=== PATIENT | male | born 1945 | race African-American/Black ===

== ENCOUNTER 2018-01-07 03:13 | Emergency (ER) | payer MEDICARE ==
[2018-01-07] MEDS ORDERED: ACETAMINOPHEN TAB 325 MG TAB PO STA (03:31)
--- NOTE | 2018-01-07 03:35 | ED ---
Extremity Problem HPI <Chidi Caballero - Last Filed: 01/07/18 06:05> - General Source: patient, RN notes reviewed Mode of arrival: ambulatory Limitations: no limitations <Avani Gore - Last Filed: 01/07/18 17:26> - General Chief complaint: Extremity Problem,Nontraumatic Stated complaint: shoulder pain Time Seen by Provider: 01/07/18 03:27 - History of Present Illness Initial comments: This is a 72-year-old male who presents to the emergency department with chief complaint of left shoulder pain. Patient states that 2 days ago he tripped and fell landing on his left shoulder. He states that he was trying to get onto the bus and did not notice any pain at that time. He states that he has also been moving and lifting heavy objects recently. He states that this evening, while sleeping on his left side, he awoke with left shoulder pain. He admits that the pain is reproducible. He denies any fevers or chills, chest pain or shortness of breath, nausea or vomiting, diaphoresis, constipation or diarrhea. (Avani Gore) - Related Data Home Medications Medication Instructions Recorded Confirmed Unknown Otc Cold & Sinus 2 cap PO ONCE 07/11/17 07/11/17 Previous Rx's Medication Instructions Recorded Albuterol Inhaler [Ventolin Hfa 2 puff INHALATION Q6HR #1 inhaler 07/13/17 Inhaler] Azithromycin [Zithromax Tri-Blair] 500 mg PO DAILY #7 tab 07/13/17 Azithromycin [Zithromax] 500 mg PO DAILY #5 tab 07/13/17 Cefuroxime Axetil [Ceftin] 500 mg PO BID #10 tab 07/13/17 predniSONE 10 mg PO DIRECTED #30 tab 07/13/17 Budesonide-Formot 160-4.5 Mcg 2 puff INHALATION RT-BID #1 inh 07/15/17 [Symbicort 160-4.5 Mcg Inhaler] Multivitamins, Thera [Multivitamin 1 each PO DAILY@1200 #30 tab 07/15/17 (formulary)] Allergies Allergy/AdvReac Type Severity Reaction Status Date / Time No Known Allergies Allergy Verified 01/07/18 03:19 Review of Systems ROS Other: All systems not noted in ROS Statement are negative. <Chidi Caballero - Last Filed: 01/07/18 06:05> ROS Other: All systems not noted in ROS Statement are negative. <Avani Gore - Last Filed: 01/07/18 17:26> ROS Statement: Those systems with pertinent positive or pertinent negative responses have been documented in the HPI. Past Medical History Past Medical History: Osteoarthritis (OA) History of Any Multi-Drug Resistant Organisms: None Reported Past Surgical History: Orthopedic Surgery, Tonsillectomy Additional Past Surgical History / Comment(s): lt knee sx for torn ligaments Past Anesthesia/Blood Transfusion Reactions: No Reported Reaction Past Psychological History: No Psychological Hx Reported Smoking Status: Current some day smoker Past Alcohol Use History: Occasional Past Drug Use History: None Reported - Past Family History Mother Family Medical History: CVA/TIA Father History Unknown: Yes <Avani Gore - Last Filed: 01/07/18 17:26> General Exam <Chidi Caballero - Last Filed: 01/07/18 06:05> Limitations: no limitations <Avani Goer - Last Filed: 01/07/18 17:26> - General Exam Comments Initial Comments: General: Awake and alert, well-developed; in no apparent distress. HEENT: Head atraumatic, normocephalic. Pupils are equal, round and reactive to light. Extraocular movements intact. Oropharynx moist without erythema or exudate. Neck: Supple. Normal ROM. Cardiovascular: Regular rate and rhythm. No murmurs, rubs or gallops. Chest symmetrical. Respiratory: Lungs clear to auscultation bilaterally. No wheezes, rales or rhonchi. Normal respiratory effort with no use of accessory muscles. Musculoskeletal: Normal ROM of the left shoulder. There is tenderness along the left scapular spine and surrounding musculature. No obvious gross deformities. Sensation is intact. Radial pulses are 2+ equal and palpable bilaterally. Skin: [place], warm and dry without rashes or lesions. Neurological: Alert and oriented x3. CN II-XII grossly intact. Speech is fluent and answers are appropriate. No focal neuro deficits. Psychiatric: Normal mood and affect. No overt signs of depression or anxiety noted. (Avani Gore) Vital Signs 01/07/18 01/07/18 01/07/18 03:15 05:16 06:21 Temperature 97.8 F 97.8 F 98.4 F Pulse Rate 71 60 75 Respiratory 18 18 16 Rate Blood Pressure 137/82 131/73 122/75 O2 Sat by Pulse 100 100 99 Oximetry Medical Decision Making - Lab Data Result diagrams: 01/07/18 04:10 01/07/18 04:10 <Chidi Caballero - Last Filed: 01/07/18 06:05> - Lab Data Result diagrams: 01/07/18 04:10 01/07/18 04:10 - Radiology Data Radiology results: report reviewed <Avani Gore - Last Filed: 01/07/18 17:26> - Medical Decision Making This is a 72-year-old male who presents to the emergency department with chief complaint of left shoulder pain. Patient states that he fell 2 days ago and landed on his shoulder. He states that he woke tonight with left shoulder pain. Pain is reproducible and there is a tenderness along the left scapular spine. X-ray of the left shoulder revealed no acute abnormalities. This case was discussed with attending physician, Dr. Caballero. Recommended cardiac workup. Case signed over to Dr. Caballero at 4 AM. (Avani Gore) - Lab Data Lab Results 01/07/18 01/07/18 01/07/18 Range/Units 04:10 04:10 04:10 WBC 11.2 H (3.8-10.6) k/uL RBC 4.11 L (4.30-5.90) m/uL Hgb 13.5 (13.0-17.5) gm/dL Hct 39.7 (39.0-53.0) % MCV 96.5 (80.0-100.0) fL MCH 32.8 (25.0-35.0) pg MCHC 34.0 (31.0-37.0) g/dL RDW 12.9 (11.5-15.5) % Plt Count 276 (150-450) k/uL Neutrophils % 68 % Lymphocytes % 23 % Monocytes % 6 % Eosinophils % 2 % Basophils % 0 % Neutrophils # 7.6 (1.3-7.7) k/uL Lymphocytes # 2.5 (1.0-4.8) k/uL Monocytes # 0.7 (0-1.0) k/uL Eosinophils # 0.2 (0-0.7) k/uL Basophils # 0.0 (0-0.2) k/uL PT (9.0-12.0) sec INR (<1.2) APTT (22.0-30.0) sec Sodium 136 L (137-145) mmol/L Potassium 4.4 (3.5-5.1) mmol/L Chloride 100 (98-107) mmol/L Carbon Dioxide 26 (22-30) mmol/L Anion Gap 10 mmol/L BUN 7 L (9-20) mg/dL Creatinine 0.80 (0.66-1.25) mg/dL Est GFR (CKD-EPI)AfAm >90 (>60 ml/min/1.73 sqM) Est GFR (CKD-EPI)NonAf >90 (>60 ml/min/1.73 sqM) Glucose 85 (74-99) mg/dL Calcium 9.0 (8.4-10.2) mg/dL Magnesium 1.7 (1.6-2.3) mg/dL Total Bilirubin 0.5 (0.2-1.3) mg/dL AST 33 (17-59) U/L ALT 25 (21-72) U/L Alkaline Phosphatase 79 (38-126) U/L Total Creatine Kinase 257 H (55-170) U/L CK-MB (CK-2) 2.7 H* (0.0-2.4) ng/mL CK-MB (CK-2) Rel Index 1.1 Troponin I <0.012 (0.000-0.034) ng/mL Total Protein 6.9 (6.3-8.2) g/dL Albumin 4.1 (3.5-5.0) g/dL 01/07/18 Range/Units 04:10 WBC (3.8-10.6) k/uL RBC (4.30-5.90) m/uL Hgb (13.0-17.5) gm/dL Hct (39.0-53.0) % MCV (80.0-100.0) fL MCH (25.0-35.0) pg MCHC (31.0-37.0) g/dL RDW (11.5-15.5) % Plt Count (150-450) k/uL Neutrophils % % Lymphocytes % % Monocytes % % Eosinophils % % Basophils % % Neutrophils # (1.3-7.7) k/uL Lymphocytes # (1.0-4.8) k/uL Monocytes # (0-1.0) k/uL Eosinophils # (0-0.7) k/uL Basophils # (0-0.2) k/uL PT 9.9 (9.0-12.0) sec INR 1.0 (<1.2) APTT 23.1 (22.0-30.0) sec Sodium (137-145) mmol/L Potassium (3.5-5.1) mmol/L Chloride (98-107) mmol/L Carbon Dioxide (22-30) mmol/L Anion Gap mmol/L BUN (9-20) mg/dL Creatinine (0.66-1.25) mg/dL Est GFR (CKD-EPI)AfAm (>60 ml/min/1.73 sqM) Est GFR (CKD-EPI)NonAf (>60 ml/min/1.73 sqM) Glucose (74-99) mg/dL Calcium (8.4-10.2) mg/dL Magnesium (1.6-2.3) mg/dL Total Bilirubin (0.2-1.3) mg/dL AST (17-59) U/L ALT (21-72) U/L Alkaline Phosphatase (38-126) U/L Total Creatine Kinase (55-170) U/L CK-MB (CK-2) (0.0-2.4) ng/mL CK-MB (CK-2) Rel Index Troponin I (0.000-0.034) ng/mL Total Protein (6.3-8.2) g/dL Albumin (3.5-5.0) g/dL - EKG Data EKG Comments: EKG 3:40:46. Normal sinus rhythm. Early repolarization. Ventricular rate 63 bpm, ID interval 182, QRS duration 96, QT/QTC 434/444 (Avani Gore) - Radiology Data X-ray left shoulder impression: Negative left shoulder exam. (Avani Gore) Disposition Is patient prescribed a controlled substance at d/c from ED?: No <Chidi Caballero - Last Filed: 01/07/18 06:05> Is patient prescribed a controlled substance at d/c from ED?: No <Avani Gore - Last Filed: 01/07/18 17:26> Clinical Impression: Shoulder pain, left Disposition: HOME SELF-CARE Condition: Good Instructions: Shoulder Pain (ED) Referrals: None,Stated [Primary Care Provider] - 1-2 days Elysia Camacho MD [REFERRING] - 1-2 days
--- NOTE | 2018-01-07 03:44 | XR ---
EXAMINATION TYPE: XR shoulder complete LT DATE OF EXAM: 01/07/2018 COMPARISON: NONE HISTORY: Left shoulder pain TECHNIQUE: 3 views FINDINGS: I see no fracture nor dislocation. Joint spaces are normal. There are no pathologic calcifi cations. IMPRESSION: Negative left shoulder exam.
[2018-01-07 04:20] LABS: Basophils % (A) 0 %; Eosinophils # (A) 0.2 k/uL (0-0.7); Eosinophils % (A) 2 %; HCT 39.7 % (39.0-53.0); HGB 13.5 gm/dL (13.0-17.5); Lymphocytes # (A) 2.5 k/uL (1.0-4.8); Lymphocytes % (A) 23 %; MCH 32.8 pg (25.0-35.0); MCV 96.5 fL (80.0-100.0); Mean Platelet Volume 6.2; Monocytes # (A) 0.7 k/uL (0-1.0); Monocytes % (A) 6 %; Neutrophils # (A) 7.6 k/uL (1.3-7.7); Neutrophils % (A) 68 %; Platelet Count 276 k/uL (150-450); RBC 4.11 m/uL (4.30-5.90); RDW 12.9 % (11.5-15.5); WBC 11.2 k/uL (3.8-10.6)
[2018-01-07 04:28] LABS: Partial Thromboplastin Time 23.1 sec (22.0-30.0); Prothrombin Time 9.9 sec (9.0-12.0)
[2018-01-07 04:30] LABS: ALT 25 U/L (21-72); AST 33 U/L (17-59); Albumin 4.1 g/dL (3.5-5.0); Alkaline Phosphatase 79 U/L (38-126); Anion Gap 10 mmol/L; Blood Urea Nitrogen 7 mg/dL (9-20); Carbon Dioxide 26 mmol/L (22-30); Chloride 100 mmol/L (98-107); Glucose 85 mg/dL (74-99); Magnesium 1.7 mg/dL (1.6-2.3); Potassium 4.4 mmol/L (3.5-5.1); Sodium 136 mmol/L (137-145); Total Bilirubin 0.5 mg/dL (0.2-1.3); Total Protein 6.9 g/dL (6.3-8.2)
[2018-01-07 04:32] LABS: Creatine Kinase 257 U/L (55-170)
--- NOTE | 2018-01-07 04:33 | XR ---
EXAMINATION TYPE: XR chest 2V DATE OF EXAM: 01/07/2018 COMPARISON: 07/14/2017 HISTORY: Chest pain TECHNIQUE: Frontal and lateral views of the chest are obtained. FINDINGS: Heart and mediastinum are normal. Lungs are clear. There are calcified granuloma at the [facility] pulmonary hilum. Bony thorax is intact. There is no pleural effusion. IMPRESSION: No active cardiopulmonary disease. No change.
[2018-01-07 04:45] LABS: Troponin I <0.012 ng/mL (0.000-0.034)
[2018-01-07 04:48] LABS: Creatine Kinase MB 2.7 ng/mL (0.0-2.4)
[2018-01-07 06:23] VITALS: BP 122/75; PULSE 75; RESP 16; TEMP 98.4
== END 2018-01-07 06:23 | disposition home or self-care (01) ==
LOC: EC 03:13
DX: M25.512 Pain in left shoulder (principal); F17.200 Nicotine dependence, unspecified, uncomplicated; Z79.899 Other long term (current) drug therapy; W01.0XXA Fall on same level from slipping, tripping and stumbling without subsequent striking against object, initial encounter; X50.0XXA Overexertion from strenuous movement or load, initial encounter; Y93.89 Activity, other specified
CPT/HCPCS: 36415; 71046; 80053; 82550; 82553; 83735; 84484; 85025; 85610; 85730; 93005; 99284

== ENCOUNTER 2019-01-05 18:10 | Emergency (ER) | payer MEDICARE ==
[2019-01-05 18:12] VITALS: RESP 18
[2019-01-05] MEDS ORDERED: SODIUM CHLORIDE 0.9% 1,000 ML IV STA ×2 (18:15→19:42)
--- NOTE | 2019-01-05 19:06 | ED ---
Nausea/Vomiting/Diarrhea HPI - General Chief complaint: Nausea/Vomiting/Diarrhea Stated complaint: Stomach pain/vomiting Time Seen by Provider: 01/05/19 18:15 Source: patient, RN notes reviewed Mode of arrival: ambulatory Limitations: no limitations - History of Present Illness Initial comments: This is a 73-year-old male the ER for evaluation. This man presents for evaluation of nausea vomiting, sudden onset of nausea vomiting prior to arrival. No abdominal pain associated. He also had some bowel movements of loose stools. Patient did actively spit up vomiting here in the emergency department. Denies fever. No prior history of similar issues. No failure hours of similar complaint. No recent travel history or sick contacts no blood MD complaint: nausea, vomiting, diarrhea -: hour(s) Description of Vomiting: food contents, watery Description of Diarrhea: water, mucous Associated Abdominal Pain: No Severity: mild Severity scale (1-10): 3 Consistency: constant Improves with: none Worsens with: none Associated Symptoms: nausea/vomiting, weakness - Related Data Home Medications Medication Instructions Recorded Confirmed Unknown Otc Cold & Sinus 2 cap PO ONCE 07/11/17 07/11/17 Previous Rx's Medication Instructions Recorded Albuterol Inhaler [Ventolin Hfa 2 puff INHALATION Q6HR #1 inhaler 07/13/17 Inhaler] Azithromycin [Zithromax Tri-Blair] 500 mg PO DAILY #7 tab 07/13/17 Azithromycin [Zithromax] 500 mg PO DAILY #5 tab 07/13/17 Cefuroxime Axetil [Ceftin] 500 mg PO BID #10 tab 07/13/17 predniSONE 10 mg PO DIRECTED #30 tab 07/13/17 Budesonide-Formot 160-4.5 Mcg 2 puff INHALATION RT-BID #1 inh 07/15/17 [Symbicort 160-4.5 Mcg Inhaler] Multivitamins, Thera [Multivitamin 1 each PO DAILY@1200 #30 tab 07/15/17 (formulary)] Allergies Allergy/AdvReac Type Severity Reaction Status Date / Time No Known Allergies Allergy Verified 01/05/19 18:12 Review of Systems ROS Statement: Those systems with pertinent positive or pertinent negative responses have been documented in the HPI. ROS Other: All systems not noted in ROS Statement are negative. Past Medical History Past Medical History: Osteoarthritis (OA) History of Any Multi-Drug Resistant Organisms: None Reported Past Surgical History: Orthopedic Surgery, Tonsillectomy Additional Past Surgical History / Comment(s): lt knee sx for torn ligaments Past Anesthesia/Blood Transfusion Reactions: No Reported Reaction Past Psychological History: No Psychological Hx Reported Smoking Status: Current some day smoker Past Alcohol Use History: Occasional Past Drug Use History: None Reported - Past Family History Mother Family Medical History: CVA/TIA Father History Unknown: Yes General Exam Limitations: no limitations General appearance: alert, in no apparent distress Head exam: Present: atraumatic, normocephalic, normal inspection Eye exam: Present: normal appearance, PERRL, EOMI. Absent: scleral icterus, conjunctival injection, periorbital swelling ENT exam: Present: normal exam, mucous membranes moist Neck exam: Present: normal inspection. Absent: tenderness, meningismus, lymphadenopathy Respiratory exam: Present: normal lung sounds bilaterally. Absent: respiratory distress, wheezes, rales, rhonchi, stridor Cardiovascular Exam: Present: normal rhythm, tachycardia, normal heart sounds. Absent: systolic murmur, diastolic murmur, rubs, gallop, clicks GI/Abdominal exam: Present: soft, normal bowel sounds. Absent: distended, tenderness, guarding, rebound, rigid Extremities exam: Present: normal inspection, full ROM, normal capillary refill. Absent: tenderness, pedal edema, joint swelling, calf tenderness Back exam: Present: normal inspection Neurological exam: Present: alert, oriented X3, CN II-XII intact Psychiatric exam: Present: normal affect, normal mood Skin exam: Present: warm, dry, intact, normal color. Absent: rash Course Vital Signs 01/05/19 18:11 Temperature 97.8 F Pulse Rate 101 H Respiratory 18 Rate Blood Pressure 163/80 O2 Sat by Pulse 98 Oximetry - Reevaluation(s) Reevaluation #1: 01/05/19 19:05 Medical record reviewed Reevaluation #2: 01/05/19 19:06 Symptoms resolved Medical Decision Making - Medical Decision Making 73 male the ER for evaluation nausea vomiting, diarrhea. Gastroneuritis. Symptoms improved will discharge on Zofran. - Lab Data Result diagrams: 01/05/19 18:51 01/05/19 18:51 Lab Results 01/05/19 01/05/19 01/05/19 Range/Units 18:51 18:51 18:51 WBC 11.8 H (3.8-10.6) k/uL RBC 4.53 (4.30-5.90) m/uL Hgb 15.0 (13.0-17.5) gm/dL Hct 45.3 (39.0-53.0) % MCV 100.2 H (80.0-100.0) fL MCH 33.2 (25.0-35.0) pg MCHC 33.1 (31.0-37.0) g/dL RDW 13.8 (11.5-15.5) % Plt Count 301 (150-450) k/uL Neutrophils % 76 % Lymphocytes % 18 % Monocytes % 3 % Eosinophils % 2 % Basophils % 0 % Neutrophils # 8.9 H (1.3-7.7) k/uL Lymphocytes # 2.1 (1.0-4.8) k/uL Monocytes # 0.4 (0-1.0) k/uL Eosinophils # 0.3 (0-0.7) k/uL Basophils # 0.0 (0-0.2) k/uL Sodium 137 (137-145) mmol/L Potassium 4.8 (3.5-5.1) mmol/L Chloride 98 (98-107) mmol/L Carbon Dioxide 19 L (22-30) mmol/L Anion Gap 20 mmol/L BUN 13 (9-20) mg/dL Creatinine 0.89 (0.66-1.25) mg/dL Est GFR (CKD-EPI)AfAm >90 (>60 ml/min/1.73 sqM) Est GFR (CKD-EPI)NonAf 86 (>60 ml/min/1.73 sqM) Glucose 64 L (74-99) mg/dL Plasma Lactic Acid Justin 3.3 H* (0.7-2.0) mmol/L Calcium 10.4 H (8.4-10.2) mg/dL Total Bilirubin 0.9 (0.2-1.3) mg/dL AST 45 (17-59) U/L ALT 14 L (21-72) U/L Alkaline Phosphatase 112 (38-126) U/L Creatine Kinase 153 (55-170) U/L Total Protein 8.2 (6.3-8.2) g/dL Albumin 4.9 (3.5-5.0) g/dL Amylase 105 (30-110) U/L Lipase 146 (23-300) U/L Disposition Clinical Impression: Dehydration, Gastroenteritis, Nausea & vomiting Disposition: HOME SELF-CARE Condition: Good Instructions (If sedation given, give patient instructions): Acute Nausea and Vomiting (ED) Is patient prescribed a controlled substance at d/c from ED?: No Referrals: None,Stated [Primary Care Provider] - 1-2 days
[2019-01-05 19:08] LABS: Basophils % (A) 0 %; Eosinophils # (A) 0.3 k/uL (0-0.7); Eosinophils % (A) 2 %; HCT 45.3 % (39.0-53.0); Lymphocytes # (A) 2.1 k/uL (1.0-4.8); Lymphocytes % (A) 18 %; MCH 33.2 pg (25.0-35.0); MCHC 33.1 g/dL (31.0-37.0); MCV 100.2 fL (80.0-100.0); Mean Platelet Volume 6.9; Monocytes # (A) 0.4 k/uL (0-1.0); Monocytes % (A) 3 %; Neutrophils # (A) 8.9 k/uL (1.3-7.7); Neutrophils % (A) 76 %; Platelet Count 301 k/uL (150-450); RBC 4.53 m/uL (4.30-5.90); RDW 13.8 % (11.5-15.5); WBC 11.8 k/uL (3.8-10.6)
[2019-01-05] MEDS ORDERED: HYDROmorphone 0.5 MG/0.5 ML SYRINGE IVP STA (19:12)
[2019-01-05 19:17] LABS: ALT 14 U/L (21-72); AST 45 U/L (17-59); Albumin 4.9 g/dL (3.5-5.0); Alkaline Phosphatase 112 U/L (38-126); Amylase 105 U/L (30-110); Anion Gap 20 mmol/L; Blood Urea Nitrogen 13 mg/dL (9-20); Calcium 10.4 mg/dL (8.4-10.2); Carbon Dioxide 19 mmol/L (22-30); Chloride 98 mmol/L (98-107); Creatine Kinase 153 U/L (55-170); Glucose 64 mg/dL (74-99); Lipase 146 U/L (23-300); Potassium 4.8 mmol/L (3.5-5.1); Sodium 137 mmol/L (137-145); Total Bilirubin 0.9 mg/dL (0.2-1.3); Total Protein 8.2 g/dL (6.3-8.2)
[2019-01-05] MEDS ORDERED: SODIUM CHLORIDE 0.9% 500 ML 500 ML IV STA (19:42)
[2019-01-05] MEDS ORDERED: DEXTROSE 50% SYRINGE 50 ML IVP STA (19:42)
[2019-01-05 20:34] LABS: Appearance,Urine Clear (Clear); Bilirubin,Urine Negative (Negative); Blood,Urine Negative (Negative); Color,Urine Light Yellow; Glucose,Urine (UA) 2+ (Negative); Leukocyte Esterase,Urine Negative (Negative); Nitrite,Urine Negative (Negative); PH, Urine 5.5 (5.0-8.0); Protein,Urine Trace (Negative); Specific Gravity,Urine 1.015 (1.001-1.035); Urobilinogen,Urine <2.0 mg/dL (<2.0)
[2019-01-05 20:40] VITALS: BP 133/75; PULSE 86; TEMP 98
[2019-01-05 21:45] LABS: Ketones,Urine 3+ (Negative)
== END 2019-01-05 20:40 | disposition home or self-care (01) ==
LOC: EC 18:10
DX: K52.9 Noninfective gastroenteritis and colitis, unspecified (principal); E86.0 Dehydration; R00.0 Tachycardia, unspecified; R53.1 Weakness; F17.200 Nicotine dependence, unspecified, uncomplicated; Z79.899 Other long term (current) drug therapy
CPT/HCPCS: 36415; 80053; 81003; 82150; 82550; 83605; 83690; 85025; 87086; 96361; 96374; 99284

== ENCOUNTER 2019-01-05 22:43 | Observation (INO) | payer MEDICARE ==
[2019-01-05] MEDS ORDERED: ONDANSETRON 4 MG/2 ML VIAL IVP STA (23:34)
[2019-01-05] MEDS ORDERED: SODIUM CHLORIDE 0.9% 500 ML 500 ML IV STA (23:34)
[2019-01-05 23:45] LABS: Basophils % (A) 0 %; Eosinophils # (A) 0.1 k/uL (0-0.7); Eosinophils % (A) 1 %; HCT 42.2 % (39.0-53.0); HGB 14.2 gm/dL (13.0-17.5); Lymphocytes # (A) 2.5 k/uL (1.0-4.8); Lymphocytes % (A) 24 %; MCH 33.1 pg (25.0-35.0); MCHC 33.8 g/dL (31.0-37.0); Mean Platelet Volume 6.7; Monocytes # (A) 0.7 k/uL (0-1.0); Monocytes % (A) 6 %; Neutrophils # (A) 7.3 k/uL (1.3-7.7); Neutrophils % (A) 68 %; Platelet Count 312 k/uL (150-450); RBC 4.31 m/uL (4.30-5.90); RDW 12.9 % (11.5-15.5); WBC 10.7 k/uL (3.8-10.6)
[2019-01-05 23:50] LABS: Appearance,Urine Clear (Clear); Bilirubin,Urine Negative (Negative); Blood,Urine Negative (Negative); Color,Urine Yellow; Glucose,Urine (UA) Negative (Negative); Ketones,Urine 2+ (Negative); Leukocyte Esterase,Urine Negative (Negative); Nitrite,Urine Negative (Negative); PH, Urine 5.5 (5.0-8.0); Protein,Urine Negative (Negative); Specific Gravity,Urine 1.016 (1.001-1.035); Urobilinogen,Urine <2.0 mg/dL (<2.0)
[2019-01-05 23:55] LABS: ALT 17 U/L (21-72); AST 37 U/L (17-59); Albumin 4.5 g/dL (3.5-5.0); Alkaline Phosphatase 104 U/L (38-126); Anion Gap 16 mmol/L; Blood Urea Nitrogen 11 mg/dL (9-20); Calcium 9.4 mg/dL (8.4-10.2); Carbon Dioxide 17 mmol/L (22-30); Chloride 103 mmol/L (98-107); Glucose 75 mg/dL (74-99); Lipase 96 U/L (23-300); Potassium 4.8 mmol/L (3.5-5.1); Sodium 136 mmol/L (137-145); Total Bilirubin 0.9 mg/dL (0.2-1.3); Total Protein 7.5 g/dL (6.3-8.2)
--- NOTE | 2019-01-06 | XR ---
EXAM: XR Abdomen, 2 Views CLINICAL HISTORY: ITS.REASON XR Reason: abdominal pain TECHNIQUE: Frontal view of the abdomen/pelvis with upright view of the abdomen. COMPARISON: Chest and abdomen radiographs 07/11/2017. FINDINGS: Intraperitoneal space: No free air. Gastrointestinal tract: Unremarkable. No dilation. Bones/joints: Degenerative changes seen throughout the spine. IMPRESSION: No dilated loops of bowel. If there is clinical concern for obstruction, recommend evaluation with CT.
--- NOTE | 2019-01-06 01:03 | CT ---
EXAM: CT Abdomen and Pelvis With Intravenous Contrast CLINICAL HISTORY: ITS.REASON CT Reason: Pain TECHNIQUE: Axial computed tomography images of the abdomen and pelvis with intravenous contrast. CTDI is 6.6, 6.8 mGy and DLP is 342.7, 220.5 mGy- cm. This CT exam was performed using one or more of the following dose reduction techniques: automated exposure control, adjustment of the mA and/or kV according to patient size, and/or use of iterative reconstruction technique. Delayed imaging was performed. COMPARISON: CT abdomen and pelvis 07/11/2017. FINDINGS: Lung bases: Unremarkable. No mass. No consolidation. ABDOMEN: Liver: Hepatic steatosis. Subcentimeter hypodensities in the liver are too small to characterize. Gallbladder and bile ducts: Unremarkable. No calcified stones. No ductal dilation. Pancreas: Unremarkable. No mass. No ductal dilation. Spleen: Calcified granulomas are seen in the spleen. Adrenals: Unremarkable. No mass. Kidneys and ureters: Unremarkable. No solid mass. No hydronephrosis. Stomach and bowel: There is focal wall thickening of the colon at the hepatic flexure. No obstruction. PELVIS: Appendix: No findings to suggest acute appendicitis. Bladder: Under distention of the urinary bladder with questionable wall thickening. Reproductive: Unremarkable as visualized. ABDOMEN and PELVIS: Intraperitoneal space: Unremarkable. No free air. No significant fluid collection. Bones/joints: No acute fracture. No dislocation. Degenerative changes seen throughout the lumbar spine. Soft tissues: Unremarkable. Vasculature: Unremarkable. No abdominal aortic aneurysm. Lymph nodes: Unremarkable. No enlarged lymph nodes. IMPRESSION: 1. There is focal wall thickening of the colon at the hepatic flexure. This could be seen with colitis in the appropriate clinical scenario. However, an underlying mass lesion is not entirely excluded. Recommend clinical correlation. 2. Under distention of the urinary bladder with questionable wall thickening. Recommend correlation for cystitis. 3. Hepatic steatosis.
[2019-01-06] MEDS ORDERED: SODIUM CHLORIDE 0.9% 1,000 ML IV STA (01:18)
[2019-01-06] MEDS ORDERED: ONDANSETRON 4 MG/2 ML VIAL IVP PRN (01:56)
[2019-01-06] MEDS ORDERED: NALOXONE 0.4 MG/ML 1 ML VIAL IV PRN (01:56)
--- NOTE | 2019-01-06 01:56 | ED ---
General Adult HPI - General Source: patient, RN notes reviewed, old records reviewed Mode of arrival: ambulatory Limitations: no limitations <Alex Worley - Last Filed: 01/06/19 02:00> <Chidi Caballreo - Last Filed: 01/11/19 21:18> - General Chief complaint: Nausea/Vomiting/Diarrhea Stated complaint: Dehydration-DC today 2100 Time Seen by Provider: 01/05/19 22:54 - History of Present Illness Initial comments: 33-year-old male patient presents ED with 1 day of nausea vomiting and diarrhea. Patient does not have any abdominal pain, denies chest pain shortness of breath. Patient was seen at this facility for these complaints and discharged, patient reports that upon returning to home HEENT he did have nausea and vomiting felt as if he has become dehydrated. Patient denies any other complaints at this time. Systemic: Pt denies fatigue, myalgia, fever/chills, rash. Pt denies weakness, night sweats, weight loss. Neuro: Pt denies headache, visual disturbances, syncope or pre-syncope. HEENT: Pt denies ocular discharge or irritation, otalgia, rhinorrhea, pharyngitis or notable lymphadenopathy. Cardiopulmonary: Pt denies chest pain, SOB, heart palpitations, dyspnea on exertion. Abdominal/GI: Pt denies abdominal pain. : Pt denies dysuria, burning w/ urination, frequency/urgency. Denies new onset urinary or bowel incontinence. MSK: Pt denies myalgia, loss of strength or function in extremities. Neuro: Pt denies new onset weakness, paresthesias. (Alex Worley) - Related Data Home Medications Medication Instructions Recorded Confirmed No Known Home Medications 01/06/19 01/06/19 Allergies Allergy/AdvReac Type Severity Reaction Status Date / Time No Known Allergies Allergy Verified 01/06/19 07:17 Review of Systems ROS Other: All systems not noted in ROS Statement are negative. <Alex Worley - Last Filed: 01/06/19 02:00> ROS Other: All systems not noted in ROS Statement are negative. <Chidi Caabllero - Last Filed: 01/11/19 21:18> ROS Statement: Those systems with pertinent positive or pertinent negative responses have been documented in the HPI. Past Medical History Past Medical History: Osteoarthritis (OA) History of Any Multi-Drug Resistant Organisms: None Reported Past Surgical History: Orthopedic Surgery, Tonsillectomy Additional Past Surgical History / Comment(s): lt knee sx for torn ligaments Past Anesthesia/Blood Transfusion Reactions: No Reported Reaction Past Psychological History: No Psychological Hx Reported Smoking Status: Current some day smoker Past Alcohol Use History: Occasional Past Drug Use History: None Reported - Past Family History Mother Family Medical History: CVA/TIA Father History Unknown: Yes <Alex Worley - Last Filed: 01/06/19 02:00> General Exam Limitations: no limitations <Alex Worley - Last Filed: 01/06/19 02:00> - General Exam Comments Initial Comments: Constitutional: NAD, AOX3, Pt has pleasant affect. HEENT: NC/AT, trachea midline, neck supple, no lymphadenopathy. Posterior pharynx non erythematous, without exudates. External ears appear normal, without discharge. Mucous membranes moist. Eyes PERRLA, EOM intact. There is no scleral icterus. No pallor noted. Cardiopulmonary: RRR, no murmurs, rubs or gallops, no JVD noted. Lungs CTAB in anterior and posterior [place]. No peripheral edema. Abdominal exam: Abdomen soft and non-distended. Abdomen very mildly tender to palpation. Vocal region. No other areas of abdominal tenderness. No guarding or rigidity no ecchymoses. Bowel sounds active in LLQ. No hepatosplenomegaly. No ecchymosis Neuro: CN II-XII grossly intact. No nuchal rigidity. MSK: No posterior calf tenderness bilaterally, homans sign negative bilaterally. Posterior tibialis and radial pulse +2 bilaterally. Sensation intact in upper and lower extremities. Full active ROM in upper and lower extremities, 5/5 stregnth. (Alex Worley) Course Vital Signs 01/05/19 01/06/19 01/06/19 22:45 01:14 01:30 Temperature 98.5 F Pulse Rate 88 80 86 Respiratory 18 16 16 Rate Blood Pressure 142/79 126/80 136/91 O2 Sat by Pulse 100 98 99 Oximetry Medical Decision Making - Lab Data Result diagrams: 01/05/19 23:00 01/05/19 23:00 <Alex Worley - Last Filed: 01/06/19 02:00> - Lab Data Result diagrams: 01/05/19 23:00 01/05/19 23:00 <Chidi Caballero - Last Filed: 01/11/19 21:18> - Medical Decision Making 33-year-old male patient presents ED with 1 day of nausea vomiting and diarrhea. Patient does not have any abdominal pain, denies chest pain shortness of breath. Patient was seen at this facility for these complaints and discharged, patient reports that upon returning to home HEENT he did have nausea and vomiting felt as if he has become dehydrated. Patient denies any other complaints at this time. Pt VSS, afebrile. Physical exam displayed: Abdomen soft and non-distended. Abdomen very mildly tender to palpation. Vocal region. No other areas of abdominal tenderness. No guarding or rigidity no ecchymoses. Laboratory investigations are non-impressive CBC, cmp. Lactic acid mildly elevated at 2.2, improved from prior 3.3. UA displayed +2 ketones. This is improved from earlier study. CT M pelvis display focal wall thickening of the colon at the hepatic flexure possible colitis, underlying mass nontender excluded. I distention of the urinary bladder. Hepatic steatosis. Patient will be admitted for continued evaluation and symptomatic treatment of nausea and vomiting. Patient likely has viral gastroenteritis-like syndrome. GI consulted. Case discussed with Dr. Muhammad. (Alex Worley) I saw this patient in conjunction with the physician seed laboratory assistant. I performed independent history and physical exam. Agree with case management. (Chidi Caballero) - Lab Data Lab Results 01/05/19 01/05/19 01/05/19 Range/Units 23:00 23:00 23:00 WBC 10.7 H (3.8-10.6) k/uL RBC 4.31 (4.30-5.90) m/uL Hgb 14.2 (13.0-17.5) gm/dL Hct 42.2 (39.0-53.0) % MCV 98.0 (80.0-100.0) fL MCH 33.1 (25.0-35.0) pg MCHC 33.8 (31.0-37.0) g/dL RDW 12.9 (11.5-15.5) % Plt Count 312 (150-450) k/uL Neutrophils % 68 % Lymphocytes % 24 % Monocytes % 6 % Eosinophils % 1 % Basophils % 0 % Neutrophils # 7.3 (1.3-7.7) k/uL Lymphocytes # 2.5 (1.0-4.8) k/uL Monocytes # 0.7 (0-1.0) k/uL Eosinophils # 0.1 (0-0.7) k/uL Basophils # 0.0 (0-0.2) k/uL Sodium 136 L (137-145) mmol/L Potassium 4.8 (3.5-5.1) mmol/L Chloride 103 (98-107) mmol/L Carbon Dioxide 17 L (22-30) mmol/L Anion Gap 16 mmol/L BUN 11 (9-20) mg/dL Creatinine 0.88 (0.66-1.25) mg/dL Est GFR (CKD-EPI)AfAm >90 (>60 ml/min/1.73 sqM) Est GFR (CKD-EPI)NonAf 87 (>60 ml/min/1.73 sqM) Glucose 75 (74-99) mg/dL Lactic Ac Sepsis Rflx Plasma Lactic Acid Justin 2.2 H* (0.7-2.0) mmol/L Calcium 9.4 (8.4-10.2) mg/dL Total Bilirubin 0.9 (0.2-1.3) mg/dL AST 37 (17-59) U/L ALT 17 L (21-72) U/L Alkaline Phosphatase 104 (38-126) U/L Total Protein 7.5 (6.3-8.2) g/dL Albumin 4.5 (3.5-5.0) g/dL Lipase 96 (23-300) U/L PSA Screen (0.0-4.0) ng/mL TSH (0.465-4.680) mIU/L Urine Color Urine Appearance (Clear) Urine pH (5.0-8.0) Ur Specific [place] (1.001-1.035) Urine Protein (Negative) Urine Glucose (UA) (Negative) Urine Ketones (Negative) Urine Blood (Negative) Urine Nitrite (Negative) Urine Bilirubin (Negative) Urine Urobilinogen (<2.0) mg/dL Ur Leukocyte Esterase (Negative) 01/05/19 01/05/19 01/05/19 Range/Units 23:00 23:00 23:45 WBC (3.8-10.6) k/uL RBC (4.30-5.90) m/uL Hgb (13.0-17.5) gm/dL Hct (39.0-53.0) % MCV (80.0-100.0) fL MCH (25.0-35.0) pg MCHC (31.0-37.0) g/dL RDW (11.5-15.5) % Plt Count (150-450) k/uL Neutrophils % % Lymphocytes % % Monocytes % % Eosinophils % % Basophils % % Neutrophils # (1.3-7.7) k/uL Lymphocytes # (1.0-4.8) k/uL Monocytes # (0-1.0) k/uL Eosinophils # (0-0.7) k/uL Basophils # (0-0.2) k/uL Sodium (137-145) mmol/L Potassium (3.5-5.1) mmol/L Chloride (98-107) mmol/L Carbon Dioxide (22-30) mmol/L Anion Gap mmol/L BUN (9-20) mg/dL Creatinine (0.66-1.25) mg/dL Est GFR (CKD-EPI)AfAm (>60 ml/min/1.73 sqM) Est GFR (CKD-EPI)NonAf (>60 ml/min/1.73 sqM) Glucose (74-99) mg/dL Lactic Ac Sepsis Rflx Plasma Lactic Acid Justin (0.7-2.0) mmol/L Calcium (8.4-10.2) mg/dL Total Bilirubin (0.2-1.3) mg/dL AST (17-59) U/L ALT (21-72) U/L Alkaline Phosphatase (38-126) U/L Total Protein (6.3-8.2) g/dL Albumin (3.5-5.0) g/dL Lipase (23-300) U/L PSA Screen 0.6 (0.0-4.0) ng/mL TSH 3.350 (0.465-4.680) mIU/L Urine Color Yellow Urine Appearance Clear (Clear) Urine pH 5.5 (5.0-8.0) Ur Specific [place] 1.016 (1.001-1.035) Urine Protein Negative (Negative) Urine Glucose (UA) Negative (Negative) Urine Ketones 2+ H (Negative) Urine Blood Negative (Negative) Urine Nitrite Negative (Negative) Urine Bilirubin Negative (Negative) Urine Urobilinogen <2.0 (<2.0) mg/dL Ur Leukocyte Esterase Negative (Negative) 01/05/19 Range/Units 23:56 WBC (3.8-10.6) k/uL RBC (4.30-5.90) m/uL Hgb (13.0-17.5) gm/dL Hct (39.0-53.0) % MCV (80.0-100.0) fL MCH (25.0-35.0) pg MCHC (31.0-37.0) g/dL RDW (11.5-15.5) % Plt Count (150-450) k/uL Neutrophils % % Lymphocytes % % Monocytes % % Eosinophils % % Basophils % % Neutrophils # (1.3-7.7) k/uL Lymphocytes # (1.0-4.8) k/uL Monocytes # (0-1.0) k/uL Eosinophils # (0-0.7) k/uL Basophils # (0-0.2) k/uL Sodium (137-145) mmol/L Potassium (3.5-5.1) mmol/L Chloride (98-107) mmol/L Carbon Dioxide (22-30) mmol/L Anion Gap mmol/L BUN (9-20) mg/dL Creatinine (0.66-1.25) mg/dL Est GFR (CKD-EPI)AfAm (>60 ml/min/1.73 sqM) Est GFR (CKD-EPI)NonAf (>60 ml/min/1.73 sqM) Glucose (74-99) mg/dL Lactic Ac Sepsis Rflx Y Plasma Lactic Acid Justin (0.7-2.0) mmol/L Calcium (8.4-10.2) mg/dL Total Bilirubin (0.2-1.3) mg/dL AST (17-59) U/L ALT (21-72) U/L Alkaline Phosphatase (38-126) U/L Total Protein (6.3-8.2) g/dL Albumin (3.5-5.0) g/dL Lipase (23-300) U/L PSA Screen (0.0-4.0) ng/mL TSH (0.465-4.680) mIU/L Urine Color Urine Appearance (Clear) Urine pH (5.0-8.0) Ur Specific [place] (1.001-1.035) Urine Protein (Negative) Urine Glucose (UA) (Negative) Urine Ketones (Negative) Urine Blood (Negative) Urine Nitrite (Negative) Urine Bilirubin (Negative) Urine Urobilinogen (<2.0) mg/dL Ur Leukocyte Esterase (Negative) Disposition Is patient prescribed a controlled substance at d/c from ED?: No <Alex Worley - Last Filed: 01/06/19 02:00> <Chidi Caballero - Last Filed: 01/11/19 21:18> Clinical Impression: Nausea & vomiting, Diarrhea Disposition: ADMITTED IP TO THIS HOSP Condition: Serious
[2019-01-06] MEDS ORDERED: SODIUM CHLORIDE 0.9% 1,000 ML IV SCH ×2 (02:00→09:45)
[2019-01-06 04:08] VITALS: BMI 22.6
--- NOTE | 2019-01-06 09:41 | HP ---
HISTORY AND PHYSICAL CHIEF COMPLAINT: [id number] white male with a one-day history of nausea, vomiting, diarrhea. No abdominal pain, chest pain or shortness of breath. He became dehydrated at home after a recent discharge for the above statements and he had some nausea, vomiting, came into the hospital. He is admitted with a GI consult for gastroenteritis and possible early bowel obstruction. HOME MEDICATIONS: Negative. ALLERGIES: NEGATIVE. REVIEW OF SYSTEMS: Fourteen-point review of systems negative except for mentioned in HPI. MEDICAL HISTORY: Osteoarthritis. SURGERIES: 1. Orthopedic surgery. 2. Tonsillectomy. 3. Knee ligament tears. SOCIAL HISTORY: Current everyday smoker. No alcohol. No drugs. PHYSICAL EXAMINATION: Temperature 98.5, pulse 88, respiratory rate 16 to 18, blood pressure 120s to 140s over 70s to 80s. CONSTITUTIONAL: Alert and oriented x3. PSYCH: Fair mood and affect. CARDIOVASCULAR: Regular rate and rhythm. ABDOMEN: Soft. HEMATOLOGY: Negative Homans. GI: Increased bowel sounds. No mass or organomegaly. No hepatosplenomegaly. MUSCULOSKELETAL: Full range of motion. CT scan shows some thickening in the colon. Underlying mass not excluded. Dr. Harmon is consulted for possible endoscopy. Possible viral gastroenteritis. Will continue with rehydration and wait for intervention by GI physician. He had lactic acidosis secondary to possible gastroenteritis and dehydration. Continue with IV fluids. MMODL / IJN: [id number] /
--- NOTE | 2019-01-06 12:32 | P.CONS ---
History of Present Illness - Reason for Consult Consult date: 01/06/19 Computed tomography scan with thickening and colon Requesting physician: Isidro Fay - Chief Complaint Nausea, vomiting and diarrhea - History of Present Illness 73-year-old male with a medical history significant for osteoarthritis who presented to the hospital with complaints of nausea, vomiting and diarrhea. The patient reports that symptoms are currently improved. However, he reports feeling dehydrated secondary to the symptoms and not feeling well so he prese nted for further evaluation. He denies any associated abdominal pain. He denies any sick contacts, medications, unusual foods or travel prior to the symptoms. He denies any fevers. He reports that bowel movements are generally every day with no blood or black tarry stool reported. He is had no further bowel movements since being admitted. He denies any family history of colon cancer. No prior colonoscopy reported. On admission to the hospital he had a WBC 10.7, hemoglobin 14.2, platelet count 312,000, total bilirubin 0.9, alkaline phosphatase 104, AST 37 and ALT 17. Lactic acid was elevated at 2.2 on admission and trended down to 0.7. Computed tomography scan abdomen showed focal thickening of the colon at the hepatic flexure as well as under distention of the urinary bladder and hepatic steatosis. Patient is currently seen lying in bed reporting that he is feeling hungry. Review of Systems REVIEW OF SYSTEMS: CONSTITUTIONAL: Denies any fevers, chills, weight change or fatigue. CARDIOVASCULAR: Denies any chest pain, palpitations high or low blood pressures RESPIRATORY: Denies any shortness of breath, hemoptysis or cough. GENITOURINARY: No dysuria or hematuria. MUSCULOSKELETAL: No weakness reported. SKIN: Denies any new rashes or lesions, jaundice or pallor. PSYCHIATRIC: Denies any depression or anxiety. NEUROLOGY: Denies headache, denies any new focal deficits. EARS/NOSE/THROAT: No recent hearing change, congestion, nasal discharge or sore throat. EYES: No pain in eyes, discharge or change in vision. GASTROINTESTINAL: As per HPI. Past Medical History Past Medical History: Osteoarthritis (OA) History of Any Multi-Drug Resistant Organisms: None Reported Past Surgical History: Orthopedic Surgery, Tonsillectomy Additional Past Surgical History / Comment(s): lt knee sx for torn ligaments Past Anesthesia/Blood Transfusion Reactions: No Reported Reaction Smoking Status: Current some day smoker - Past Family History Mother Family Medical History: CVA/TIA Father History Unknown: Yes Medications and Allergies Home Medications Medication Instructions Recorded Confirmed Type No Known Home Medications 01/06/19 01/06/19 History Allergies Allergy/AdvReac Type Severity Reaction Status Date / Time No Known Allergies Allergy Verified 01/06/19 07:17 Physical Exam Vitals: Vital Signs Temp Pulse Pulse Resp BP BP Pulse Ox 01/06/19 08:00 98.5 F 74 18 122/69 100 01/06/19 04:00 16 01/06/19 03:59 98.4 F 75 16 119/61 99 01/06/19 03:52 98.1 F 79 16 114/66 96 01/06/19 01:30 86 16 136/91 99 01/06/19 01:14 80 16 126/80 98 01/05/19 22:45 98.5 F 88 18 142/79 100 Intake and Output 01/05/19 01/06/19 01/06/19 22:59 06:59 14:59 Other: Voiding Method Toilet # Voids 1 Weight 67.585 kg On physical examination, patient appears comfortable in no apparent distress. HEAD: Normocephalic, atraumatic. EYES: No scleral icterus. No conjunctival injection. MOUTH: No lesions, tongue midline. NECK: Trachea midline, no gross abnormalities. CHEST: Clear to auscultation with no wheezing or rhonchi appreciated. HEART: Regular rate and rhythm. ABDOMEN: Soft, obese. Bowel sounds are positive. No organomegaly. No guarding or rigidity. EXTREMITIES: No pedal edema. SKIN: No rashes, no jaundice. NEUROLOGIC: Alert and oriented x3. No focal deficits. Results CBC & Chem 7: 01/05/19 23:00 01/05/19 23:00 Labs: Abnormal Lab Results - Last 24 Hours (Table) 01/05/19 01/05/19 01/05/19 Range/Units 23:00 23:00 23:00 WBC 10.7 H (3.8-10.6) k/uL Sodium 136 L (137-145) mmol/L Carbon Dioxide 17 L (22-30) mmol/L Plasma Lactic Acid Justin 2.2 H* (0.7-2.0) mmol/L ALT 17 L (21-72) U/L Urine Ketones (Negative) 01/05/19 Range/Units 23:45 WBC (3.8-10.6) k/uL Sodium (137-145) mmol/L Carbon Dioxide (22-30) mmol/L Plasma Lactic Acid Justin (0.7-2.0) mmol/L ALT (21-72) U/L Urine Ketones 2+ H (Negative) CT scan - abdomen: report reviewed (Computed tomography scan abdomen showed focal thickening of the colon at the hepatic flexure as well as under distention of the urinary bladder and hepatic steatosis.) Assessment and Plan (1) Abnormal CT scan, colon Narrative/Plan: 73-year-old who presented with symptoms of a gastroenteritis reporting an acute episode of nausea, vomiting and diarrhea with associated dehydration. He denies any chronicity of his symptoms. He denies any change in bowel habits, blood per rectum, or unintentional weight loss. No family history of colon cancer. The patient has not had a colonoscopy in the past. He did have CT findings with reports of focal thickening at the hepatic flexure of the colon. Unclear if these are secondary to under distention, infectious etiology, with mass not excluded. Current Visit: Yes Status: Acute Code(s): R93.3 - ABNORMAL FINDINGS ON DX IMAGING OF PRT DIGESTIVE TRACT SNOMED Code(s): 311786709 (2) Gastroenteritis Narrative/Plan: Nausea, vomiting and loose stool with acute duration, currently resolved. Likely result of a acute viral or bacterial gastroenteritis, with no leukocytosis or fevers on presentation. Current Visit: No Status: Acute Code(s): K52.9 - NONINFECTIVE GASTROENTERITIS AND COLITIS, UNSPECIFIED SNOMED Code(s): 60660280 (3) Diarrhea Current Visit: Yes Status: Acute Code(s): R19.7 - DIARRHEA, UNSPECIFIED SNOMED Code(s): 85515454 (4) Nausea & vomiting Current Visit: Yes Status: Acute Code(s): R11.2 - NAUSEA WITH VOMITING, UNSPECIFIED SNOMED Code(s): 76412123 Plan: Supportive care Will start full liquid diet and advance to low fiber diet Continue to monitor labs including CBC and BMP and symptoms If further loose stool will order stool studies for further investigation Abnormal CT finding of thickening at the hepatic flexure, this needs to be investigated with colonoscopy and was discussed with the patient at length, if he continues to improve clinically okay for discharge with follow-up for outpatient colonoscopy, however if patient has worsening of symptoms or labs will plan for an inpatient colonoscopy Thank you for allowing us to participate in the care of the patient we will continue to follow
[2019-01-06 16:13] VITALS: BP 120/68; PULSE 65; RESP 16; TEMP 98.2
== END 2019-01-06 18:08 | disposition home or self-care (01) ==
LOC: EC 22:43 → 1SOBS 01-06 03:28
PROVIDERS: ADMIT Family Medicine; ATTEND Family Medicine
DX: K52.9 Noninfective gastroenteritis and colitis, unspecified (principal); E86.0 Dehydration; E87.2 Acidosis; R93.3 Abnormal findings on diagnostic imaging of other parts of digestive tract; M19.90 Unspecified osteoarthritis, unspecified site; R94.8 Abnormal results of function studies of other organs and systems; F17.200 Nicotine dependence, unspecified, uncomplicated; N32.89 Other specified disorders of bladder; K76.0 Fatty (change of) liver, not elsewhere classified; Z79.899 Other long term (current) drug therapy; Z79.51 Long term (current) use of inhaled steroids; Z82.3 Family history of stroke
CPT/HCPCS: 96376; 96361 ×2; 96374; 99285; 36415; 80053; 84443; 83605 ×2; 83690; 85025; 81003; 74018; 74177; G0378; G0103; J2405 ×2; Q9967

== ENCOUNTER 2021-06-16 17:58 | Emergency (ER) | payer MEDICARE ==
[2021-06-16] MEDS ORDERED: ALBUTEROL HFA INHALER INHALATION STA (20:11)
[2021-06-16] MEDS ORDERED: ACETAMINOPHEN TAB 500 MG TAB PO STA (20:11)
--- NOTE | 2021-06-16 20:31 | ED ---
URI HPI - General Chief Complaint: Upper Respiratory Infection Stated Complaint: Vomiting/cough Time Seen by Provider: 06/16/21 19:45 Source: patient, RN notes reviewed Mode of arrival: ambulatory Limitations: no limitations - History of Present Illness Initial Comments: This a 75-year-old male presents emergency Department with chief complaint cough congestion. Patient states she's been sick last 2-3 days. Patient states he said no sick contacts. Patient states he does not have a COVID-19 vaccination. Patient states he feels very achy, cough that is dry and Hankey denies feeling short breath, chest pain, back pain no nausea vomiting diarrhea constipation no other complaints. Patient is an occasional smoker. - Related Data Previous Rx's Medication Instructions Recorded Albuterol Sulfate [Proair Hfa] 1 - 2 puff INHALATION Q4HR PRN 06/16/21 #8.5 gm Azithromycin [Zithromax] 500 mg PO DAILY #5 tab 06/16/21 Allergies Allergy/AdvReac Type Severity Reaction Status Date / Time No Known Allergies Allergy Verified 06/16/21 20:13 Review of Systems ROS Statement: Those systems with pertinent positive or pertinent negative responses have been documented in the HPI. ROS Other: All systems not noted in ROS Statement are negative. Past Medical History Past Medical History: Osteoarthritis (OA), Pneumonia History of Any Multi-Drug Resistant Organisms: None Reported Past Surgical History: Orthopedic Surgery, Tonsillectomy Additional Past Surgical History / Comment(s): lt knee sx for torn ligaments Past Anesthesia/Blood Transfusion Reactions: No Reported Reaction Past Psychological History: No Psychological Hx Reported Smoking Status: Current some day smoker Past Alcohol Use History: Occasional Past Drug Use History: None Reported - Past Family History Mother Family Medical History: CVA/TIA Father History Unknown: Yes General Exam Limitations: no limitations General appearance: alert, in no apparent distress Head exam: Present: atraumatic, normocephalic, normal inspection Eye exam: Present: normal appearance, PERRL, EOMI. Absent: scleral icterus, conjunctival injection, periorbital swelling ENT exam: Present: normal exam, normal oropharynx, mucous membranes moist Neck exam: Present: normal inspection. Absent: tenderness, meningismus, lymphadenopathy Respiratory exam: Present: wheezes, rhonchi. Absent: normal lung sounds bilaterally, respiratory distress, rales, stridor Cardiovascular Exam: Present: regular rate, normal rhythm, normal heart sounds. Absent: systolic murmur, diastolic murmur, rubs, gallop, clicks Course Vital Signs 06/16/21 06/16/21 19:34 21:45 Temperature 100.7 F H 98.1 F Pulse Rate 92 89 Respiratory 22 16 Rate Blood Pressure 166/95 141/85 O2 Sat by Pulse 91 L 93 L Oximetry Medical Decision Making - Medical Decision Making 75-year-old presents for cough congestion. Patient is COVID-19 negative, x-rays unremarkable patient is febrile. Patient has mild leukocytosis though just feels improved after antipyretics. Patient given Rocephin we discharged on azithromycin return parameters were discussed. - Lab Data Result diagrams: 06/16/21 21:42 06/16/21 21:42 Lab Results 06/16/21 06/16/21 06/16/21 Range/Units 20:31 21:42 21:42 WBC 13.0 H (3.8-10.6) k/uL RBC 3.94 L (4.30-5.90) m/uL Hgb 14.0 (13.0-17.5) gm/dL Hct 40.7 (39.0-53.0) % MCV 103.3 H (80.0-100.0) fL MCH 35.6 H (25.0-35.0) pg MCHC 34.4 (31.0-37.0) g/dL RDW 13.7 (11.5-15.5) % Plt Count 223 (150-450) k/uL MPV 6.8 Neutrophils % 52 % Lymphocytes % 38 % Monocytes % 5 % Eosinophils % 1 % Basophils % 0 % Neutrophils # 6.8 (1.3-7.7) k/uL Lymphocytes # 5.0 H (1.0-4.8) k/uL Monocytes # 0.6 (0-1.0) k/uL Eosinophils # 0.1 (0-0.7) k/uL Basophils # 0.1 (0-0.2) k/uL Macrocytosis Slight Sodium 132 L (137-145) mmol/L Potassium 3.9 (3.5-5.1) mmol/L Chloride 99 (98-107) mmol/L Carbon Dioxide 24 (22-30) mmol/L Anion Gap 9 mmol/L BUN 4 L (9-20) mg/dL Creatinine 0.76 (0.66-1.25) mg/dL Est GFR (CKD-EPI)AfAm >90 (>60 ml/min/1.73 sqM) Est GFR (CKD-EPI)NonAf >90 (>60 ml/min/1.73 sqM) Glucose 106 H (74-99) mg/dL Calcium 8.8 (8.4-10.2) mg/dL Total Bilirubin 1.0 (0.2-1.3) mg/dL AST 33 (17-59) U/L ALT 12 (4-49) U/L Alkaline Phosphatase 107 (38-126) U/L Total Protein 7.5 (6.3-8.2) g/dL Albumin 3.8 (3.5-5.0) g/dL Coronavirus (PCR) Not Detected (Not Detectd) Disposition Clinical Impression: Pneumonia Disposition: HOME SELF-CARE Condition: Stable Instructions (If sedation given, give patient instructions): Pneumonia (ED) Additional Instructions: Please return to the Emergency Department if symptoms worsen or any other concerns. Prescriptions: Albuterol Sulfate [Proair Hfa] 1 - 2 puff INHALATION Q4HR PRN #8.5 gm PRN Reason: difficulty in breathing Azithromycin [Zithromax] 500 mg PO DAILY #5 tab Is patient prescribed a controlled substance at d/c from ED?: No Referrals: None,Stated [Primary Care Provider] - 1-2 days Time of Disposition: 22:44
--- NOTE | 2021-06-16 20:56 | XR ---
EXAMINATION TYPE: XR chest 2V DATE OF EXAM: 06/16/2021 COMPARISON: 01/07/2018 INDICATION: Cough TECHNIQUE: Frontal and lateral views of the chest are obtained. FINDINGS: The heart size is normal. The pulmonary vasculature is normal. No suspicious focal consolidation. Appearance of the right hilum is stable. IMPRESSION: 1. No acute pulmonary process.
[2021-06-16 21:49] VITALS: BP 141/85; PULSE 89; RESP 16; TEMP 98.1
[2021-06-16 22:26] LABS: Basophils # (A) 0.1 k/uL (0-0.2); Basophils % (A) 0 %; Eosinophils # (A) 0.1 k/uL (0-0.7); Eosinophils % (A) 1 %; HCT 40.7 % (39.0-53.0); Lymphocytes % (A) 38 %; MCH 35.6 pg (25.0-35.0); MCHC 34.4 g/dL (31.0-37.0); MCV 103.3 fL (80.0-100.0); Macrocytosis Slight; Mean Platelet Volume 6.8; Monocytes # (A) 0.6 k/uL (0-1.0); Monocytes % (A) 5 %; Neutrophils # (A) 6.8 k/uL (1.3-7.7); Neutrophils % (A) 52 %; Platelet Count 223 k/uL (150-450); RBC 3.94 m/uL (4.30-5.90); RDW 13.7 % (11.5-15.5)
[2021-06-16 22:36] LABS: ALT 12 U/L (4-49); AST 33 U/L (17-59); African American GFR (CKD) >90 (>60 ml/min/1.73 sqM); Albumin 3.8 g/dL (3.5-5.0); Alkaline Phosphatase 107 U/L (38-126); Anion Gap 9 mmol/L; Blood Urea Nitrogen 4 mg/dL (9-20); Calcium 8.8 mg/dL (8.4-10.2); Carbon Dioxide 24 mmol/L (22-30); Chloride 99 mmol/L (98-107); Glucose 106 mg/dL (74-99); Non-African American GFR(CKD) >90 (>60 ml/min/1.73 sqM); Potassium 3.9 mmol/L (3.5-5.1); Sodium 132 mmol/L (137-145); Total Protein 7.5 g/dL (6.3-8.2)
[2021-06-16] MEDS ORDERED: cefTRIAXone IN SWFI 1,000 MG/10 ML SYRINGE IVP STA (22:43)
[2021-06-16] MEDS ORDERED: DEXAMETHASONE SOD PHOSPHATE 10 MG/ML 1 ML VIAL IVP STA (22:43)
[2021-06-16] MEDS ORDERED: ONDANSETRON 4 MG ODT STARTER PACK 2 TAB BTL PO STA (22:58)
== END 2021-06-16 23:16 | disposition home or self-care (01) ==
LOC: EC 17:58
DX: J18.9 Pneumonia, unspecified organism (principal); F17.200 Nicotine dependence, unspecified, uncomplicated; Z20.822 Contact with and (suspected) exposure to COVID-19
CPT/HCPCS: 36415; 71046; 80053; 85025; 87635; 96374; 96375; 99283

== ENCOUNTER 2023-04-28 07:23 | Observation (INO) | payer MEDICARE ==
--- NOTE | 2023-04-28 07:34 | ED ---
General Adult HPI - General Source: patient, RN notes reviewed Mode of arrival: ambulatory Limitations: no limitations <Jules Bell - Last Filed: 04/28/23 07:33> <Mónica Shepard - Last Filed: 05/01/23 15:44> - General Stated complaint: weakness Time Seen by Provider: 04/28/23 07:33 - History of Present Illness Initial comments: This a 77-year-old male presents emergency Department with chief complaint of generalized weakness. He states he woke up this morning just feels weak all over he has no specific complaints concerned he may be dehydrated. He states not been eating and drinking as much as usual. He does not see a primary care physician and denies any severe past medical history. He denies any headache, dizziness, chest pain, shortness of breath, vomiting diarrhea no dysuria no hematuria. He denies any weakness of his upper extremities or lower extremities. Denies any back pain. (Jules Bell) 77-year-old male with no reported past medical history who presents to the emergency department reporting generalized weakness, nausea and vomiting. Patient states that he has not ate or drank anything yesterday or today due to his upset stomach and gas. He has had multiple episodes of nonbilious, nonbloody vomiting. Patient's feels dehydrated. He denies any fevers. No chest pain or trouble breathing. No sick contacts. Denies diarrhea. Last bowel movement was this morning and was normal color and consistency for him. He does admit to some generalized abdominal pain. He does not take any medications. No other alleviating, precipitating or modifying factors (Sa marina Shepard) - Related Data Home Medications Medication Instructions Recorded Confirmed No Known Home Medications 12/10/22 04/28/23 Allergies Allergy/AdvReac Type Severity Reaction Status Date / Time No Known Allergies Allergy Verified 04/28/23 09:26 Review of Systems ROS Other: All systems not noted in ROS Statement are negative. <Jules Bell - Last Filed: 04/28/23 07:33> ROS Other: All systems not noted in ROS Statement are negative. <Mónica Shepard - Last Filed: 05/01/23 15:44> ROS Statement: Those systems with pertinent positive or pertinent negative responses have been documented in the HPI. Past Medical History Past Medical History: Osteoarthritis (OA), Pneumonia History of Any Multi-Drug Resistant Organisms: None Reported Past Surgical History: Orthopedic Surgery, Tonsillectomy Additional Past Surgical History / Comment(s): lt knee sx for torn ligaments Past Anesthesia/Blood Transfusion Reactions: No Reported Reaction Past Psychological History: No Psychological Hx Reported Smoking Status: Current every day smoker Past Alcohol Use History: Daily, Heavy Past Drug Use History: None Reported - Past Family History Mother Family Medical History: CVA/TIA Father History Unknown: Yes <Jules Bell - Last Filed: 04/28/23 07:33> General Exam <Jules Bell - Last Filed: 04/28/23 07:33> General appearance: alert, in no apparent distress Head exam: Present: atraumatic, normocephalic, normal inspection Eye exam: Present: normal appearance, PERRL, EOMI. Absent: scleral icterus, conjunctival injection, periorbital swelling ENT exam: Present: normal exam, mucous membranes dry Neck exam: Present: normal inspection. Absent: tenderness, meningismus, lymphadenopathy Respiratory exam: Present: normal lung sounds bilaterally. Absent: respiratory distress, wheezes, rales, rhonchi, stridor Cardiovascular Exam: Present: normal rhythm, tachycardia, normal heart sounds. Absent: systolic murmur, diastolic murmur, rubs, gallop, clicks GI/Abdominal exam: Present: soft, normal bowel sounds. Absent: distended, tenderness, guarding, rebound, rigid Extremities exam: Present: normal inspection, full ROM, normal capillary refill. Absent: tenderness, pedal edema, joint swelling, calf tenderness Back exam: Present: normal inspection Neurological exam: Present: alert, oriented X3, CN II-XII intact Psychiatric exam: Present: normal affect, normal mood Skin exam: Present: warm, dry, intact, normal color. Absent: rash <Mónica Shepard - Last Filed: 05/01/23 15:44> - General Exam Comments Initial Comments: Visual Physical Exam Vital signs reviewed General: Well-appearing, nontoxic, no acute distress. Head: Normocephalic, atraumatic Eyes: PERRLA, EOMI ENT: Airway patent Chest: Nonlabored breathing Skin: No visual rash, normal skin tone Neuro: Alert and oriented 3 Musculoskeletal: No gross abnormalities (Jules Bell) Course Vital Signs 04/28/23 04/28/23 04/28/23 07:31 08:59 12:00 Temperature 98.1 F 97.8 F 97.9 F Pulse Rate 115 H 79 79 Respiratory 18 18 23 Rate Blood Pressure 129/94 157/98 140/83 O2 Sat by Pulse 100 96 Oximetry 04/28/23 04/28/23 14:52 16:29 Temperature 99.4 F Pulse Rate 87 85 Respiratory 18 17 Rate Blood Pressure 147/84 135/76 O2 Sat by Pulse 96 95 Oximetry Medical Decision Making <Jules Bell - Last Filed: 04/28/23 07:33> - Lab Data Result diagrams: 05/01/23 07:45 05/01/23 07:45 <Mónica Shepard - Last Filed: 05/01/23 15:44> - Medical Decision Making I performed a quick note portion of this chart signed Jules Bell PA-C (Jules Bell) Was pt. sent in by a medical professional or institution (Dr. PA, ENVIRONMENTAL RESEARCH PROJECT MANAGER, urgent care, hospital, or senior living...) When possible be specific @ -No Did you speak to anyone other than the patient for history (EMS, parent, family, police, friend...)? What history was obtained from this source @ -No Did you review nursing and triage notes (agree or disagree)? Why? @ -I reviewed and agree with nursing and triage notes Were old charts reviewed (outside hosp., previous admission, EMS record, old EKG, old radiological studies, urgent care reports/EKG's, senior living records)? Report findings @ -Several old discharge summaries reviewed as patient provides limited history - appears to have been previously seen and admitted for similar complaints Differential Diagnosis (chest pain, altered mental status, abdominal pain women, abdominal pain men, vaginal bleeding, weakness, fever, dyspnea, syncope, headache, dizziness, GI bleed, back pain, seizure, CVA, palpatations, mental health, musculoskeletal)? @ -colitis, gastroenteritis, bowel obstruction, dehydration EKG interpreted by me (3pts min.). @ -Yes and demonstrates sinus rhythm with rate of 94. VA interval 125. QRS 87. QTC 433. No acute ST segment elevations or depressions X-rays interpreted by me (1pt min.). @ -None done CT interpreted by me (1pt min.). @ -yes and demonstrates no acute process. U/S interpreted by me (1pt. min.). @ -None done What testing was considered but not performed or refused? (CT, X-rays, U/S, labs)? Why? @ -None What meds were considered but not given or refused? Why? @ -None Did you discuss the management of the patient with other professionals (professionals i.e. Dr., PA, ENVIRONMENTAL RESEARCH PROJECT MANAGER, lab, RT, psych nurse, social professionals, punch press operator helper, teacher, physics technical officer, showcase trimmer)? Give summary @ -spoke with Dr. grover who will admit patient Was smoking cessation discussed for >3mins.? @ -No Was critical care preformed (if so, how long)? @ -No Were there social determinants of health that impacted care today? How? (Homelessness, low income, unemployed, alcoholism, drug addiction, transportation, low edu. Level, literacy, decrease access to med. care, [facility], rehab)? @ -No Was there de-escalation of care discussed even if they declined (Discuss DNR or withdrawal of care, Hospice)? DNR status @ -No What co-morbidities impacted this encounter? (DM, HTN, Smoking, COPD, CAD, Cancer, CVA, ARF, Chemo, Hep., AIDS, mental health diagnosis, sleep apnea, morbid obesity)? @ -etoh use Was patient admitted / discharged? Hospital course, mention meds given and route, prescriptions, significant lab abnormalities, going to OR and other pertinent info. @ -Upon arrival patient placed into trauma 2. IV established. Patient given orange juice and crackers but glucose stays low and patient vomits. He is given iv dextrose. Labs conducted. Labs performed. CT completed. CT demonstrates fluid filled stomach and bowel. Spoke with patient who continues to vomit. Due to lab abnormalities, recommended admission for which patient agreed to. Spoke with Dr. Grover for admission. Undiagnosed new problem with uncertain prognosis? @ -Yes Drug Therapy requiring intensive monitoring for toxicity (Heparin, Nitro, Insulin, Cardizem)? @ -No Were any procedures done? @ -No Diagnosis/symptom? @ -acute n/v, acute hypoglycemia, lactic acidosis Acute, or Chronic, or Acute on Chronic? @ -acute Uncomplicated (without systemic symptoms) or Complicated (systemic symptoms)? @ -complicated Side effects of treatment? @ -No Exacerbation, Progression, or Severe Exacerbation? @ -No Poses a threat to life or bodily function? How? (Chest pain, [place], [place], pneumonia, PE, COPD, DKA, ARF, appy, cholecystitis, CVA, Diverticulitis, Homicidal, Suicidal, threat to staff... and all critical care pts) @ -No (Mónica Shepard) - Lab Data Lab Results 04/28/23 04/28/23 04/28/23 Range/Units 08:09 08:09 08:09 WBC (3.8-10.6) k/uL RBC (4.30-5.90) m/uL Hgb (13.0-17.5) gm/dL Hct (39.0-53.0) % MCV (80.0-100.0) fL MCH (25.0-35.0) pg MCHC (31.0-37.0) g/dL RDW (11.5-15.5) % Plt Count (150-450) k/uL MPV Neutrophils % (Manual) % Lymphocytes % (Manual) % Monocytes % (Manual) % Neutrophils # (Manual) (1.3-7.7) k/uL Lymphocytes # (Manual) (1.0-4.8) k/uL Monocytes # (Manual) (0-1.0) k/uL Nucleated RBCs (0-0) /100 WBC Manual Slide Review Macrocytosis PT 11.0 (9.0-12.0) sec INR 1.1 (<1.2) APTT 24.8 (22.0-30.0) sec Sodium 134 L (137-145) mmol/L Potassium 5.0 (3.5-5.1) mmol/L Chloride 98 (98-107) mmol/L Carbon Dioxide 11 L (22-30) mmol/L Anion Gap 25 mmol/L BUN 8 L (9-20) mg/dL Creatinine 0.93 (0.66-1.25) mg/dL Est GFR (CKD-EPI)AfAm >90 (>60 ml/min/1.73 sqM) Est GFR (CKD-EPI)NonAf 80 (>60 ml/min/1.73 sqM) Glucose 40 L* (74-99) mg/dL POC Glucose (mg/dL) (70-110) mg/dL POC Glu Slip Cover Sewer ID Lactic Ac Sepsis Rflx Plasma Lactic Acid Justin 4.4 H* (0.7-2.0) mmol/L Calcium 9.6 (8.4-10.2) mg/dL Magnesium 1.8 (1.6-2.3) mg/dL Total Bilirubin 1.0 (0.2-1.3) mg/dL AST 43 (17-59) U/L ALT 16 (4-49) U/L Alkaline Phosphatase 127 H (38-126) U/L Troponin I (0.000-0.034) ng/mL Total Protein 9.2 H (6.3-8.2) g/dL Albumin 4.6 (3.5-5.0) g/dL Lipase (23-300) U/L Urine Color Urine Appearance (Clear) Urine pH (5.0-8.0) Ur Specific [place] (1.001-1.035) Urine Protein (Negative) Urine Glucose (UA) (Negative) Urine Ketones (Negative) Urine Blood (Negative) Urine Nitrite (Negative) Urine Bilirubin (Negative) Urine Urobilinogen (<2.0) mg/dL Ur Leukocyte Esterase (Negative) Urine RBC (0-5) /hpf Urine WBC (0-5) /hpf Urine WBC Clumps (None) /hpf Hyaline Casts (0-2) /lpf Urine Mucus (None) /hpf 04/28/23 04/28/23 04/28/23 Range/Units 08:09 08:09 08:39 WBC (3.8-10.6) k/uL RBC (4.30-5.90) m/uL Hgb (13.0-17.5) gm/dL Hct (39.0-53.0) % MCV (80.0-100.0) fL MCH (25.0-35.0) pg MCHC (31.0-37.0) g/dL RDW (11.5-15.5) % Plt Count (150-450) k/uL MPV Neutrophils % (Manual) % Lymphocytes % (Manual) % Monocytes % (Manual) % Neutrophils # (Manual) (1.3-7.7) k/uL Lymphocytes # (Manual) (1.0-4.8) k/uL Monocytes # (Manual) (0-1.0) k/uL Nucleated RBCs (0-0) /100 WBC Manual Slide Review Macrocytosis PT (9.0-12.0) sec INR (<1.2) APTT (22.0-30.0) sec Sodium (137-145) mmol/L Potassium (3.5-5.1) mmol/L Chloride (98-107) mmol/L Carbon Dioxide (22-30) mmol/L Anion Gap mmol/L BUN (9-20) mg/dL Creatinine (0.66-1.25) mg/dL Est GFR (CKD-EPI)AfAm (>60 ml/min/1.73 sqM) Est GFR (CKD-EPI)NonAf (>60 ml/min/1.73 sqM) Glucose (74-99) mg/dL POC Glucose (mg/dL) (70-110) mg/dL POC Glu Slip Cover Sewer ID Lactic Ac Sepsis Rflx Y Plasma Lactic Acid Justin (0.7-2.0) mmol/L Calcium (8.4-10.2) mg/dL Magnesium (1.6-2.3) mg/dL Total Bilirubin (0.2-1.3) mg/dL AST (17-59) U/L ALT (4-49) U/L Alkaline Phosphatase (38-126) U/L Troponin I <0.012 (0.000-0.034) ng/mL Total Protein (6.3-8.2) g/dL Albumin (3.5-5.0) g/dL Lipase 72 (23-300) U/L Urine Color Urine Appearance (Clear) Urine pH (5.0-8.0) Ur Specific [place] (1.001-1.035) Urine Protein (Negative) Urine Glucose (UA) (Negative) Urine Ketones (Negative) Urine Blood (Negative) Urine Nitrite (Negative) Urine Bilirubin (Negative) Urine Urobilinogen (<2.0) mg/dL Ur Leukocyte Esterase (Negative) Urine RBC (0-5) /hpf Urine WBC (0-5) /hpf Urine WBC Clumps (None) /hpf Hyaline Casts (0-2) /lpf Urine Mucus (None) /hpf 04/28/23 04/28/23 04/28/23 Range/Units 09:23 09:28 09:45 WBC 16.8 H (3.8-10.6) k/uL RBC 4.35 (4.30-5.90) m/uL Hgb 14.6 (13.0-17.5) gm/dL Hct 44.4 (39.0-53.0) % MCV 102.2 H (80.0-100.0) fL MCH 33.6 (25.0-35.0) pg MCHC 32.9 (31.0-37.0) g/dL RDW 14.1 (11.5-15.5) % Plt Count 211 (150-450) k/uL MPV 7.7 Neutrophils % (Manual) 35 % Lymphocytes % (Manual) 60 % Monocytes % (Manual) 5 % Neutrophils # (Manual) 5.88 (1.3-7.7) k/uL Lymphocytes # (Manual) 10.08 H (1.0-4.8) k/uL Monocytes # (Manual) 0.84 (0-1.0) k/uL Nucleated RBCs 0 (0-0) /100 WBC Manual Slide Review Performed Macrocytosis Slight PT (9.0-12.0) sec INR (<1.2) APTT (22.0-30.0) sec Sodium (137-145) mmol/L Potassium (3.5-5.1) mmol/L Chloride (98-107) mmol/L Carbon Dioxide (22-30) mmol/L Anion Gap mmol/L BUN (9-20) mg/dL Creatinine (0.66-1.25) mg/dL Est GFR (CKD-EPI)AfAm (>60 ml/min/1.73 sqM) Est GFR (CKD-EPI)NonAf (>60 ml/min/1.73 sqM) Glucose (74-99) mg/dL POC Glucose (mg/dL) 45 L (70-110) mg/dL POC Glu Slip Cover Sewer ID Deirdre Major Lactic Ac Sepsis Rflx Plasma Lactic Acid Justin (0.7-2.0) mmol/L Calcium (8.4-10.2) mg/dL Magnesium (1.6-2.3) mg/dL Total Bilirubin (0.2-1.3) mg/dL AST (17-59) U/L ALT (4-49) U/L Alkaline Phosphatase (38-126) U/L Troponin I (0.000-0.034) ng/mL Total Protein (6.3-8.2) g/dL Albumin (3.5-5.0) g/dL Lipase (23-300) U/L Urine Color Light Yellow Urine Appearance Clear (Clear) Urine pH 5.5 (5.0-8.0) Ur Specific [place] 1.016 (1.001-1.035) Urine Protein 1+ H (Negative) Urine Glucose (UA) 3+ H (Negative) Urine Ketones 4+ H (Negative) Urine Blood Negative (Negative) Urine Nitrite Negative (Negative) Urine Bilirubin Negative (Negative) Urine Urobilinogen <2.0 (<2.0) mg/dL Ur Leukocyte Esterase Negative (Negative) Urine RBC 1 (0-5) /hpf Urine WBC 6 H (0-5) /hpf Urine WBC Clumps Rare H (None) /hpf Hyaline Casts 3 H (0-2) /lpf Urine Mucus Rare H (None) /hpf 04/28/23 Range/Units 09:50 WBC (3.8-10.6) k/uL RBC (4.30-5.90) m/uL Hgb (13.0-17.5) gm/dL Hct (39.0-53.0) % MCV (80.0-100.0) fL MCH (25.0-35.0) pg MCHC (31.0-37.0) g/dL RDW (11.5-15.5) % Plt Count (150-450) k/uL MPV Neutrophils % (Manual) % Lymphocytes % (Manual) % Monocytes % (Manual) % Neutrophils # (Manual) (1.3-7.7) k/uL Lymphocytes # (Manual) (1.0-4.8) k/uL Monocytes # (Manual) (0-1.0) k/uL Nucleated RBCs (0-0) /100 WBC Manual Slide Review Macrocytosis PT (9.0-12.0) sec INR (<1.2) APTT (22.0-30.0) sec Sodium (137-145) mmol/L Potassium (3.5-5.1) mmol/L Chloride (98-107) mmol/L Carbon Dioxide (22-30) mmol/L Anion Gap mmol/L BUN (9-20) mg/dL Creatinine (0.66-1.25) mg/dL Est GFR (CKD-EPI)AfAm (>60 ml/min/1.73 sqM) Est GFR (CKD-EPI)NonAf (>60 ml/min/1.73 sqM) Glucose (74-99) mg/dL POC Glucose (mg/dL) 131 H (70-110) mg/dL POC Glu Slip Cover Sewer ID Deirdre Major Lactic Ac Sepsis Rflx Plasma Lactic Acid Justin (0.7-2.0) mmol/L Calcium (8.4-10.2) mg/dL Magnesium (1.6-2.3) mg/dL Total Bilirubin (0.2-1.3) mg/dL AST (17-59) U/L ALT (4-49) U/L Alkaline Phosphatase (38-126) U/L Troponin I (0.000-0.034) ng/mL Total Protein (6.3-8.2) g/dL Albumin (3.5-5.0) g/dL Lipase (23-300) U/L Urine Color Urine Appearance (Clear) Urine pH (5.0-8.0) Ur Specific [place] (1.001-1.035) Urine Protein (Negative) Urine Glucose (UA) (Negative) Urine Ketones (Negative) Urine Blood (Negative) Urine Nitrite (Negative) Urine Bilirubin (Negative) Urine Urobilinogen (<2.0) mg/dL Ur Leukocyte Esterase (Negative) Urine RBC (0-5) /hpf Urine WBC (0-5) /hpf Urine WBC Clumps (None) /hpf Hyaline Casts (0-2) /lpf Urine Mucus (None) /hpf Disposition <Jules Bell - Last Filed: 04/28/23 07:33> Is patient prescribed a controlled substance at d/c from ED?: No Time of Disposition: 11:54 Decision to Admit Reason: Admit from EC Decision Date: 04/28/23 Decision Time: 11:54 <Mónica Shepard - Last Filed: 05/01/23 15:44> Clinical Impression: Nausea & vomiting, Ileus, Leukocytosis, Hypoglycemia, Metabolic acidemia, Lactic acidosis, Abnormal finding on urinalysis Disposition: ADMITTED IP TO THIS HOSP Condition: Stable
[2023-04-28 08:35] LABS: INR 1.1 (<1.2); Partial Thromboplastin Time 24.8 sec (22.0-30.0)
[2023-04-28 08:36] LABS: ALT 16 U/L (4-49); AST 43 U/L (17-59); African American GFR (CKD) >90 (>60 ml/min/1.73 sqM); Albumin 4.6 g/dL (3.5-5.0); Alkaline Phosphatase 127 U/L (38-126); Anion Gap 25 mmol/L; Blood Urea Nitrogen 8 mg/dL (9-20); Calcium 9.6 mg/dL (8.4-10.2); Carbon Dioxide 11 mmol/L (22-30); Chloride 98 mmol/L (98-107); Magnesium 1.8 mg/dL (1.6-2.3); Non-African American GFR(CKD) 80 (>60 ml/min/1.73 sqM); Sodium 134 mmol/L (137-145); Total Protein 9.2 g/dL (6.3-8.2)
[2023-04-28 08:40] LABS: Glucose 40 mg/dL (74-99)
[2023-04-28] MEDS ORDERED: DEXTROSE 50% SYRINGE 50 ML IVP STA (09:12)
[2023-04-28] MEDS ORDERED: SODIUM CHLORIDE 0.9% 2,000 ML IV ONE (09:13)
--- NOTE | 2023-04-28 09:14 | XR ---
EXAMINATION TYPE: XR chest 2V DATE OF EXAM: 04/28/2023 COMPARISON: 06/16/2021 HISTORY: Shortness of breath TECHNIQUE: Frontal and lateral views of the chest are obtained. FINDINGS: Scattered senescent parenchymal changes noted. Hyperinflation compatible with COPD. No evidence for infiltrate. No evidence for atelectasis. Heart size is stable. Mediastinal structures are stable and grossly unremarkable. No evidence for hilar prominence. Degenerative changes dorsal spine. IMPRESSION: 1. No evidence for acute pulmonary disease.
[2023-04-28 09:24] LABS: Glucose,Whole Blood 45 mg/dL (70-110)
[2023-04-28 09:37] LABS: HCT 44.4 % (39.0-53.0); HGB 14.6 gm/dL (13.0-17.5); MCH 33.6 pg (25.0-35.0); MCHC 32.9 g/dL (31.0-37.0); MCV 102.2 fL (80.0-100.0); Macrocytosis Slight; Mean Platelet Volume 7.7; Platelet Count 211 k/uL (150-450); RBC 4.35 m/uL (4.30-5.90); RDW 14.1 % (11.5-15.5); WBC 16.8 k/uL (3.8-10.6)
[2023-04-28 09:51] LABS: Glucose,Whole Blood 131 mg/dL (70-110)
[2023-04-28 10:04] LABS: Appearance,Urine Clear (Clear); Bilirubin,Urine Negative (Negative); Blood,Urine Negative (Negative); Color,Urine Light Yellow; Glucose,Urine (UA) 3+ (Negative); Hyaline Casts,Urine 3 /lpf (0-2); Leukocyte Esterase,Urine Negative (Negative); Mucus,Urine Rare /hpf; Nitrite,Urine Negative (Negative); PH, Urine 5.5 (5.0-8.0); Protein,Urine 1+ (Negative); RBC,Urine 1 /hpf (0-5); Specific Gravity,Urine 1.016 (1.001-1.035); Urobilinogen,Urine <2.0 mg/dL (<2.0); WBC,Urine 6 /hpf (0-5)
[2023-04-28 10:12] LABS: Ketones,Urine 4+ (Negative)
[2023-04-28 10:44] LABS: Lymphocytes # (M) 10.08 k/uL (1.0-4.8); Monocytes # (M) 0.84 k/uL (0-1.0); Neutrophils # (M) 5.88 k/uL (1.3-7.7); Neutrophils % (M) 35 %; Nucleated Red Blood Cells 0 /100 WBC (0-0); Total Cells Counted 100
--- NOTE | 2023-04-28 11:14 | CT ---
EXAMINATION TYPE: CT abdomen pelvis w con DATE OF EXAM: 04/28/2023 COMPARISON: 01/06/2019 HISTORY: Elevated WBC, Loss of apetite, Hypoglycemia CT DLP: 672.6 mGycm CONTRAST: CT scan of the abdomen and pelvis is performed without Oral Contrast and with IV Contrast, patient in jected with 100 ml mL of Isovue 300. FINDINGS: LUNG BASES-: No visible nodule. No infiltrate. Small hiatal hernia noted. LIVER/GB: No calcified gallstones. Simple hepatic cyst posterior segment right hepatic lobe measuri ng 1.5 cm. Biliary tree is of normal caliber. PANCREAS: No inflammation. No distinct mass. SPLEEN: No splenic enlargement. No lesion seen. ADRENALS: No nodule. No thickening. KIDNEYS/BLADDER: No hydronephrosis. No nephrolithiasis. No distinct renal mass. Mild urinary bladd er wall thickening could reflect underlying cystitis. Correlate clinically. BOWEL: Normal appendix. Normal bowel caliber. No inflammation. There is limited distention of the c olon therefore limiting evaluation. There is nonspecific fluid distention of the stomach. GENITAL ORGANS: No gross abnormality. LYMPH NODES: No greater than 1cm abdominal or pelvic lymph nodes are appreciated. AORTA: No significant abnormality. OSSEOUS STRUCTURES: No significant abnormality is seen. OTHER: No significant additional abnormality is seen. IMPRESSION: 1. Correlate for nonspecific urinary bladder cystitis. 2. Limited distention of the colon. 3. Hepatic cyst. 4. Fluid distention of the stomach.
[2023-04-28] MEDS ORDERED: ONDANSETRON 4 MG/2 ML VIAL IVP STA (11:38)
[2023-04-28] MEDS ORDERED: cefTRIAXone IN SWFI 1,000 MG/10 ML SYRINGE IVP STA (11:41)
[2023-04-28] MEDS ORDERED: ONDANSETRON 4 MG/2 ML VIAL IVP PRN (11:54)
[2023-04-28] MEDS ORDERED: NALOXONE 0.4 MG/ML 1 ML VIAL IV PRN (11:54)
[2023-04-28] MEDS: PANTOPRAZOLE 40 MG/10 ML VIAL IV SCH (12:50)
[2023-04-28] MEDS: SODIUM CHLORIDE 0.9% 1,000 ML IV SCH ×2 (12:50→21:21)
[2023-04-28] MEDS ORDERED: chlordiazePOXIDE 25 MG CAP PO PRN (13:34)
[2023-04-28] MEDS ORDERED: LORazepam 2 MG/ML INJ IV PRN ×2 (13:34)
[2023-04-28] MEDS ORDERED: THIAMINE 100 MG/ML 2 ML VIAL IM STA (13:34)
--- NOTE | 2023-04-28 13:42 | P.HPIM ---
History of Present Illness H&P Date: 04/28/23 Chief Complaint: Nausea vomiting abdominal pain * 77-year-old gentleman with past medical history significant for alcohol use, history of osteoarthritis, not taking any medications at home presented to the emergency department with complaints of abdominal pain and generalized weakness. Patient says he woke up this morning feeling weak all over patient states he had multiple episodes of vomiting, no blood was noted. Patient said he was not able to keep anything down he started to feel weak and decided to come to the emergency * Patient does endorse history of alcohol use and his last drink was yesterday. Patient complained of one episode of loose stool. * Workup in ER included basic metabolic panel which showed hyponatremia sodium 134 blood glucose of 40 lactic to 4.4 AST of 43, ALT 16 troponin 0.012. Lipase is negative * Urinalysis shows wbc, nitrite and leukocyte esterase negative * CT abdomen and pelvis showed distention of colon, distention of stomach as well as suspicion for bladder cystitis * Patient resuscitated with IV fluid and admitted to medical floor for further management and to monitor for patient for eyelids versus partial bowel obstruction REVIEW OF SYSTEMS: Nausea, vomiting, abdominal pain, weakness CONSTITUTIONAL: No fever, no malaise, no fatigue. HEENT: No recent visual problems or hearing problems. Denied any sore throat. CARDIOVASCULAR: No chest pain, orthopnea, PND, no palpitations, no syncope. PULMONARY: No shortness of breath, no cough, no hemoptysis. GASTROINTESTINAL: No diarrhea, no nausea, no vomiting, no abdominal pain. NEUROLOGICAL: No headaches, no weakness, no numbness. HEMATOLOGICAL: Denies any bleeding or petechiae. GENITOURINARY: Denies any burning micturition, frequency, or urgency. MUSCULOSKELETAL/RHEUMATOLOGICAL: Denies any joint pain, swelling, or any muscle pain. ENDOCRINE: Denies any polyuria or polydipsia. PHYSICAL EXAMINATION: GENERAL: The patient is alert and oriented x3, not in any acute distress. Well developed, well nourished. HEENT: Pupils are round and equally reacting to light. EOMI. CARDIOVASCULAR: S1 and S2 present. No murmurs, rubs, or gallops. PULMONARY: Chest is clear to auscultation, no wheezing or crackles. ABDOMEN: Soft, distended, nontender on palpation MUSCULOSKELETAL: No joint swelling or deformity. EXTREMITIES: No cyanosis, clubbing, or pedal edema. NEUROLOGICAL: Gross neurological examination did not reveal any focal deficits. SKIN: No rashes. Past Medical History Past Medical History: Osteoarthritis (OA), Pneumonia History of Any Multi-Drug Resistant Organisms: None Reported Past Surgical History: Orthopedic Surgery, Tonsillectomy Additional Past Surgical History / Comment(s): lt knee sx for torn ligaments Past Anesthesia/Blood Transfusion Reactions: No Reported Reaction Past Psychological History: No Psychological Hx Reported Smoking Status: Current every day smoker Past Alcohol Use History: Daily, Heavy Past Drug Use History: None Reported - Past Family History Mother Family Medical History: CVA/TIA Father History Unknown: Yes Medications and Allergies Home Medications Medication Instructions Recorded Confirmed Type No Known Home Medications 12/10/22 04/28/23 History Allergies Allergy/AdvReac Type Severity Reaction Status Date / Time No Known Allergies Allergy Verified 04/28/23 09:26 Physical Exam Vitals: Vital Signs Temp Pulse Resp BP Pulse Ox 04/28/23 12:00 97.9 F 79 23 140/83 96 04/28/23 08:59 97.8 F 79 18 157/98 04/28/23 07:31 98.1 F 115 H 18 129/94 100 Intake and Output 04/27/23 04/28/23 04/28/23 22:59 06:59 14:59 Other: Weight 61.235 kg Results CBC & Chem 7: 04/28/23 09:28 04/28/23 08:09 Labs: Abnormal Lab Results - Last 24 Hours (Table) 04/28/23 04/28/23 04/28/23 Range/Units 08:09 08:09 09:23 WBC (3.8-10.6) k/uL MCV (80.0-100.0) fL Lymphocytes # (Manual) (1.0-4.8) k/uL Sodium 134 L (137-145) mmol/L Carbon Dioxide 11 L (22-30) mmol/L BUN 8 L (9-20) mg/dL Glucose 40 L* (74-99) mg/dL POC Glucose (mg/dL) 45 L (70-110) mg/dL Plasma Lactic Acid Justin 4.4 H* (0.7-2.0) mmol/L Alkaline Phosphatase 127 H (38-126) U/L Total Protein 9.2 H (6.3-8.2) g/dL Urine Protein (Negative) Urine Glucose (UA) (Negative) Urine Ketones (Negative) Urine WBC (0-5) /hpf Urine WBC Clumps (None) /hpf Hyaline Casts (0-2) /lpf Urine Mucus (None) /hpf 04/28/23 04/28/23 04/28/23 Range/Units 09:28 09:45 09:50 WBC 16.8 H (3.8-10.6) k/uL MCV 102.2 H (80.0-100.0) fL Lymphocytes # (Manual) 10.08 H (1.0-4.8) k/uL Sodium (137-145) mmol/L Carbon Dioxide (22-30) mmol/L BUN (9-20) mg/dL Glucose (74-99) mg/dL POC Glucose (mg/dL) 131 H (70-110) mg/dL Plasma Lactic Acid Justin (0.7-2.0) mmol/L Alkaline Phosphatase (38-126) U/L Total Protein (6.3-8.2) g/dL Urine Protein 1+ H (Negative) Urine Glucose (UA) 3+ H (Negative) Urine Ketones 4+ H (Negative) Urine WBC 6 H (0-5) /hpf Urine WBC Clumps Rare H (None) /hpf Hyaline Casts 3 H (0-2) /lpf Urine Mucus Rare H (None) /hpf Assessment and Plan Assessment: Assessment and plan * Acute gastritis * Alcohol use disorder * Sepsis secondary to UTI * Recurrent nausea and vomiting with distended colon suspect ileus versus partial small bowel obstruction * Acute cystitis * In regards to gastritis recurrent nausea and vomiting patient given IV Protonix. Continue patient on IV fluids. Advance diet as tolerated. Gen. surgery consulted CT abdomen pelvis reviewed * In regards to cystitis urine cultures ordered continue patient on IV Rocephin. Blood cultures ordered as well * In regards to lactic acidosis is likely secondary to recurrent nausea vomiting and dehydration. Blood cultures ordered continue fluid resuscitation continue IV antibiotic * In regards to alcohol use, continue patient on thiamine, folic acid continue to monitor for alcohol withdrawal protocol. Ativan as needed for withdrawal * CODE STATUS is full code
[2023-04-28] MEDS: HEPARIN SODIUM,PORCINE 5,000 UNIT/ML 1 ML VIAL SQ SCH (15:03)
[2023-04-28 17:23] LABS: Glucose,Whole Blood 79 mg/dL (70-110)
[2023-04-28 20:23] LABS: Glucose,Whole Blood 136 mg/dL (70-110)
[2023-04-28 22:04] LABS: Urine Alcohol Negative (Negative); Urine Barbiturate Negative (Negative); Urine Cocaine Negative (Negative); Urine Methadone Negative (Negative); Urine Opiates Negative (Negative); Urine Phencyclidine Negative (Negative)
[2023-04-29] MEDS: HEPARIN SODIUM,PORCINE 5,000 UNIT/ML 1 ML VIAL SQ SCH ×4 (01:02→23:54)
[2023-04-29 04:50] LABS: Basophils % (A) 0 %; Eosinophils # (A) 0.1 k/uL (0-0.7); Eosinophils % (A) 0 %; HCT 34.2 % (39.0-53.0); Lymphocytes # (A) 9.9 k/uL (1.0-4.8); Lymphocytes % (A) 66 %; MCH 34.2 pg (25.0-35.0); MCV 100.7 fL (80.0-100.0); Macrocytosis Slight; Mean Platelet Volume 7.4; Monocytes # (A) 0.6 k/uL (0-1.0); Monocytes % (A) 4 %; Neutrophils % (A) 26 %; Platelet Count 180 k/uL (150-450); RBC 3.39 m/uL (4.30-5.90); RDW 14.1 % (11.5-15.5); WBC 15.1 k/uL (3.8-10.6)
[2023-04-29 05:07] LABS: African American GFR (CKD) >90 (>60 ml/min/1.73 sqM); Anion Gap 9 mmol/L; Blood Urea Nitrogen 5 mg/dL (9-20); C Reactive Protein 3.9 mg/dL (<1.0); Calcium 7.8 mg/dL (8.4-10.2); Carbon Dioxide 21 mmol/L (22-30); Chloride 102 mmol/L (98-107); Glucose 96 mg/dL (74-99); Magnesium 1.6 mg/dL (1.6-2.3); Non-African American GFR(CKD) 87 (>60 ml/min/1.73 sqM); Phosphorus 2.1 mg/dL (2.5-4.5); Potassium 3.9 mmol/L (3.5-5.1); Sodium 132 mmol/L (137-145)
[2023-04-29 06:02] LABS: HGB 11.6 gm/dL (13.0-17.5)
[2023-04-29] MEDS: SODIUM CHLORIDE 0.9% 1,000 ML IV SCH ×4 (06:05→23:55)
[2023-04-29] MEDS: PANTOPRAZOLE 40 MG/10 ML VIAL IV SCH (08:22)
[2023-04-29] MEDS: THIAMINE 100 MG TAB PO SCH (08:23)
[2023-04-29 08:32] LABS: Glucose,Whole Blood 86 mg/dL (70-110)
[2023-04-29 11:43] LABS: Glucose,Whole Blood 103 mg/dL (70-110)
--- NOTE | 2023-04-29 15:12 | P.GSCN ---
History of Present Illness Consult date: 04/29/23 History of present illness: CHIEF COMPLAINT: Nausea and vomiting HISTORY OF PRESENT ILLNESS: This is a 77-year-old male who presented to the hospital with complaints of nausea, vomiting and generalized weakness. Reports poor oral intake and upset stomach. This morning patient seen and examined. He has no abdominal pain. He has been having bowel movements and flatus. Denies any nausea or vomiting. Reports he is hungry and wants to eat. Computed tomography scan limited distention of the colon. Fluid distention of the stomach. Hepatic cyst and correlate for nonseptic urinary bladder cystitis. Patient is on antibiotics per medicine service. No prior abdominal surgical history reported. Patient does have history of daily alcohol use and marijuana use. PAST MEDICAL HISTORY: See list. PAST SURGICAL HISTORY: See list. MEDICATIONS: See list. ALLERGIES: See list. SOCIAL HISTORY: No illicit drug use. REVIEW OF SYSTEMS: CONSTITUTIONAL: Denies fever or chills. HEENT: Denies blurred vision, vision changes, or eye pain. Denies hemoptysis ENDOCRINE: Denies heat or cold intolerance. CARDIOVASCULAR: Denies chest pain or pressure. RESPIRATORY: No shortness of breath. GASTROINTESTINAL: Please refer to HPI NEURO: Denies history of seizures. PSYCH: No depression or suicidal ideation HEMATOLOGIC: Denies bleeding disorders. LYMPHATIC: The patient denies any lumps and bumps around the neck. GENITOURINARY: Denies any blood in urine or increased urinary frequency. MUSCULOSKELETAL: Denies myalgias. Denies joint swelling. Denies decreased range of motion beyond patients baseline. SKIN: Denies pruitis. Denies rash. PHYSICAL EXAM: VITAL SIGNS: Reviewed GENERAL: Well-developed in no acute distress. HEENT: No sclera icterus. Extraocular movements grossly intact. Moist buccal mucosa. Head is atraumatic, normocephalic. Hears conversational speech. No nasal drainage. NECK: Supple without lymphadenopathy. CHEST: Non-labored respirations and equal bilateral excursions. CARDIOVASCULAR: Palpable 2+ radial pulses. ABDOMEN: Soft. Nondistended. Nontender MUSCULOSKELETAL: No clubbing or cyanosis. NEUROLOGIC: No focal or lateralizing signs. Cranial nerves II through XII grossly intact. PSYCH: Appropriate affect. Alert and oriented to person, place and time. SKIN: Well perfused. Good skin turgor. LABORATORY DATA: WBC 16.8 down to 15.1 Hgb 11.6 platelets 180 Sodium is 132 potassium 3.9 creatinine 0.82 Lactic acid 4.4 down to 1.3 Urine drug screen positive for cannabinoids Alcohol level negative IMAGING: Computed tomography scan as stated above ASSESSMENT: 1. Possible ileus. Patient tolerating clear liquids. He is having bowel movements. Resolved 2. Daily alcohol use 3. Marijuana use 4. Possible UTI 5. Dehydration PLAN: -Advance diet to regular -Continue to monitor -Encouraged patient to increase activity Physician Splitting Machine Operator note has been reviewed by physician. Signing provider agrees with the documented findings, assessment, and plan of care. Past Medical History Past Medical History: Osteoarthritis (OA), Pneumonia History of Any Multi-Drug Resistant Organisms: None Reported Past Surgical History: Orthopedic Surgery, Tonsillectomy Additional Past Surgical History / Comment(s): lt knee sx for torn ligaments Past Anesthesia/Blood Transfusion Reactions: No Reported Reaction Smoking Status: Former smoker - Past Family History Mother Family Medical History: CVA/TIA Father History Unknown: Yes Medications and Allergies Home Medications Medication Instructions Recorded Confirmed Type No Known Home Medications 12/10/22 04/28/23 History Allergies Allergy/AdvReac Type Severity Reaction Status Date / Time No Known Allergies Allergy Verified 04/28/23 09:26 Surgical - Exam Vital Signs Temp Pulse Resp BP Pulse Ox 98.1 F 115 H 18 129/94 100 04/28/23 07:31 04/28/23 07:31 04/28/23 07:31 04/28/23 07:31 04/28/23 07:31 Results - Labs 04/29/23 04:31 04/29/23 04:31 Abnormal Lab Results - Last 24 Hours (Table) 04/28/23 04/28/23 04/29/23 Range/Units 14:55 20:20 04:31 WBC (3.8-10.6) k/uL RBC (4.30-5.90) m/uL Hgb (13.0-17.5) gm/dL Hct (39.0-53.0) % MCV (80.0-100.0) fL Lymphocytes # (1.0-4.8) k/uL Sodium (137-145) mmol/L Carbon Dioxide (22-30) mmol/L BUN (9-20) mg/dL POC Glucose (mg/dL) 136 H (70-110) mg/dL Calcium (8.4-10.2) mg/dL Phosphorus (2.5-4.5) mg/dL C-Reactive Protein (<1.0) mg/dL Procalcitonin 0.17 H (0.02-0.09) ng/mL U Cannabinoids Screen Positive A (Negative) 04/29/23 04/29/23 Range/Units 04:31 04:31 WBC 15.1 H (3.8-10.6) k/uL RBC 3.39 L (4.30-5.90) m/uL Hgb 11.6 L D (13.0-17.5) gm/dL Hct 34.2 L (39.0-53.0) % MCV 100.7 H (80.0-100.0) fL Lymphocytes # 9.9 H (1.0-4.8) k/uL Sodium 132 L (137-145) mmol/L Carbon Dioxide 21 L (22-30) mmol/L BUN 5 L (9-20) mg/dL POC Glucose (mg/dL) (70-110) mg/dL Calcium 7.8 L (8.4-10.2) mg/dL Phosphorus 2.1 L (2.5-4.5) mg/dL C-Reactive Protein 3.9 H (<1.0) mg/dL Procalcitonin (0.02-0.09) ng/mL U Cannabinoids Screen (Negative) Diabetes panel 04/29/23 Range/Units 04:31 Sodium 132 L (137-145) mmol/L Potassium 3.9 (3.5-5.1) mmol/L Chloride 102 (98-107) mmol/L Carbon Dioxide 21 L (22-30) mmol/L BUN 5 L (9-20) mg/dL Creatinine 0.82 (0.66-1.25) mg/dL Glucose 96 (74-99) mg/dL Calcium 7.8 L (8.4-10.2) mg/dL Calcium panel 04/29/23 Range/Units 04:31 Calcium 7.8 L (8.4-10.2) mg/dL Phosphorus 2.1 L (2.5-4.5) mg/dL Pituitary panel 04/29/23 Range/Units 04:31 Sodium 132 L (137-145) mmol/L Potassium 3.9 (3.5-5.1) mmol/L Chloride 102 (98-107) mmol/L Carbon Dioxide 21 L (22-30) mmol/L BUN 5 L (9-20) mg/dL Creatinine 0.82 (0.66-1.25) mg/dL Glucose 96 (74-99) mg/dL Calcium 7.8 L (8.4-10.2) mg/dL Adrenal panel 04/29/23 Range/Units 04:31 Sodium 132 L (137-145) mmol/L Potassium 3.9 (3.5-5.1) mmol/L Chloride 102 (98-107) mmol/L Carbon Dioxide 21 L (22-30) mmol/L BUN 5 L (9-20) mg/dL Creatinine 0.82 (0.66-1.25) mg/dL Glucose 96 (74-99) mg/dL Calcium 7.8 L (8.4-10.2) mg/dL
[2023-04-29 16:45] LABS: Glucose,Whole Blood 127 mg/dL (70-110)
[2023-04-29 20:07] LABS: Glucose,Whole Blood 145 mg/dL (70-110)
[2023-04-30 06:09] LABS: Glucose,Whole Blood 94 mg/dL (70-110)
[2023-04-30] MEDS: SODIUM CHLORIDE 0.9% 1,000 ML IV SCH ×2 (07:50→15:54)
[2023-04-30] MEDS: HEPARIN SODIUM,PORCINE 5,000 UNIT/ML 1 ML VIAL SQ SCH ×3 (07:50→23:21)
[2023-04-30] MEDS: PANTOPRAZOLE 40 MG/10 ML VIAL IV SCH (07:50)
[2023-04-30] MEDS: THIAMINE 100 MG TAB PO SCH (07:50)
--- NOTE | 2023-04-30 11:54 | P.PN ---
Progress Note - Text Progress Note Date: 04/30/23 Patient denies any significant abdominal pain. He's had multiple bowel movements. On exam vital signs are stable. Abdomen soft. Resolving ileus. Patient continue with his diet.
[2023-04-30 12:35] LABS: Glucose,Whole Blood 95 mg/dL (70-110)
[2023-04-30 13:06] LABS: Basophils % (A) 0 %; Eosinophils # (A) 0.1 k/uL (0-0.7); Eosinophils % (A) 0 %; HCT 37.7 % (39.0-53.0); HGB 12.8 gm/dL (13.0-17.5); Lymphocytes # (A) 11.4 k/uL (1.0-4.8); Lymphocytes % (A) 75 %; MCH 34.2 pg (25.0-35.0); MCV 100.5 fL (80.0-100.0); Macrocytosis Slight; Monocytes # (A) 0.4 k/uL (0-1.0); Monocytes % (A) 3 %; Neutrophils # (A) 2.7 k/uL (1.3-7.7); Neutrophils % (A) 18 %; Platelet Count 192 k/uL (150-450); RBC 3.75 m/uL (4.30-5.90); RDW 14.1 % (11.5-15.5); WBC 15.2 k/uL (3.8-10.6)
[2023-04-30 13:19] LABS: African American GFR (CKD) >90 (>60 ml/min/1.73 sqM); Anion Gap 9 mmol/L; Blood Urea Nitrogen 3 mg/dL (9-20); Calcium 8.9 mg/dL (8.4-10.2); Carbon Dioxide 24 mmol/L (22-30); Chloride 101 mmol/L (98-107); Glucose 117 mg/dL (74-99); Non-African American GFR(CKD) 88 (>60 ml/min/1.73 sqM); Sodium 134 mmol/L (137-145)
[2023-04-30 16:48] LABS: Glucose,Whole Blood 125 mg/dL (70-110)
--- NOTE | 2023-04-30 17:09 | P.PN ---
Subjective Progress Note Date: 04/29/23 77-year-old gentleman with past medical history significant for alcohol use, history of osteoarthritis, not taking any medications at home presented to the emergency department with complaints of abdominal pain and generalized weakness. Patient says he woke up this morning feeling weak all over patient states he had multiple episodes of vomiting, no blood was noted. Patient said he was not able to keep anything down he started to feel weak and decided to come to the emergency Patient does endorse history of alcohol use and his last drink was yesterday. Patient complained of one episode of loose stool. Workup in ER included basic metabolic panel which showed hyponatremia sodium 134 blood glucose of 40 lactic to 4.4 AST of 43, ALT 16 troponin 0.012. Lipase is negative Urinalysis shows wbc, nitrite and leukocyte esterase negative CT abdomen and pelvis showed distention of colon, distention of stomach as well as suspicion for bladder cystitis Patient resuscitated with IV fluid and admitted to medical floor for further management and to monitor for patient for eyelids versus partial bowel o bstruction Objective - Vital Signs Vital signs: Vital Signs Temp 98.8 F 04/29/23 11:54 Pulse 75 04/29/23 11:54 Resp 18 04/29/23 11:54 BP 146/76 04/29/23 11:54 Pulse Ox 99 04/29/23 11:54 FiO2 Intake & Output 04/28/23 04/29/23 04/29/23 18:59 06:59 18:59 Intake Total 1710 1378 Output Total 250 500 Balance 1460 878 Weight 61.235 kg Intake: IV 1560 10 Invasive Line 1 5 Invasive Line 2 5 Sodium Chloride 0.9% 1, 1560 000 ml @ 130 mls/hr IV . Q7H42M [facility] Rx#:[id number] Intake, IV Titration 1250 Amount Sodium Chloride 0.9% 1, 1200 000 ml @ 130 mls/hr IV . Q7H42M [facility] Rx#:[id number] cefTRIAXone 1 gm In 50 Sodium Chloride 0.9% 50 ml @ 100 mls/hr IVPB Q24HR [facility] Rx#:[id number] Oral 150 118 Output: Urine 250 500 Other: Voiding Method Toilet Toilet # Voids 1 1 - Exam GENERAL: The patient is alert and oriented x3, not in any acute distress. Well developed, well nourished. HEENT: Pupils are round and equally reacting to light. EOMI. CARDIOVASCULAR: S1 and S2 present. No murmurs, rubs, or gallops. PULMONARY: Chest is clear to auscultation, no wheezing or crackles. ABDOMEN: Soft, distended, nontender on palpation MUSCULOSKELETAL: No joint swelling or deformity. EXTREMITIES: No cyanosis, clubbing, or pedal edema. NEUROLOGICAL: Gross neurological examination did not reveal any focal deficits. SKIN: No rashes. - Labs CBC & Chem 7: 04/30/23 12:39 04/30/23 12:39 Labs: Abnormal Lab Results - Last 24 Hours (Table) 04/28/23 04/28/23 04/29/23 Range/Units 14:55 20:20 04:31 WBC (3.8-10.6) k/uL RBC (4.30-5.90) m/uL Hgb (13.0-17.5) gm/dL Hct (39.0-53.0) % MCV (80.0-100.0) fL Lymphocytes # (1.0-4.8) k/uL Sodium (137-145) mmol/L Carbon Dioxide (22-30) mmol/L BUN (9-20) mg/dL POC Glucose (mg/dL) 136 H (70-110) mg/dL Calcium (8.4-10.2) mg/dL Phosphorus (2.5-4.5) mg/dL C-Reactive Protein (<1.0) mg/dL Procalcitonin 0.17 H (0.02-0.09) ng/mL U Cannabinoids Screen Positive A (Negative) 04/29/23 04/29/23 Range/Units 04:31 04:31 WBC 15.1 H (3.8-10.6) k/uL RBC 3.39 L (4.30-5.90) m/uL Hgb 11.6 L D (13.0-17.5) gm/dL Hct 34.2 L (39.0-53.0) % MCV 100.7 H (80.0-100.0) fL Lymphocytes # 9.9 H (1.0-4.8) k/uL Sodium 132 L (137-145) mmol/L Carbon Dioxide 21 L (22-30) mmol/L BUN 5 L (9-20) mg/dL POC Glucose (mg/dL) (70-110) mg/dL Calcium 7.8 L (8.4-10.2) mg/dL Phosphorus 2.1 L (2.5-4.5) mg/dL C-Reactive Protein 3.9 H (<1.0) mg/dL Procalcitonin (0.02-0.09) ng/mL U Cannabinoids Screen (Negative) Assessment and Plan Assessment: * Acute gastritis * Alcohol use disorder * Sepsis secondary to UTI * Recurrent nausea and vomiting with distended colon suspect ileus versus partial small bowel obstruction * Acute cystitis * In regards to gastritis recurrent nausea and vomiting patient given IV Protonix. Continue patient on IV fluids. Advance diet as tolerated. Gen. surgery consulted CT abdomen pelvis reviewed * In regards to cystitis urine cultures ordered continue patient on IV Rocephin. Blood cultures ordered as well * In regards to lactic acidosis is likely secondary to recurrent nausea vomiting and dehydration. Blood cultures ordered continue fluid resuscitation continue IV antibiotic * In regards to alcohol use, continue patient on thiamine, folic acid continue to monitor for alcohol withdrawal protocol. Ativan as needed for withdrawal * CODE STATUS is full code
--- NOTE | 2023-04-30 17:23 | P.PN ---
Subjective Progress Note Date: 04/30/23 77-year-old gentleman with past medical history significant for alcohol use, history of osteoarthritis, not taking any medications at home presented to the emergency department with complaints of abdominal pain and generalized weakness. Patient says he woke up this morning feeling weak all over patient states he had multiple episodes of vomiting, no blood was noted. Patient said he was not able to keep anything down he started to feel weak and decided to come to the emergency Patient does endorse history of alcohol use and his last drink was yesterday. Patient complained of one episode of loose stool. Workup in ER included basic metabolic panel which showed hyponatremia sodium 134 blood glucose of 40 lactic to 4.4 AST of 43, ALT 16 troponin 0.012. Lipase is negative Urinalysis shows wbc, nitrite and leukocyte esterase negative CT abdomen and pelvis showed distention of colon, distention of stomach as well as suspicion for bladder cystitis Patient resuscitated with IV fluid and admitted to medical floor for further management and to monitor for patient for ileus versus partial bowel obstruction 04/30/2023 Patient is seen and evaluated in room at bedside; currently denying any abdominal pain; discussed with nursing staff; patient reports multiple bowel movements Vital signs are reviewed and remained stable Patient is placed on a diet; general surgery on board and recommending to continue with diet and continue to monitor patient closely for resolving ileus Lab review shows a white blood count of 15.2, hemoglobin of 12.8 and platelet count of 192, sodium 134, potassium 4.0, BUN/creatinine of 3/0.8 Objective - Vital Signs Vital signs: Vital Signs Temp 98.5 F 04/30/23 08:08 Pulse 76 04/30/23 08:08 Resp 16 04/30/23 08:08 BP 155/78 04/30/23 08:08 Pulse Ox 98 04/30/23 08:08 FiO2 Intake & Output 04/29/23 04/30/23 04/30/23 18:59 06:59 18:59 Intake Total 2098 260 Output Total 500 Balance 1598 260 Intake: IV 10 20 Invasive Line 1 5 10 Invasive Line 2 5 Invasive Line 3 10 Intake, IV Titration 1250 Amount Sodium Chloride 0.9% 1, 1200 000 ml @ 130 mls/hr IV . Q7H42M [facility] Rx#:[id number] cefTRIAXone 1 gm In 50 Sodium Chloride 0.9% 50 ml @ 100 mls/hr IVPB Q24HR [facility] Rx#:[id number] Oral 838 240 Output: Urine 500 Other: Voiding Method Toilet Toilet # Voids 3 2 - Exam GENERAL: The patient is alert and oriented x3, not in any acute distress. Well developed, well nourished. HEENT: Pupils are round and equally reacting to light. EOMI. CARDIOVASCULAR: S1 and S2 present. No murmurs, rubs, or gallops. PULMONARY: Chest is clear to auscultation, no wheezing or crackles. ABDOMEN: Soft, distended, nontender on palpation MUSCULOSKELETAL: No joint swelling or deformity. EXTREMITIES: No cyanosis, clubbing, or pedal edema. NEUROLOGICAL: Gross neurological examination did not reveal any focal deficits. SKIN: No rashes. - Labs CBC & Chem 7: 04/30/23 12:39 04/30/23 12:39 Labs: Abnormal Lab Results - Last 24 Hours (Table) 04/29/23 04/29/23 Range/Units 16:29 20:00 POC Glucose (mg/dL) 127 H 145 H (70-110) mg/dL Microbiology - Last 24 Hours (Table) 04/28/23 12:45 Blood Culture - Preliminary Blood 04/28/23 12:30 Blood Culture - Preliminary Blood 04/28/23 09:45 Urine Culture - Preliminary Urine,Voided Gram Neg Bacilli Assessment and Plan Assessment: * Acute gastritis * Alcohol use disorder * Sepsis secondary to UTI * Recurrent nausea and vomiting with distended colon suspect ileus versus partial small bowel obstruction * Acute cystitis * In regards to gastritis recurrent nausea and vomiting patient given IV Protonix. Continue patient on IV fluids. Advance diet as tolerated. Gen. surgery consulted CT abdomen pelvis reviewed * In regards to cystitis urine cultures ordered continue patient on IV Rocephin. Blood cultures ordered as well * In regards to lactic acidosis is likely secondary to recurrent nausea vomiting and dehydration. Blood cultures ordered continue fluid resuscitation continue IV antibiotic * In regards to alcohol use, continue patient on thiamine, folic acid continue to monitor for alcohol withdrawal protocol. Ativan as needed for withdrawal * CODE STATUS is full code
[2023-04-30 20:14] VITALS: RESP 17; TEMP 97.8
[2023-05-01] MEDS: SODIUM CHLORIDE 0.9% 1,000 ML IV SCH ×3 (03:41→15:24)
[2023-05-01 03:42] VITALS: BP 128/72; PULSE 77
[2023-05-01] MEDS: HEPARIN SODIUM,PORCINE 5,000 UNIT/ML 1 ML VIAL SQ SCH ×2 (07:27→15:18)
[2023-05-01] MEDS: PANTOPRAZOLE 40 MG/10 ML VIAL IV SCH (07:27)
[2023-05-01] MEDS: THIAMINE 100 MG TAB PO SCH (07:28)
[2023-05-01 09:16] LABS: African American GFR (CKD) >90 (>60 ml/min/1.73 sqM); Anion Gap 7 mmol/L; Blood Urea Nitrogen 3 mg/dL (9-20); Calcium 8.6 mg/dL (8.4-10.2); Carbon Dioxide 25 mmol/L (22-30); Chloride 103 mmol/L (98-107); Glucose 85 mg/dL (74-99); Non-African American GFR(CKD) 89 (>60 ml/min/1.73 sqM); Potassium 4.3 mmol/L (3.5-5.1); Sodium 135 mmol/L (137-145)
[2023-05-01 09:26] LABS: HCT 37.6 % (39.0-53.0); HGB 12.6 gm/dL (13.0-17.5); MCH 33.9 pg (25.0-35.0); MCHC 33.6 g/dL (31.0-37.0); MCV 101.1 fL (80.0-100.0); Macrocytosis Slight; Mean Platelet Volume 8.5; Platelet Count 175 k/uL (150-450); RBC 3.72 m/uL (4.30-5.90); WBC 13.6 k/uL (3.8-10.6)
--- NOTE | 2023-05-01 09:27 | P.PN ---
Progress Note - Text Progress Note Date: 05/01/23 Patient is stable. He is tolerating a diet. On exam vital signs are stable. Abdomen soft nontender Resolving ileus patient will continue C have supportive care.
[2023-05-01 10:20] LABS: Eosinophils # (M) 0.14 k/uL (0-0.7); Lymphocytes # (M) 12.24 k/uL (1.0-4.8); Monocytes # (M) 0.41 k/uL (0-1.0); Neutrophils # (M) 0.82 k/uL (1.3-7.7); Neutrophils % (M) 6 %; Nucleated Red Blood Cells 0 /100 WBC (0-0); Total Cells Counted 100
--- NOTE | 2023-05-01 16:59 | P.DS ---
Providers Date of admission: 04/28/23 11:56 Expected date of discharge: 05/01/23 Attending physician: Hamilton Mckeon Consults: 04/28/23 12:57 Consult Physician Routine Consulting Provider: Maria Del Carmen Krishna Consult Reason/Comments: IVS, recurrent vomiting suspected partial bowel obstruction Do you want consulting provider notified?: Yes Primary care physician: Stated None Hospital Course: 77-year-old gentleman with past medical history significant for alcohol use, history of osteoarthritis, not taking any medications at home presented to the emergency department with complaints of abdominal pain and generalized weakness. Patient says he woke up this morning feeling weak all over patient states he had multiple episodes of vomiting, no blood was noted. Patient said he was not able to keep anything down he started to feel weak and decided to come to the emergency Patient does endorse history of alcohol use and his last drink was yesterday. Patient complained of one episode of loose stool. Workup in ER included basic metabolic panel which showed hyponatremia sodium 134 blood glucose of 40 lactic to 4.4 AST of 43, ALT 16 troponin 0.012. Lipase is negative Urinalysis shows wbc, nitrite and leukocyte esterase negative CT abdomen and pelvis showed distention of colon, distention of stomach as well as suspicion for bladder cystitis Patient resuscitated with IV fluid and admitted to medical floor for further management and to monitor for patient for ileus versus partial bowel obstruction * Acute gastritis * Alcohol use disorder * Sepsis secondary to UTI * Recurrent nausea and vomiting with distended colon suspect ileus versus partial small bowel obstruction * Acute cystitis * In regards to gastritis recurrent nausea and vomiting patient given IV Protonix. Continue patient on IV fluids. Advance diet as tolerated. Gen. surgery consulted CT abdomen pelvis reviewed * In regards to cystitis urine cultures ordered continue patient on IV Rocephin. Blood cultures ordered as well * In regards to lactic acidosis is likely secondary to recurrent nausea vomiting and dehydration. Blood cultures ordered continue fluid resuscitation continue IV antibiotic * In regards to alcohol use, continue patient on thiamine, folic acid continue to monitor for alcohol withdrawal protocol. Ativan as needed for withdrawa 04/30/2023 Patient is seen and evaluated in room at bedside; currently denying any abdominal pain; discussed with nursing staff; patient reports multiple bowel movements Vital signs are reviewed and remained stable Patient is placed on a diet; general surgery on board and recommending to continue with diet and continue to monitor patient closely for resolving ileus Lab review shows a white blood count of 15.2, hemoglobin of 12.8 and platelet count of 192, sodium 134, potassium 4.0, BUN/creatinine of 3/0.8 05/01/2023; patient has been advanced to a regular diet; continues to tolerate well; with a colony count of 10-49,000; we will empirically treat for 3 more days of oral antibiotic Patient is stable for discharge home Patient Condition at Discharge: Stable Plan - Discharge Summary Discharge Rx Participant: No New Discharge Prescriptions: New Cephalexin [Keflex] 500 mg PO Q8HR 1 Days #3 cap Thiamine [Vitamin B-1] 100 mg PO DAILY tab Discharge Medication List Cephalexin [Keflex] 500 mg PO Q8HR 1 Days #3 cap 05/01/23 [Rx] Thiamine [Vitamin B-1] 100 mg PO DAILY tab 05/01/23 [Rx] Follow up Appointment(s)/Referral(s): None,Stated [Primary Care Provider] - 1-2 days (Please follow up with your primary care physician. ) Patient Instructions/Handouts: Urinary Tract Infection in Men (DC) Discharge/Stand Alone Forms: AA Meetings [place] Discharge Disposition: HOME SELF-CARE
== END 2023-05-01 16:17 | disposition home or self-care (01) ==
LOC: EC 07:23 → 6NMEDSUR 11:56 → 1SOBS 15:15 → 3SCARD 04-29 06:00
PROVIDERS: ADMIT Hospitalist; ATTEND Hospitalist
DX: K29.00 Acute gastritis without bleeding (principal); F10.10 Alcohol abuse, uncomplicated; A41.9 Sepsis, unspecified organism; N30.00 Acute cystitis without hematuria; K56.7 Ileus, unspecified; E87.20 Acidosis, unspecified; R53.1 Weakness; E86.0 Dehydration; E87.1 Hypo-osmolality and hyponatremia; R11.2 Nausea with vomiting, unspecified; K63.89 Other specified diseases of intestine; F17.200 Nicotine dependence, unspecified, uncomplicated; M19.90 Unspecified osteoarthritis, unspecified site; Z87.01 Personal history of pneumonia (recurrent); Z98.890 Other specified postprocedural states; Z82.3 Family history of stroke
CPT/HCPCS: 96376 ×3; 96365; 96372 ×4; 96361; 96375; 99285; 36415; 94760; 93005; 80053; 80048 ×3; 83605; 83690; 83735 ×2; 84100; 84484; 85025 ×4; 85610; 85730; 86140; 81001; 87040; 80306; 87086; 87077; 87186; 84145 ×2; 71046; 74177; G0378 ×6; J1644 ×4; J3411; J2405; J0696 ×4; C9113 ×4; Q9967

== ENCOUNTER 2023-09-20 14:25 | Emergency (ER) | payer MEDICARE ==
--- NOTE | 2023-09-20 14:36 | ED ---
General Adult HPI - General Stated complaint: AMS Time Seen by Provider: 09/20/23 14:31 Source: patient, EMS, RN notes reviewed Mode of arrival: EMS Limitations: altered mental status, physical limitation - History of Present Illness Initial comments: Patient is a pleasant 77-year-old male presenting to the emergency department by EMS. Patient is nonverbal and provides no history. Patient was seen walking and fell. EMS noticed right-sided weakness. Unclear if patient has history of this. No family is present. Patient is unable to provide history. - Related Data Home Medications Medication Instructions Recorded Confirmed No Known Home Medications 09/20/23 09/20/23 Allergies Allergy/AdvReac Type Severity Reaction Status Date / Time No Known Allergies Allergy Verified 09/20/23 15:46 Review of Systems ROS Statement: Those systems with pertinent positive or pertinent negative responses have been documented in the HPI. ROS Other: All systems not noted in ROS Statement are negative. Limitations: ROS unobtainable due to patients medical condition Past Medical History Past Medical History: Osteoarthritis (OA), Pneumonia History of Any Multi-Drug Resistant Organisms: None Reported Past Surgical History: Orthopedic Surgery, Tonsillectomy Additional Past Surgical History / Comment(s): lt knee sx for torn ligaments Past Anesthesia/Blood Transfusion Reactions: No Reported Reaction Smoking Status: Former smoker - Past Family History Mother Family Medical History: CVA/TIA Father History Unknown: Yes General Exam Limitations: altered mental status, physical limitation General appearance: alert Head exam: Present: other (Abrasions and soft tissue swelling right frontal temporal region) Eye exam: Present: normal appearance, PERRL, other (Limited views to the right) Neck exam: Absent: tenderness Respiratory exam: Present: normal lung sounds bilaterally Cardiovascular Exam: Present: regular rate, normal rhythm GI/Abdominal exam: Present: soft. Absent: tenderness Extremities exam: Present: normal inspection Neurological exam: Present: alert, altered Expanded Neurological exam: Present: protecting the airway Cranial nerves: EOM's Intact: Abnormal Right (Limited movement to the right), Facial Palsy with Forehead Movement: Abnormal Right Motor strength exam: RUE: 2/1, LUE: 5, RLE: 2/1, LLE: 5 Eye Response: (4) open spontaneously Motor Response: (4) withdraws to pain Verbal Response: incomprehensible sounds Skin exam: Present: abrasion Course Vital Signs 09/20/23 09/20/23 09/20/23 14:27 14:56 15:13 Temperature 97.5 F L Pulse Rate 105 H 92 90 Respiratory 18 18 18 Rate Blood Pressure 171/117 153/108 160/101 O2 Sat by Pulse 98 98 98 Oximetry Fraction of Inspired Oxygen (FIO2) 09/20/23 09/20/23 09/20/23 15:32 15:48 15:53 Temperature Pulse Rate 102 H 126 H Respiratory 18 18 Rate Blood Pressure 156/96 147/107 O2 Sat by Pulse 100 Oximetry Fraction of 100 Inspired Oxygen (FIO2) 09/20/23 09/20/23 16:16 16:17 Temperature Pulse Rate Respiratory Rate Blood Pressure 153/98 O2 Sat by Pulse Oximetry Fraction of 40 Inspired Oxygen (FIO2) EKG Findings - EKG Results: EKG: interpreted by ERMD, sinus rhythm, normal axis, normal QRS, normal ST/T EKG shows: tachycardia Procedures - Intubation Sedative: Propofol Paralytic: Succinylcholine Laryngoscope: Josephine Size: 3 ET Tube Size: 7.5 Tube Placement Confirmation: visualized tube passing through cords Patient Tolerated Procedure: well Intubation Complications: none Medical Decision Making - Medical Decision Making NIH is 22 Was pt. sent in by a medical professional or institution (REJI Flores, CRICKET COACH, urgent care, hospital, or detention...) When possible be specific @ -No Did you speak to anyone other than the patient for history (EMS, parent, family, police, friend...)? What history was obtained from this source @ -EMS helps provide history as patient is a poor historian Did you review nursing and triage notes (agree or disagree)? Why? @ -I reviewed and agree with nursing and triage notes Were old charts reviewed (outside hosp., previous admission, EMS record, old EKG, old radiological studies, urgent care reports/EKG's, detention records)? Report findings @ -Prior charts were reviewed for past medical history Differential Diagnosis (chest pain, altered mental status, abdominal pain women, abdominal pain men, vaginal bleeding, weakness, fever, dyspnea, syncope, headache, dizziness, GI bleed, back pain, seizure, CVA, palpatations, mental health, musculoskeletal)? @ -Differential Altered Mental Status: Hypoglycemia, DKA, hypercapnia, ETOH, overdose, CO poisoning, trauma, myxedema coma, HTN encephalopathy, infection, encephalitis, psychosis, intercranial hemorrhage, hepatic encephalopathy, meningitis, CVA, this is not meant to be an all-inclusive list EKG interpreted by me (3pts min.). @ -As above X-rays interpreted by me (1pt min.). @ -Chest x-ray showed borderline mediastinum. Rotated. CT interpreted by me (1pt min.). @ -CT of the brain shows left parenchymal hemorrhage e U/S interpreted by me (1pt. min.). @ -None done What testing was considered but not performed or refused? (CT, X-rays, U/S, labs)? Why? @ -None What meds were considered but not given or refused? Why? @ -None Did you discuss the management of the patient with other professionals (professionals i.e. , PA, CRICKET COACH, lab, RT, psych nurse, social science research assistant, plastics fabrication supervisor, t eacher, network security officer, case specialist)? Give summary @ -Case discussed with Nadeem with Dr. Causey who will accept transfer to [facility]. Case also discussed with Dr. Tobar Was smoking cessation discussed for >3mins.? @ -No Was critical care preformed (if so, how long)? @ -33 minutes critical care time Were there social determinants of health that impacted care today? How? (Homelessness, low income, unemployed, alcoholism, drug addiction, transportation, low edu. Level, literacy, decrease access to med. care, assisted, rehab)? @ -No Was there de-escalation of care discussed even if they declined (Discuss DNR or withdrawal of care, Hospice)? DNR status @ -No What co-morbidities impacted this encounter? (DM, HTN, Smoking, COPD, CAD, Cancer, CVA, ARF, Chemo, Hep., AIDS, mental health diagnosis, sleep apnea, morbid obesity)? @ -None Was patient admitted / discharged? Hospital course, mention meds given and route, prescriptions, significant lab abnormalities, going to OR and other pertinent info. @ -Patient reevaluated and unchanged. Patient will be transferred for hemorrhagic stroke care. Patient will go to [facility] Undiagnosed new problem with uncertain prognosis? @ -No Drug Therapy requiring intensive monitoring for toxicity (Heparin, Nitro, Insulin, Cardizem)? @ -No Were any procedures done? @ -intubation Diagnosis/symptom? @ -Intracranial hemorrhage Acute, or Chronic, or Acute on Chronic? @ -Acute t Uncomplicated (without systemic symptoms) or Complicated (systemic symptoms)? @ -Default Side effects of treatment? @ -No Exacerbation, Progression, or Severe Exacerbation? @ -No Poses a threat to life or bodily function? How? (Chest pain, USA, CA, pneumonia, PE, COPD, DKA, ARF, appy, cholecystitis, CVA, Diverticulitis, Homicidal, Suicidal, threat to staff... and all critical care pts) @ -Large potential threat to life and bodily function off large intracranial hemorrhage Repeat x-ray interpreted by myself shows more appropriate size of mediastinum. Endotracheal tube is towards the right mainstem. This is withdrawn 1 cm. - Lab Data Result diagrams: 09/20/23 14:45 09/20/23 14:45 Lab Results 09/20/23 09/20/23 09/20/23 Range/Units 14:39 14:45 14:45 WBC 25.5 H (3.8-10.6) k/uL RBC 4.02 L (4.30-5.90) m/uL Hgb 13.5 (13.0-17.5) gm/dL Hct 39.7 (39.0-53.0) % MCV 98.9 (80.0-100.0) fL MCH 33.6 (25.0-35.0) pg MCHC 34.0 (31.0-37.0) g/dL RDW 14.6 (11.5-15.5) % Plt Count 174 (150-450) k/uL MPV 7.3 PT 10.9 (10.0-12.5) sec INR 1.0 (<1.2) APTT 22.2 (22.0-30.0) sec Sodium (137-145) mmol/L Potassium (3.5-5.1) mmol/L Chloride (98-107) mmol/L Carbon Dioxide (22-30) mmol/L Anion Gap mmol/L BUN (9-20) mg/dL Creatinine (0.66-1.25) mg/dL Est GFR (CKD-EPI)AfAm (>60 ml/min/1.73 sqM) Est GFR (CKD-EPI)NonAf (>60 ml/min/1.73 sqM) Glucose (74-99) mg/dL POC Glucose (mg/dL) 102 (70-110) mg/dL POC Glu Dry Pan Feeder ID Criss Vidales Calcium (8.4-10.2) mg/dL Total Bilirubin (0.2-1.3) mg/dL AST (17-59) U/L ALT (4-49) U/L Alkaline Phosphatase (38-126) U/L Creatine Kinase (55-170) U/L Total Protein (6.3-8.2) g/dL Albumin (3.5-5.0) g/dL Serum Alcohol mg/dL 09/20/23 Range/Units 14:45 WBC (3.8-10.6) k/uL RBC (4.30-5.90) m/uL Hgb (13.0-17.5) gm/dL Hct (39.0-53.0) % MCV (80.0-100.0) fL MCH (25.0-35.0) pg MCHC (31.0-37.0) g/dL RDW (11.5-15.5) % Plt Count (150-450) k/uL MPV PT (10.0-12.5) sec INR (<1.2) APTT (22.0-30.0) sec Sodium 135 L (137-145) mmol/L Potassium 3.9 (3.5-5.1) mmol/L Chloride 103 (98-107) mmol/L Carbon Dioxide 16 L (22-30) mmol/L Anion Gap 16 mmol/L BUN 6 L (9-20) mg/dL Creatinine 0.88 (0.66-1.25) mg/dL Est GFR (CKD-EPI)AfAm >90 (>60 ml/min/1.73 sqM) Est GFR (CKD-EPI)NonAf 84 (>60 ml/min/1.73 sqM) Glucose 108 H (74-99) mg/dL POC Glucose (mg/dL) (70-110) mg/dL POC Glu Dry Pan Feeder ID Calcium 9.2 (8.4-10.2) mg/dL Total Bilirubin 0.7 (0.2-1.3) mg/dL AST 46 (17-59) U/L ALT 22 (4-49) U/L Alkaline Phosphatase 138 H (38-126) U/L Creatine Kinase 82 (55-170) U/L Total Protein 8.7 H (6.3-8.2) g/dL Albumin 4.5 (3.5-5.0) g/dL Serum Alcohol 59 mg/dL Critical Care Time Critical Care Time: Yes Total Critical Care Time: 33 Disposition Clinical Impression: Intracranial hemorrhage Disposition: OTHER INSTITUTION NOT DEFINED Condition: Critical Is patient prescribed a controlled substance at d/c from ED?: No Referrals: None,Stated [Primary Care Provider] - 1-2 days Time of Disposition: 15:31 - Out of Hospital Transfer - Req. Specs Out of Hospital Transfer - Requested Specifics: Other Emergency Center
[2023-09-20 14:40] LABS: Glucose,Whole Blood 102 mg/dL (70-110)
[2023-09-20 15:03] VITALS: RESP 18; TEMP 97.5
[2023-09-20 15:04] LABS: Partial Thromboplastin Time 22.2 sec (22.0-30.0); Prothrombin Time 10.9 sec (10.0-12.5)
--- NOTE | 2023-09-20 15:04 | CT ---
EXAMINATION TYPE: CT brain wo con CT DLP: 1099.6 mGycm, Automated exposure control for dose reduction was used. DATE OF EXAM: 09/20/2023 2:52 PM COMPARISON: None. CLINICAL INDICATION:Male, 77 years old with history of cva, Altered mental status. TECHNIQUE: Brain: Axial CT images of the brain were obtained with coronal and sagittal reformats created and rev iewed. Contrast used: None. Oral contrast used: None. FINDINGS: Brain: Extra-axial spaces: Ovoid density along the dura extra-axial of the left parietal region measuring 32 x 16 x 37 mm Ventricular system: Within normal limits Cerebral parenchyma: Acute/subacute intraparenchymal hemorrhage in the left dolan radiata measuring 37 x 21 x 27 mm. Ovoid density along the dura extra-axial of the left parietal region measuring 32 x 16 x 37 mm The rojas-white junction is well differentiated. Cerebellum: Unremarkable. Mass effect: No evidence of midline shift. Intracranial vasculature: unremarkable Soft tissues: Normal. Calvarium/osseous structures: No depressed skull fracture. Paranasal sinuses and mastoid air cells: Mild scattered paranasal sinus disease. Visualized orbits: Orbital contents are intact. IMPRESSION: 1. Acute intraparenchymal hemorrhage of the left frontal lobe dolan radiata. 2. Ovoid density along the dura extra-axial of the left parietal region measuring 32 x 16 x 37 mm on a nonemergent basis. Finding could represent a meningioma. Findings communicated to ER sandblast operator on 09/20/2023 3:[address] Varghese Allan.
[2023-09-20 15:05] LABS: HCT 39.7 % (39.0-53.0); HGB 13.5 gm/dL (13.0-17.5); MCH 33.6 pg (25.0-35.0); MCV 98.9 fL (80.0-100.0); Mean Platelet Volume 7.3; Platelet Count 174 k/uL (150-450); RBC 4.02 m/uL (4.30-5.90); RDW 14.6 % (11.5-15.5); WBC 25.5 k/uL (3.8-10.6)
[2023-09-20 15:06] LABS: ALT 22 U/L (4-49); AST 46 U/L (17-59); African American GFR (CKD) >90 (>60 ml/min/1.73 sqM); Albumin 4.5 g/dL (3.5-5.0); Alcohol 59 mg/dL; Alkaline Phosphatase 138 U/L (38-126); Anion Gap 16 mmol/L; Blood Urea Nitrogen 6 mg/dL (9-20); Calcium 9.2 mg/dL (8.4-10.2); Carbon Dioxide 16 mmol/L (22-30); Chloride 103 mmol/L (98-107); Creatine Kinase 82 U/L (55-170); Glucose 108 mg/dL (74-99); Non-African American GFR(CKD) 84 (>60 ml/min/1.73 sqM); Potassium 3.9 mmol/L (3.5-5.1); Sodium 135 mmol/L (137-145); Total Bilirubin 0.7 mg/dL (0.2-1.3); Total Protein 8.7 g/dL (6.3-8.2)
--- NOTE | 2023-09-20 15:28 | CT ---
EXAMINATION TYPE: CT angio head neck CT DLP: 454.4 mGycm, Automated exposure control for dose reduction was used. DATE OF EXAM: 09/20/2023 3:22 PM COMPARISON: Same day CT head.. CLINICAL INDICATION:Male, 77 years old with history of eval c spine Neuro deficit, acute, stroke susp ected; PHH, Altered mental status. TECHNIQUE: Axially acquired helical CT angiogram of the head and neck was obtained with contrast. Axi al images are supplemented with 3D reconstructions and MIP images which were post-processed at an in dependent workstation. NASCET criteria used. Contrast used:65ml mL of Isovue 370 with IV Contrast, Oral contrast used: None. FINDINGS: CTA HEAD: The ventricles, sulci, and cisterns are unremarkable. There is homogenous enhancement with a ovoid le akbar in the posterior left lateral skull now 78 Hounsfield units precontrast a 38 Hounsfield units. P ersistent intraparenchymal hemorrhage in the left coronary radiata. The visualized portions of the internal carotid arteries, middle cerebral arteries, anterior cerebral arteries, and posterior cerebral arteries are patent. The basilar and vertebral arteries are patent. CTA NECK: Right Carotid System: The common carotid and external carotid arteries are patent. There is less than 25% stenosis at the c arotid bifurcation secondary to calcified/noncalcified plaque. The rest of the internal carotid arter y is patent. Left Carotid System: The common carotid artery and external carotid artery are patent. The carotid bifurcation demonstrate s no evidence of hemodynamically significant stenosis. The remaining portions of the internal carotid artery demonstrate normal size without significant narrowing. Vertebral arteries are patent without evidence hemodynamically significant stenosis. There is a three-vessel aortic arch. The origins of the great vessels are patent. No evidence of hemo dynamically significant stenosis. Upper thorax: IMPRESSION: 1. No evidence of dissection of the cervical internal carotid arteries or vertebral arteries or any e vidence of significant stenosis at the carotid bifurcations. 2. No evidence of intracranial high-grade stenosis or intracranial aneurysm. 3. Persistent intraparenchymal hemorrhage within the left dolan radiata. 4. Ovoid lesion along the left posterior dura homogenously enhances and favored represent a meningiom a.
[2023-09-20] MEDS ORDERED: LORazepam 2 MG/ML INJ IV PRN (15:31)
[2023-09-20] MEDS: niCARdipine 20 MG in SODIUM CHLORIDE 0.9% 192 ML IV SCH (15:36)
--- NOTE | 2023-09-20 15:49 | XR ---
EXAMINATION TYPE: XR chest 1V portable DATE OF EXAM: 09/20/2023 COMPARISON: 04/28/2023 HISTORY: Altered mental status TECHNIQUE: Single frontal view of the chest is obtained. FINDINGS: Exam limited by reduced inspiration. There is ectasia of the aorta. Arthropathy of the AC joint. There is no focal air space opacity, pleural effusion, or pneumothorax seen. The cardiac silh ouette size is within normal limits. The osseous structures are intact. IMPRESSION: No acute process.
[2023-09-20] MEDS: LORazepam 2 MG/ML INJ IV PRN (15:50)
[2023-09-20] MEDS: SUCCINYLCHOLINE CHLORIDE 200 MG/10 ML VIAL IV STA (16:00)
[2023-09-20] MEDS: LIDOCAINE 2% INJ 20 MG/ML (20 ML MDV) IV ONE (16:14)
--- NOTE | 2023-09-20 16:32 | XR ---
EXAMINATION TYPE: XR chest 1V portable DATE OF EXAM: 09/20/2023 4:26 PM CLINICAL INDICATION:Male, 77 years old with history of Tube placement; [facility] COMPARISON: Chest radiographs from 09/20/2023. TECHNIQUE: XR chest 1V portable Frontal view of the chest. FINDINGS: Lungs/Pleura: There is no evidence of pleural effusion, focal consolidation, or pneumothorax. Pulmonary vascularity: Unremarkable. Heart/mediastinum: Cardiomediastinal silhouette is unremarkable. Musculoskeletal: No acute osseous pathology. Other findings: None Lines/Tubes: Endotracheal tube with distal tip 1.0 cm above the sukumar. Nasogastric tube with its distal tip and side-port projecting under the diaphragm. IMPRESSION: 1. Endotracheal tube in close proximity to the sukumar consider retraction 1-2 cm for optimal placeme nt. 2. Nasogastric tube in appropriate position.
[2023-09-20 16:35] LABS: Lymphocytes # (M) 22.95 k/uL (1.0-4.8); Neutrophils # (M) 2.04 k/uL (1.3-7.7); Neutrophils % (M) 8 %
[2023-09-20 16:36] LABS: Monocytes # (M) 0.51 k/uL (0-1.0); Nucleated Red Blood Cells 0 /100 WBC (0-0); Total Cells Counted 100
[2023-09-20 16:55] VITALS: BP 147/90; PULSE 120
[2023-09-20] MEDS ORDERED: CHLORHEXIDINE GLUCONATE 15 ML CUP MUCOUS MEM SCH (21:00)
== END 2023-09-20 17:06 | disposition other institution (70) ==
LOC: EC 14:25
DX: I62.9 Nontraumatic intracranial hemorrhage, unspecified (principal); R00.0 Tachycardia, unspecified; Z87.891 Personal history of nicotine dependence
CPT/HCPCS: 31500; 99291; 96365; 96375; 36415; 94002; 93005; 80053; 82550; 85025; 85610; 85730; 80320; 71045; 70496; 70450; 70498; J2001; J0330; J2060; J2704; Q9967

== ENCOUNTER → 2023-10-19 | Outpatient (CLI) | payer MEDICARE ==
--- NOTE | 2023-10-19 13:04 | FL ---
EXAMINATION TYPE: FL barium swallow w video DATE OF EXAM: 10/19/2023 CLINICAL HISTORY: 78-year-old male [id number] Dysphagia. Patient with history of prior intracranial hemorr cassandra and indwelling PEG tube. Reassessment for any aspiration. TECHNIQUE: Deglutition study is performed utilizing thin liquid barium, nectar thick liquid barium, barium thick pudding, and barium crushed cracker. Total fluoroscopy time 1 minute 57 seconds. Total images: None. Real-time fluoroscopy support was provided to speech pathology. Total DAP: 20 mGycm2. COMPARISON: None. FINDINGS: Swallow initiation was delayed with recurrent episodes of premature bolus loss into the vallecula and piriform sinuses. There is one episode of aspiration of thin liquids from a cup that occurred before the swallow. Suspected to be on the basis of poor oral control on the first swallow. A cough was taty cited. Subsequent ingestion of thin liquid via a straw directed towards the left side of the mouth (t he stronger side) show no aspiration. An episode of transient penetration is noted with nectar liquid s and no additional aspiration with any other tested consistency. IMPRESSION: 1. A single episode of aspiration of thin liquid from a cup with cough reflex intact. Suspected to be due to poor oral control on the first swallow. Subsequent swallows of thin liquid via a straw direct ly towards the left side of the mouth show no aspiration. 2. Premature bolus loss into the vallecula and perform sinuses due to delayed swallow. Please refer to speech therapist notes for further details if necessary.
== END | disposition home or self-care (01) ==
LOC: RADFLMAIN 11:43
PROVIDERS: ATTEND Family Medicine
DX: K63.89 Other specified diseases of intestine (principal); R13.19 Other dysphagia; R05.9 Cough, unspecified; Z86.73 Personal history of transient ischemic attack (TIA), and cerebral infarction without residual deficits
CPT/HCPCS: 74230

== ENCOUNTER → 2023-11-15 | Outpatient (CLI) | payer MEDICARE ==
--- NOTE | 2023-11-15 08:58 | CT ---
EXAMINATION TYPE: CT brain wo con DATE OF EXAM: 11/15/2023 COMPARISON: 09/20/2023 INDICATION: NONTRAUMATIC CEREBRAL HEMORRHAGE DLP: 1036 mGycm, Automated exposure control for dose reduction was used. CONTRAST: None CT of the brain is performed utilizing 3 mm thick sections through the posterior fossa and 3 mm thick sections through the remaining calvarium. Study is performed within 24 hours of arrival to the hosp ital. No abnormal hyperdensity is present to suggest an acute intracranial hemorrhage. Appears be normal ma turation of the cerebral hemorrhage. No significant adjacent mass effect is evident rate no new hemor rhages are evident. No mass lesion is evident. No acute infarcts are evident. Ventricles and sulci are appropriate for the patient age. Mucosal thickening is present in the bilateral maxillary sinuses. Air-fluid levels within the left ma xillary sinus. Opacifications through scattered ethmoid air cells. Air-fluid levels are within the fr ontal sinuses. Minimal fluid and mucosal thickening is within the sphenoid sinuses. Clinical correlat ion for acute sinusitis is recommended. Mastoid air cells are clear. IMPRESSION: 1. Normal maturation left cerebral hemorrhage. No mass effect or new changes. 2. Clinical correlation recommended for pansinusitis
== END | disposition home or self-care (01) ==
LOC: RADCTMAIN 08:21
PROVIDERS: ATTEND Neurological Surgery
DX: I61.8 Other nontraumatic intracerebral hemorrhage (principal); C71.3 Malignant neoplasm of parietal lobe
CPT/HCPCS: 70450

== ENCOUNTER 2024-01-16 10:20 | Inpatient (IN) | payer MEDICARE ==
--- NOTE | 2024-01-16 10:31 | ED ---
Altered Mental Status HPI - General Chief Complaint: Altered Mental Status Stated Complaint: Weakness Time Seen by Provider: 01/16/24 10:29 Source: patient, RN notes reviewed, old records reviewed Mode of arrival: wheelchair Limitations: no limitations - History of Present Illness Initial Comments: This is a 78-year-old male presenting as an altered mental status for shortness of breath diaphoresis and confusion, patient went to his normal outpatient oncology evaluation was sent to the ER for evaluation secondary to significant change in mental stat6 MD Complaint: altered mental status, confusion, weakness -: days(s) Severity: moderate Consistency of Symptoms: waxing and waning Associated Symptoms: weakness Treatments Prior to Arrival: IV fluid - Related Data Home Medications Medication Instructions Recorded Confirmed Baclofen [Lyvispah] 10 mg PO TID PRN 01/16/24 01/16/24 Famotidine [Pepcid] 20 mg PO BID 01/16/24 01/16/24 Osmolite 1.5 65 ml PEG/G-TUBE DIRECTED 01/16/24 01/16/24 Sertraline [Zoloft] 25 mg PO DAILY 01/16/24 01/16/24 Z-Guard 1 applic TOPICAL Q12H 01/16/24 01/16/24 Previous Rx's Medication Instructions Recorded Acetaminophen Tab [Tylenol] 650 mg PO Q6HR PRN tab 01/25/24 Heparin Sodium,Porcine (1 ml) 5,000 unit SQ Q12HR each 01/25/24 [Heparin Sodium] Allergies Allergy/AdvReac Type Severity Reaction Status Date / Time No Known Allergies Allergy Verified 01/16/24 16:10 Review of Systems ROS Statement: Those systems with pertinent positive or pertinent negative responses have been documented in the HPI. ROS Other: All systems not noted in ROS Statement are negative. Past Medical History Past Medical History: Osteoarthritis (OA), Pneumonia History of Any Multi-Drug Resistant Organisms: None Reported Past Surgical History: Orthopedic Surgery, Tonsillectomy Additional Past Surgical History / Comment(s): lt knee sx for torn ligaments Past Anesthesia/Blood Transfusion Reactions: No Reported Reaction Past Psychological History: No Psychological Hx Reported Smoking Status: Former smoker - Past Family History Mother Family Medical History: CVA/TIA Father History Unknown: Yes General Exam Limitations: no limitations General appearance: alert, in no apparent distress Head exam: Present: atraumatic, normocephalic, normal inspection Eye exam: Present: normal appearance, PERRL, EOMI. Absent: scleral icterus, conjunctival injection, periorbital swelling ENT exam: Present: normal exam, mucous membranes moist Neck exam: Present: normal inspection. Absent: tenderness, meningismus, lymphadenopathy Respiratory exam: Present: normal lung sounds bilaterally. Absent: respiratory distress, wheezes, rales, rhonchi, stridor Cardiovascular Exam: Present: regular rate, normal rhythm, normal heart sounds. Absent: systolic murmur, diastolic murmur, rubs, gallop, clicks GI/Abdominal exam: Present: soft, normal bowel sounds. Absent: distended, tenderness, guarding, rebound, rigid Extremities exam: Present: normal inspection, full ROM, normal capillary refill. Absent: tenderness, pedal edema, joint swelling, calf tenderness Back exam: Present: normal inspection Neurological exam: Present: alert, oriented X3, CN II-XII intact Psychiatric exam: Present: normal affect, normal mood Skin exam: Present: warm, dry, intact, normal color. Absent: rash Course Vital Signs 01/16/24 01/16/24 01/16/24 10:24 11:28 12:00 Temperature 97 F L Pulse Rate 69 71 76 Respiratory 18 16 17 Rate Blood Pressure 86/53 109/61 120/70 O2 Sat by Pulse 100 98 97 Oximetry 01/16/24 01/16/24 01/16/24 13:00 14:00 15:00 Temperature Pulse Rate 73 74 78 Respiratory 16 17 16 Rate Blood Pressure 113/65 115/63 108/62 O2 Sat by Pulse 95 97 95 Oximetry 01/16/24 01/17/24 01/17/24 21:00 00:34 03:23 Temperature 97.8 F Pulse Rate 75 67 69 Respiratory 20 16 16 Rate Blood Pressure 120/64 108/65 113/61 O2 Sat by Pulse 100 99 96 Oximetry 01/17/24 01/17/24 01/17/24 06:42 10:40 14:00 Temperature 97.5 F L Pulse Rate 60 68 69 Respiratory 16 16 16 Rate Blood Pressure 107/67 128/68 118/70 O2 Sat by Pulse 99 99 95 Oximetry 01/17/24 17:44 Temperature 98 F Pulse Rate 74 Respiratory 20 Rate Blood Pressure 130/84 O2 Sat by Pulse 97 Oximetry - Reevaluation(s) Reevaluation #1: 01/16/24 13:58 Medical record is reviewed Reevaluation #2: 01/16/24 13:58 Patient symptoms are unchanged here in the ER Reevaluation #3: 01/16/24 13:58 Patient informed of results and questions answered Reevaluation #4: Was pt. sent in by a medical professional or institution (, [facility], CHAIN SALES REPRESENTATIVE, urgent care, hospital, or longterm...) When possible be specific @ -no Did you speak to anyone other than the patient for history (EMS, parent, family, police, friend...)? What history was obtained from this source @ -no Did you review nursing and triage notes (agree or disagree)? Why? @ -agree Are old charts reviewed (outside hosp., previous admission, EMS record, old EKG, old radiological studies, urgent care reports/EKG's, longterm records)? Report findings @ -yes Differential Diagnosis (chest pain, altered mental status, abdominal pain women, abdominal pain men, vaginal bleeding, weakness, fever, dyspnea, syncope, headache, dizziness, GI bleed, back pain, seizure, CVA, palpatations, mental health, musculoskeletal)? @ -prior EKG interpreted by me (3pts min.). @ -yes X-rays interpreted by me (1pt min.). @ -yes negative for acute disease CT interpreted by me (1pt min.). @ -Yes negative for acute disease U/S interpreted by me (1pt. min.). @ -no What testing was considered but not performed or refused? (CT, X-rays, U/S, labs)? Why? @ -none What meds were considered but not given or refused? Why? @ -none Did you discuss the management of the patient with other professionals (professionals i.e. , REJI, CHAIN SALES REPRESENTATIVE, lab, RT, psych nurse, social media developer, assistant operator, teacher, technology officer, supportive employment case manager)? Give summary @ -no Was smoking cessation discussed for >3mins.? @ -no Were there social determinants of health that impacted care today? How? (Homelessness, low income, unemployed, alcoholism, drug addiction, transportation, low edu. Level, literacy, decrease access to med. care, intermediate, rehab)? @ -none Was there de-escalation of care discussed even if they declined (Discuss DNR or withdrawal of care, Hospice)? DNR status @ -no What co-morbidities impacted this encounter? (DM, HTN, Smoking, COPD, CAD, Cancer, CVA, ARF, Chemo, Hep., AIDS, mental health diagnosis, sleep apnea, morbid obesity)? @ -none Was patient admitted / discharged? Hospital course, mention meds given and route, prescriptions, significant lab abnormalities, going to OR and other pertinent info. @ - 78 male to the ER for evaluation patient [facility] for evaluation regards to altered mental status with diaphoresis found to be significantly hyponatremic. Will admit for continued monitoring monitoring of lab testing and rehydration Admitted Was critical care preformed (if so, how long)? @ -yes31 Undiagnosed new problem with uncertain prognosis? @ -no Drug Therapy requiring intensive monitoring for toxicity (Heparin, Nitro, Insulin, Cardizem)? @ -no Were any procedures done? @ -no Diagnosis/symptom? @ -Altered mental status, hyponatremia Acute, or Chronic, or Acute on Chronic? @ -Acute Uncomplicated (without systemic symptoms) or Complicated (systemic symptoms)? @ -Complicated Side effects of treatment? @ -no Exacerbation, Progression, or Severe Exacerbation? @ -exacerbation Poses a threat to life or bodily function? How? (Chest pain, USA, PA, pneumonia, PE, COPD, DKA, ARF, appy, cholecystitis, CVA, Diverticulitis, Homicidal, Suicidal, threat to staff... and all critical care pts) @ -yes extremes of age Reevaluation #5: Differential Altered Mental Status: Hypoglycemia, DKA, hypercapnia, ETOH, overdose, CO poisoning, trauma, myxedema coma, HTN encephalopathy, infection, encephalitis, psychosis, intercranial hemorrhage, hepatic encephalopathy, meningitis, CVA, this is not meant to be an all-inclusive list Medical Decision Making - Medical Decision Making 78 male to the ER for evaluation patient [facility] for evaluation regards to altered mental status with diaphoresis found to be significantly hyponatremic. Will admit for continued monitoring monitoring of lab testing and rehydration - Lab Data Result diagrams: 01/24/24 06:20 01/25/24 07:35 Lab Results 01/16/24 01/16/24 01/16/24 Range/Units 10:54 10:54 10:54 WBC 21.9 H (3.8-10.6) k/uL RBC 3.47 L (4.30-5.90) m/uL Hgb 10.8 L (13.0-17.5) gm/dL Hct 32.6 L (39.0-53.0) % MCV 93.9 (80.0-100.0) fL MCH 31.2 (25.0-35.0) pg MCHC 33.2 (31.0-37.0) g/dL RDW 13.9 (11.5-15.5) % Plt Count 288 (150-450) k/uL MPV 7.3 Neutrophils % Not Reportable Neutrophils % (Manual) 20 % Band Neuts % (Manual) 1 % Lymphocytes % Not Reportable Lymphocytes % (Manual) 75 % Monocytes % Not Reportable Monocytes % (Manual) 4 % Eosinophils % Not Reportable Basophils % Not Reportable Neutrophils # Not Reportable Neutrophils # (Manual) 4.50 (1.3-7.7) k/uL Lymphocytes # Not Reportable Lymphocytes # (Manual) 16.43 H (1.0-4.8) k/uL Monocytes # Not Reportable Monocytes # (Manual) 0.88 (0-1.0) k/uL Eosinophils # Not Reportable Basophils # Not Reportable Nucleated RBCs 0 (0-0) /100 WBC Manual Slide Review Performed RBC Morphology Normal PT 10.2 (10.0-12.5) sec INR 0.9 (<1.2) APTT 23.3 (22.0-30.0) sec Sodium (137-145) mmol/L Potassium (3.5-5.1) mmol/L Chloride (98-107) mmol/L Carbon Dioxide (22-30) mmol/L Anion Gap mmol/L BUN (9-20) mg/dL Creatinine (0.66-1.25) mg/dL Est GFR (CKD-EPI)AfAm (>60 ml/min/1.73 sqM) Est GFR (CKD-EPI)NonAf (>60 ml/min/1.73 sqM) Glucose (74-99) mg/dL Lactic Ac Sepsis Rflx Plasma Lactic Acid Justin (0.7-2.0) mmol/L Calcium (8.4-10.2) mg/dL Phosphorus (2.5-4.5) mg/dL Magnesium (1.6-2.3) mg/dL Total Bilirubin (0.2-1.3) mg/dL AST (17-59) U/L ALT (4-49) U/L Alkaline Phosphatase (38-126) U/L Troponin I (0.000-0.034) ng/mL Total Protein (6.3-8.2) g/dL Albumin (3.5-5.0) g/dL TSH (0.465-4.680) mIU/L Urine Color Light Yellow Urine Appearance Cloudy (Clear) Urine pH 7.5 (5.0-8.0) Ur Specific Milton 1.014 (1.001-1.035) Urine Protein Negative (Negative) Urine Glucose (UA) Negative (Negative) Urine Ketones Negative (Negative) Urine Blood Negative (Negative) Urine Nitrite Negative (Negative) Urine Bilirubin Negative (Negative) Urine Urobilinogen <2.0 (<2.0) mg/dL Ur Leukocyte Esterase Negative (Negative) Urine RBC 3 (0-5) /hpf Hyaline Casts 4 H (0-2) /lpf Urine Yeast (Budding) Many H (None) /hpf 01/16/24 01/16/24 01/16/24 Range/Units 10:54 10:54 10:54 WBC (3.8-10.6) k/uL RBC (4.30-5.90) m/uL Hgb (13.0-17.5) gm/dL Hct (39.0-53.0) % MCV (80.0-100.0) fL MCH (25.0-35.0) pg MCHC (31.0-37.0) g/dL RDW (11.5-15.5) % Plt Count (150-450) k/uL MPV Neutrophils % Neutrophils % (Manual) % Band Neuts % (Manual) % Lymphocytes % Lymphocytes % (Manual) % Monocytes % Monocytes % (Manual) % Eosinophils % Basophils % Neutrophils # Neutrophils # (Manual) (1.3-7.7) k/uL Lymphocytes # Lymphocytes # (Manual) (1.0-4.8) k/uL Monocytes # Monocytes # (Manual) (0-1.0) k/uL Eosinophils # Basophils # Nucleated RBCs (0-0) /100 WBC Manual Slide Review RBC Morphology PT (10.0-12.5) sec INR (<1.2) APTT (22.0-30.0) sec Sodium 122 L (137-145) mmol/L Potassium 5.9 H (3.5-5.1) mmol/L Chloride 89 L (98-107) mmol/L Carbon Dioxide 23 (22-30) mmol/L Anion Gap 10 mmol/L BUN 24 H (9-20) mg/dL Creatinine 0.74 (0.66-1.25) mg/dL Est GFR (CKD-EPI)AfAm >90 (>60 ml/min/1.73 sqM) Est GFR (CKD-EPI)NonAf 90 (>60 ml/min/1.73 sqM) Glucose 139 H (74-99) mg/dL Lactic Ac Sepsis Rflx Plasma Lactic Acid Justin 2.8 H* (0.7-2.0) mmol/L Calcium 9.1 (8.4-10.2) mg/dL Phosphorus 4.1 (2.5-4.5) mg/dL Magnesium 1.6 (1.6-2.3) mg/dL Total Bilirubin 1.1 (0.2-1.3) mg/dL AST 61 H (17-59) U/L ALT 82 H (4-49) U/L Alkaline Phosphatase 181 H (38-126) U/L Troponin I 0.021 (0.000-0.034) ng/mL Total Protein 8.8 H (6.3-8.2) g/dL Albumin 4.5 (3.5-5.0) g/dL TSH 8.820 H (0.465-4.680) mIU/L Urine Color Urine Appearance (Clear) Urine pH (5.0-8.0) Ur Specific Milton (1.001-1.035) Urine Protein (Negative) Urine Glucose (UA) (Negative) Urine Ketones (Negative) Urine Blood (Negative) Urine Nitrite (Negative) Urine Bilirubin (Negative) Urine Urobilinogen (<2.0) mg/dL Ur Leukocyte Esterase (Negative) Urine RBC (0-5) /hpf Hyaline Casts (0-2) /lpf Urine Yeast (Budding) (None) /hpf 01/16/24 Range/Units 11:52 WBC (3.8-10.6) k/uL RBC (4.30-5.90) m/uL Hgb (13.0-17.5) gm/dL Hct (39.0-53.0) % MCV (80.0-100.0) fL MCH (25.0-35.0) pg MCHC (31.0-37.0) g/dL RDW (11.5-15.5) % Plt Count (150-450) k/uL MPV Neutrophils % Neutrophils % (Manual) % Band Neuts % (Manual) % Lymphocytes % Lymphocytes % (Manual) % Monocytes % Monocytes % (Manual) % Eosinophils % Basophils % Neutrophils # Neutrophils # (Manual) (1.3-7.7) k/uL Lymphocytes # Lymphocytes # (Manual) (1.0-4.8) k/uL Monocytes # Monocytes # (Manual) (0-1.0) k/uL Eosinophils # Basophils # Nucleated RBCs (0-0) /100 WBC Manual Slide Review RBC Morphology PT (10.0-12.5) sec INR (<1.2) APTT (22.0-30.0) sec Sodium (137-145) mmol/L Potassium (3.5-5.1) mmol/L Chloride (98-107) mmol/L Carbon Dioxide (22-30) mmol/L Anion Gap mmol/L BUN (9-20) mg/dL Creatinine (0.66-1.25) mg/dL Est GFR (CKD-EPI)AfAm (>60 ml/min/1.73 sqM) Est GFR (CKD-EPI)NonAf (>60 ml/min/1.73 sqM) Glucose (74-99) mg/dL Lactic Ac Sepsis Rflx Y Plasma Lactic Acid Justin (0.7-2.0) mmol/L Calcium (8.4-10.2) mg/dL Phosphorus (2.5-4.5) mg/dL Magnesium (1.6-2.3) mg/dL Total Bilirubin (0.2-1.3) mg/dL AST (17-59) U/L ALT (4-49) U/L Alkaline Phosphatase (38-126) U/L Troponin I (0.000-0.034) ng/mL Total Protein (6.3-8.2) g/dL Albumin (3.5-5.0) g/dL TSH (0.465-4.680) mIU/L Urine Color Urine Appearance (Clear) Urine pH (5.0-8.0) Ur Specific Milton (1.001-1.035) Urine Protein (Negative) Urine Glucose (UA) (Negative) Urine Ketones (Negative) Urine Blood (Negative) Urine Nitrite (Negative) Urine Bilirubin (Negative) Urine Urobilinogen (<2.0) mg/dL Ur Leukocyte Esterase (Negative) Urine RBC (0-5) /hpf Hyaline Casts (0-2) /lpf Urine Yeast (Budding) (None) /hpf - EKG Data -: EKG Interpreted by Me - Radiology Data Radiology results: report reviewed (CT brain chest x-ray is negative for acute disease), image reviewed Critical Care Time Critical Care Time: Yes Total Critical Care Time: 31 Disposition Clinical Impression: Altered mental status, Leukocytosis, Nausea & vomiting, Hyponatremia Disposition: ADMITTED IP TO THIS [facility] Condition: Fair Is patient prescribed a controlled substance at d/c from ED?: No Time of Disposition: 13:50
[2024-01-16] MEDS: SODIUM CHLORIDE 0.9% 1,000 ML IV STA ×2 (11:14→15:03)
[2024-01-16 11:28] LABS: INR 0.9 (<1.2); Partial Thromboplastin Time 23.3 sec (22.0-30.0); Prothrombin Time 10.2 sec (10.0-12.5)
[2024-01-16 11:33] LABS: ALT 82 U/L (4-49); African American GFR (CKD) >90 (>60 ml/min/1.73 sqM); Albumin 4.5 g/dL (3.5-5.0); Anion Gap 10 mmol/L; Blood Urea Nitrogen 24 mg/dL (9-20); Calcium 9.1 mg/dL (8.4-10.2); Carbon Dioxide 23 mmol/L (22-30); Chloride 89 mmol/L (98-107); Glucose 139 mg/dL (74-99); Non-African American GFR(CKD) 90 (>60 ml/min/1.73 sqM); Phosphorus 4.1 mg/dL (2.5-4.5); Sodium 122 mmol/L (137-145); Total Bilirubin 1.1 mg/dL (0.2-1.3); Total Protein 8.8 g/dL (6.3-8.2)
[2024-01-16 11:35] LABS: HCT 32.6 % (39.0-53.0); HGB 10.8 gm/dL (13.0-17.5); MCH 31.2 pg (25.0-35.0); MCHC 33.2 g/dL (31.0-37.0); MCV 93.9 fL (80.0-100.0); Mean Platelet Volume 7.3; Platelet Count 288 k/uL (150-450); RBC 3.47 m/uL (4.30-5.90); RDW 13.9 % (11.5-15.5); WBC 21.9 k/uL (3.8-10.6)
[2024-01-16 11:40] LABS: AST 61 U/L (17-59); Alkaline Phosphatase 181 U/L (38-126); Magnesium 1.6 mg/dL (1.6-2.3); Potassium 5.9 mmol/L (3.5-5.1)
[2024-01-16 11:52] LABS: Appearance,Urine Cloudy (Clear); Bilirubin,Urine Negative (Negative); Blood,Urine Negative (Negative); Budding Yeast,Urine Many /hpf; Color,Urine Light Yellow; Glucose,Urine (UA) Negative (Negative); Hyaline Casts,Urine 4 /lpf (0-2); Ketones,Urine Negative (Negative); Leukocyte Esterase,Urine Negative (Negative); Nitrite,Urine Negative (Negative); PH, Urine 7.5 (5.0-8.0); Protein,Urine Negative (Negative); RBC,Urine 3 /hpf (0-5); Specific Gravity,Urine 1.014 (1.001-1.035); Urobilinogen,Urine <2.0 mg/dL (<2.0)
[2024-01-16 12:23] LABS: Band Neutrophils % 1 %; Lymphocytes # (M) 16.43 k/uL (1.0-4.8); Monocytes # (M) 0.88 k/uL (0-1.0); Neutrophils % (M) 20 %; Nucleated Red Blood Cells 0 /100 WBC (0-0); Total Cells Counted 100
[2024-01-16 12:24] LABS: RBC Morphology Normal
--- NOTE | 2024-01-16 12:39 | CT ---
EXAMINATION TYPE: CT brain wo con CT DLP: 1138.4 mGycm, Automated exposure control for dose reduction was used. DATE OF EXAM: 01/16/2024 12:00 PM COMPARISON: CT brain 11/15/2023. CLINICAL INDICATION:Male, 78 years old with history of altered mental status., AMS. Recovering fro m acute intra-axial hemorrhage on CT scan 09/20/2023. TECHNIQUE: Brain: Axial CT images of the brain were obtained with coronal and sagittal reformats created and rev iewed. Contrast used: None. Oral contrast used: None. FINDINGS: Brain: Extra-axial spaces: Left parietal isodense lesion attached to the dura measures 4 cm similar to prior scan from 09/20/2023 Ventricular system: Within normal limits Cerebral parenchyma: No acute intraparenchymal hemorrhage or mass effect. 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 Left basal ganglia deep w patricia matter low attenuation of the previous site of hemorrhage is still visible. Cerebellum: Unremarkable. Mass effect: No evidence of midline shift. Intracranial vasculature: unremarkable Soft tissues: Normal. Calvarium/osseous structures: No depressed skull fracture. Paranasal sinuses and mastoid air cells: Mild scattered paranasal sinus disease. Visualized orbits: Orbital contents are intact. IMPRESSION: No acute intracranial process. The left basal ganglia hematoma continues to evolve without evidence of recurrence or new hemorrhage. No new or persistent hyperdense acute hemorrhage
[2024-01-16] MEDS ORDERED: NALOXONE 0.4 MG/ML 1 ML VIAL IV PRN (13:55)
[2024-01-16] MEDS ORDERED: ONDANSETRON 4 MG/2 ML VIAL IVP PRN (13:55)
--- NOTE | 2024-01-16 15:39 | XR ---
EXAMINATION TYPE: XR chest 1V portable DATE OF EXAM: 01/16/2024 2:45 PM CLINICAL INDICATION:Male, 78 years old with history of weak; COMPARISON: Chest radiographs from 09/20/2023. TECHNIQUE: XR chest 1V portable Frontal view of the chest. FINDINGS: Lungs/Pleura: There is no evidence of pleural effusion, focal consolidation, or pneumothorax. Pulmonary vascularity: Unremarkable. Heart/mediastinum: Cardiomediastinal silhouette is unremarkable. Musculoskeletal: No acute osseous pathology. IMPRESSION: Low lung volumes with a generalized hazy appearance which could represent atelectasis versus pulmonar y edema correlate with serum BNP.
[2024-01-16] MEDS: SODIUM CHLORIDE 0.9% 1,000 ML IV SCH (20:13)
[2024-01-16] MEDS: HYDROmorphone 0.5 MG/0.5 ML SYRINGE IVP PRN (23:41)
--- NOTE | 2024-01-17 08:20 | P.HPIM ---
History of Present Illness This is a pleasant 78 years old -Citizen Of [place] male with past medical problem of osteoarthritis and pneumonia. And has chronic leukocytosis and non-Hodgkin lymphoma and he follows up with Dr. Duong. Patient somewhat is poor historian and information were obtained from the patient, records and staff. Looks like patient was sent from his cancer center for being diaphoretic with altered mental status This morning patient is awake and alert and follows some commands, he looks mildly confused. He has muffled talking with lack of denture. His right arm is flexed. He has PEG tube in place. Patient is afebrile, blood pressure is stable He has leukocytosis 21.9 which looks his baseline over the last 4 to 5 months since September 2023 baseline is 25-31 Hemoglobin 10.8. Sodium 122, potassium slightly elevated 5.9 but looks hemolyzed sample Liver enzymes mildly elevated. Urinalysis is negative Lactic acid 2.8 came back to reference range and 2.[address] of the brain is negative Chest x-ray is low volume showing atelectasis versus pulmonary edema Patient received 2 L of normal saline in the emergency room and continued on 75 mL/h He was admitted with hematology oncology team consult Review of Systems Review of systems CONSTITUTIONAL: No fever, no malaise, no fatigue. HEENT: No recent visual problems or hearing problems. Denied any sore throat. CARDIOVASCULAR: No orthopnea, PND, no palpitations, no syncope. PULMONARY: No shortness of breath, no cough, no hemoptysis. GASTROINTESTINAL: No diarrhea, no nausea, no vomiting, no abdominal pain. Normoactive bowel sounds. NEUROLOGICAL: No headaches, no weakness, no numbness. HEMATOLOGICAL: Denies any bleeding or petechiae. GENITOURINARY: Denies any burning micturition, frequency, or urgency. MUSCULOSKELETAL/RHEUMATOLOGICAL: Denies any joint pain, swelling, or any muscle pain. ENDOCRINE: Denies any polyuria or polydipsia. Past Medical History Past Medical History: Osteoarthritis (OA), Pneumonia History of Any Multi-Drug Resistant Organisms: None Reported Past Surgical History: Orthopedic Surgery, Tonsillectomy Additional Past Surgical History / Comment(s): lt knee sx for torn ligaments Past Anesthesia/Blood Transfusion Reactions: No Reported Reaction Past Psychological History: No Psychological Hx Reported Smoking Status: Former smoker - Past Family History Mother Family Medical History: CVA/TIA Father History Unknown: Yes Medications and Allergies Home Medications Medication Instructions Recorded Confirmed Type Baclofen [Lyvispah] 10 mg PO TID PRN 01/16/24 01/16/24 History Famotidine [Pepcid] 20 mg PO BID 01/16/24 01/16/24 History Osmolite 1.5 65 ml PEG/G-TUBE DIRECTED 01/16/24 01/16/24 History Sertraline [Zoloft] 25 mg PO DAILY 01/16/24 01/16/24 History Z-Guard 1 applic TOPICAL Q12H 01/16/24 01/16/24 History amLODIPine [Norvasc] 5 mg PO DAILY 01/16/24 01/16/24 History lisinopriL [Zestril] 10 mg PO DAILY 01/16/24 01/16/24 History Allergies Allergy/AdvReac Type Severity Reaction Status Date / Time No Known Allergies Allergy Verified 01/16/24 16:10 Physical Exam Vitals: Vital Signs Temp Pulse Resp BP Pulse Ox 01/17/24 06:42 60 16 107/67 99 01/17/24 03:23 69 16 113/61 96 01/17/24 00:34 97.8 F 67 16 108/65 99 01/16/24 21:00 75 20 120/64 100 01/16/24 15:00 78 16 108/62 95 01/16/24 14:00 74 17 115/63 97 01/16/24 13:00 73 16 113/65 95 01/16/24 12:00 76 17 120/70 97 01/16/24 11:28 97 F L 71 16 109/61 98 01/16/24 10:24 69 18 86/53 100 -GENERAL: The patient is alert and oriented x3, not in any acute distress. Well developed, well nourished. Muffled speech which looks chronic, with lack of dentures HEENT: Pupils are round and equally reacting to light. EOMI. No scleral icterus. No conjunctival pallor. Normocephalic, atraumatic. No pharyngeal erythema. No thyromegaly. CARDIOVASCULAR: S1 and S2 present. No murmurs, rubs, or gallops. PULMONARY: Chest is clear to auscultation, no wheezing , no crackles. -ABDOMEN: Soft, nontender, nondistended, normoactive bowel sounds. No palpable organomegaly. PEG tube in place MUSCULOSKELETAL: No joint swelling or deformity. EXTREMITIES: No cyanosis, clubbing, or pedal edema. -NEUROLOGICAL: Gross neurological examination did not reveal any focal deficits. Right forearm is flexed at the elbow, looks chronic stroke. Moves both legs symmetrically and freely 5/5 strength. Meningeal signs absent. Follows co mmands SKIN: No rashes. no petechiae. Results CBC & Chem 7: 01/16/24 10:54 01/16/24 10:54 Labs: Abnormal Lab Results - Last 24 Hours (Table) 01/16/24 01/16/24 01/16/24 Range/Units 10:54 10:54 10:54 WBC 21.9 H (3.8-10.6) k/uL RBC 3.47 L (4.30-5.90) m/uL Hgb 10.8 L (13.0-17.5) gm/dL Hct 32.6 L (39.0-53.0) % Lymphocytes # (Manual) 16.43 H (1.0-4.8) k/uL Sodium 122 L (137-145) mmol/L Potassium 5.9 H (3.5-5.1) mmol/L Chloride 89 L (98-107) mmol/L BUN 24 H (9-20) mg/dL Glucose 139 H (74-99) mg/dL Plasma Lactic Acid Justin (0.7-2.0) mmol/L AST 61 H (17-59) U/L ALT 82 H (4-49) U/L Alkaline Phosphatase 181 H (38-126) U/L Total Protein 8.8 H (6.3-8.2) g/dL TSH 8.820 H (0.465-4.680) mIU/L Hyaline Casts 4 H (0-2) /lpf Urine Yeast (Budding) Many H (None) /hpf 01/16/24 Range/Units 10:54 WBC (3.8-10.6) k/uL RBC (4.30-5.90) m/uL Hgb (13.0-17.5) gm/dL Hct (39.0-53.0) % Lymphocytes # (Manual) (1.0-4.8) k/uL Sodium (137-145) mmol/L Potassium (3.5-5.1) mmol/L Chloride (98-107) mmol/L BUN (9-20) mg/dL Glucose (74-99) mg/dL Plasma Lactic Acid Justin 2.8 H* (0.7-2.0) mmol/L AST (17-59) U/L ALT (4-49) U/L Alkaline Phosphatase (38-126) U/L Total Protein (6.3-8.2) g/dL TSH (0.465-4.680) mIU/L Hyaline Casts (0-2) /lpf Urine Yeast (Budding) (None) /hpf Assessment and Plan Assessment: Altered mental status most likely metabolic encephalopathy, improving Non-Hodgkin lymphoma with chronic leukocytosis, follow-up with Dr. Duong as an outpatient Hyponatremia, most likely hypovolemic hyponatremia Mild transaminitis Mildly elevated lactic acid came back to reference range Mildly elevated TSH Dehydration Plan: Continue normal saline Monitor sodium level and electrolytes closely Check urine osmolality Recheck thyroid function test Hematology/oncology consult Check procalcitonin and proBNP. Repeat labs Labs and medication were reviewed.. Continue same treatment. Continue with symptomatic treatment. Resume home medication. Monitor labs and vitals. DVT and GI prophylaxis. Further recommendations as per clinical course of the patient DVT prophylaxis: Subcutaneous heparin GI Prophylaxis: Ppi Prognosis is guarded
[2024-01-17] MEDS: SERTRALINE 25 MG TAB PO SCH (08:35)
[2024-01-17] MEDS: HEPARIN SODIUM,PORCINE 5,000 UNIT/ML 1 ML VIAL SQ SCH (08:35)
[2024-01-17] MEDS: PANTOPRAZOLE 40 MG/10 ML VIAL IV SCH (08:36)
[2024-01-17 11:25] LABS: HGB 9.8 gm/dL (13.0-17.5); MCH 30.7 pg (25.0-35.0); MCHC 32.6 g/dL (31.0-37.0); MCV 94.1 fL (80.0-100.0); Mean Platelet Volume 7.3; Platelet Count 282 k/uL (150-450); RBC 3.18 m/uL (4.30-5.90); WBC 22.9 k/uL (3.8-10.6)
[2024-01-17 11:54] LABS: ALT 66 U/L (4-49); AST 37 U/L (17-59); African American GFR (CKD) >90 (>60 ml/min/1.73 sqM); Albumin 3.9 g/dL (3.5-5.0); Alkaline Phosphatase 192 U/L (38-126); Anion Gap 10 mmol/L; Blood Urea Nitrogen 12 mg/dL (9-20); Calcium 9.2 mg/dL (8.4-10.2); Carbon Dioxide 19 mmol/L (22-30); Chloride 96 mmol/L (98-107); Glucose 79 mg/dL (74-99); Magnesium 1.4 mg/dL (1.6-2.3); Non-African American GFR(CKD) >90 (>60 ml/min/1.73 sqM); Phosphorus 3.5 mg/dL (2.5-4.5); Potassium 4.5 mmol/L (3.5-5.1); Sodium 125 mmol/L (137-145); Total Bilirubin 0.7 mg/dL (0.2-1.3); Total Protein 7.9 g/dL (6.3-8.2)
[2024-01-17 12:01] LABS: NT-Pro-B-Type Natriuretic Pept 450 pg/mL
[2024-01-17] MEDS ORDERED: Magnesium Replacement Protocol 1 EACH MISC MISCELLANE PRN (14:22)
[2024-01-17 15:38] LABS: Protein, Total 7.4 g/dL (6.2-8.2)
[2024-01-17 15:48] LABS: Nucleated Red Blood Cells 0 /100 WBC (0-0)
[2024-01-17 15:50] LABS: Lymphocytes # (M) 14.43 k/uL (1.0-4.8); Monocytes # (M) 0.92 k/uL (0-1.0); Neutrophils # (M) 7.79 k/uL (1.3-7.7); Neutrophils % (M) 34 %; Total Cells Counted 200
--- NOTE | 2024-01-17 16:18 | P.CNNES ---
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 Some of the history is obtained from medical record. Patient is not a great historian. Patient states that he had a bleed in September 2019 for and as a result has significant weakness over the right side. He stated that his environmental health and safety manager felt that the patient was hydrated. Per the ED team they stated that the patient went to his outpatient oncologist for evaluation and was sent to the ER for evaluation of significant change in mental status. He stated that yesterday he had a headache over the left frontal and it was mild but currently is resolved. Denies any ph otophobia or phonophobia. Currently headache is resolved. Some of the workup during this hospital visit consisted of: Initial white blood cell is about 22,000. Initial sodium on presentation is 122 and the repeat is 125. TSH is 8.820. I reviewed rest of the lab workup. CT of the head is reported as no acute intracranial process. The left basal ganglia hematoma continues to evolve without evidence of recurrent or new hemorrhage. No new or persistent hyperdense acute hemorrhage. Personally re viewed the CT of the head and there is no acute or subacute ischemia. There is no bleed that appreciable. Patient does have hypodensity over the left basal ganglia but again the patient had a history of brain bleed in September 2023. Review of Systems Limited but positive and negative as per HPI. 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), Osteoarthritis (OA), Pneumonia History of Any Multi-Drug Resistant Organisms: None Reported Past Surgical History: Orthopedic Surgery, Tonsillectomy Additional Past Surgical History / Comment(s): lt knee sx for torn ligaments Past Anesthesia/Blood Transfusion Reactions: No Reported Reaction Past Psychological History: No Psychological Hx Reported Smoking Status: Former smoker Past Alcohol Use History: None Reported Past Drug Use History: None Reported - Past Family History Mother Family Medical History: CVA/TIA Father History Unknown: Yes Medications and Allergies Home Medications Medication Instructions Recorded Confirmed Type Baclofen [Lyvispah] 10 mg PO TID PRN 01/16/24 01/16/24 History Famotidine [Pepcid] 20 mg PO BID 01/16/24 01/16/24 History Osmolite 1.5 65 ml PEG/G-TUBE DIRECTED 01/16/24 01/16/24 History Sertraline [Zoloft] 25 mg PO DAILY 01/16/24 01/16/24 History Z-Guard 1 applic TOPICAL Q12H 01/16/24 01/16/24 History amLODIPine [Norvasc] 5 mg PO DAILY 01/16/24 01/16/24 History lisinopriL [Zestril] 10 mg PO DAILY 01/16/24 01/16/24 History Allergies Allergy/AdvReac Type Severity Reaction Status Date / Time No Known Allergies Allergy Verified 01/16/24 16:10 Physical Examination - Vital Signs Vital Signs: Vital Signs Temp Pulse Resp BP Pulse Ox 01/17/24 10:40 68 16 128/68 99 01/17/24 06:42 60 16 107/67 99 01/17/24 03:23 69 16 113/61 96 01/17/24 00:34 97.8 F 67 16 108/65 99 01/16/24 21:00 75 20 120/64 100 General: Lying in bed and is not in acute distress. Neuro: The patient is awake alert oriented to self he stated that the month is January and he is in [facility]. He stated the year is 2027. He is following simple commands. He is hypophonic. Somewhat slow talking. Pupils are round equal reactive to light. Visual [place] are full to confron tation. Extraocular movements intact. Patient has right lower facial droop. He has moderate to severe dysarthria. Motor is the strength and left side is 5 out of 5 for the right is patient has spasticity more in the upper than the lower and he has minimal movement in the upper but again it is limited because of the spasticity in the lower he has some antigravity. Reflexes is burst over the right Results - Laboratory Findings CBC and BMP: 01/17/24 10:27 01/17/24 10:27 Abnormal Lab Findings: Abnormal Labs 01/16/24 01/16/24 01/16/24 10:54 10:54 10:54 WBC 21.9 H RBC 3.47 L Hgb 10.8 L Hct 32.6 L Neutrophils # (Manual) Lymphocytes # (Manual) 16.43 H Sodium 122 L Potassium 5.9 H Chloride 89 L Carbon Dioxide BUN 24 H Creatinine Glucose 139 H Plasma Lactic Acid Justin Magnesium AST 61 H ALT 82 H Alkaline Phosphatase 181 H Total Protein 8.8 H Procalcitonin TSH 8.820 H Hyaline Casts 4 H Urine Yeast (Budding) Many H 01/16/24 01/17/24 01/17/24 10:54 10:27 10:27 WBC 22.9 H RBC 3.18 L Hgb 9.8 L Hct 30.0 L Neutrophils # (Manual) 7.79 H Lymphocytes # (Manual) 14.43 H Sodium 125 L Potassium Chloride 96 L Carbon Dioxide 19 L BUN Creatinine 0.46 L Glucose Plasma Lactic Acid Justin 2.8 H* Magnesium 1.4 L AST ALT 66 H Alkaline Phosphatase 192 H Total Protein Procalcitonin TSH Hyaline Casts Urine Yeast (Budding) 01/17/24 10:27 WBC RBC Hgb Hct Neutrophils # (Manual) Lymphocytes # (Manual) Sodium Potassium Chloride Carbon Dioxide BUN Creatinine Glucose Plasma Lactic Acid Justin Magnesium AST ALT Alkaline Phosphatase Total Protein Procalcitonin 0.22 H TSH Hyaline Casts Urine Yeast (Budding) Assessment and Plan Assessment: This is a 78-year-old gentleman who presented emergency department from his outpatient oncologist of confusion, respiratory distress. His sodium was 122 presentation. Altered mental status seems due to metabolic encephalopathy Hyponatremia of 122 and unsure cause. One of the possibilities is SIADH previous brain bleed but rule out other causes Abnormal thyroid History of brain bleed over the left basal ganglia and on the current CT there is no acute or subacute stroke or any bleed seen. Has residual significant right hemiparesis with right facial droop and dysarthria Plan: Oncology is on board Defer the rest of the medical management to primary and other specialist Plan discussed with the patient. Thank you for the consultation. Time with Patient: Greater than 30
[2024-01-17] MEDS: MAGNESIUM SULFATE-D5W PMX 1 GM in DEXTROSE/WATER 1 100ML.BAG IVPB SCH (18:40)
[2024-01-17] MEDS: ACETAMINOPHEN IV (For NPO) 1,000 MG in EMPTY BAG 1 BAG IVPB PRN (20:52)
--- NOTE | 2024-01-17 22:25 | P.CONS ---
History of Present Illness - Reason for Consult Consult date: 01/17/24 known pt Requesting physician: Al Miller - Chief Complaint lethargic, Hx paraproteinemia - History of Present Illness Mr. Cohen is a 78-year-old patient of Dr. Duong who initially presented to [facility] on 10/08 with intracranial hemorrhage, reported pt was walking and fell prior to admit. Transferred to [facility], was intubated, had a PEG tube placed. He suffered from right-sided weakness as well as dysarthria. Brain MRI showed intracranial hemorrhage and meningoma. During his hospital stay he was found to have lymphocytosis, SPEP showed IgM protein. Flow cytometry showed CD5,CD10 monoclonal B cells, CCNd1 negative, BCL6 and MALt1 negative, MYD88 positive, IgM was elevated 3039 mg/dl on 12/02/2023. He was seen by Dr. Duong yesterday for f/u, suspicions are that pt has Waldenstroms, recommendation was for observation. Pt was exhibiting mental status changes, lethargic, nausea, weaker. It was recommended that he be taken to ER. When seen in the ER, patient is alert and very cooperative. He denied any fevers, nausea, headaches, vision changes, difficulty swallowing, cough or shortness of breath, acute changes in bowel or bladder habits. WBCs 21.9, ALC 16.4, hemoglobin 10.8, platelets 288,000. Lactic acid was increased 2.8, sodium 122, LFTs slightly elevated. Urine was positive for some yeast. 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), Osteoarthritis (OA), Pneumonia History of Any Multi-Drug Resistant Organisms: None Reported Past Surgical History: Orthopedic Surgery, Tonsillectomy Additional Past Surgical History / Comment(s): lt knee sx for torn ligaments Past Anesthesia/Blood Transfusion Reactions: No Reported Reaction Past Psychological History: No Psychological Hx Reported Smoking Status: Former smoker Past Alcohol Use History: None Reported Past Drug Use History: None Reported - Past Family History Mother Family Medical History: CVA/TIA Father History Unknown: Yes Medications and Allergies Home Medications Medication Instructions Recorded Confirmed Type Baclofen [Lyvispah] 10 mg PO TID PRN 01/16/24 01/16/24 History Famotidine [Pepcid] 20 mg PO BID 01/16/24 01/16/24 History Osmolite 1.5 65 ml PEG/G-TUBE DIRECTED 01/16/24 01/16/24 History Sertraline [Zoloft] 25 mg PO DAILY 01/16/24 01/16/24 History Z-Guard 1 applic TOPICAL Q12H 01/16/24 01/16/24 History amLODIPine [Norvasc] 5 mg PO DAILY 01/16/24 01/16/24 History lisinopriL [Zestril] 10 mg PO DAILY 01/16/24 01/16/24 History Allergies Allergy/AdvReac Type Severity Reaction Status Date / Time No Known Allergies Allergy Verified 01/16/24 16:10 Physical Exam Vitals: Vital Signs Temp Pulse Resp BP Pulse Ox 01/17/24 06:42 60 16 107/67 99 01/17/24 03:23 69 16 113/61 96 01/17/24 00:34 97.8 F 67 16 108/65 99 01/16/24 21:00 75 20 120/64 100 01/16/24 15:00 78 16 108/62 95 01/16/24 14:00 74 17 115/63 97 01/16/24 13:00 73 16 113/65 95 01/16/24 12:00 76 17 120/70 97 01/16/24 11:28 97 F L 71 16 109/61 98 01/16/24 10:24 69 18 86/53 100 - Constitutional General appearance: average body habitus, cooperative, no acute distress - EENT Eyes: anicteric sclerae ENT: hearing grossly normal, normal oropharynx - Neck Neck: no lymphadenopathy - Respiratory Respiratory: bilateral: CTA - Cardiovascular Rhythm: regular Heart sounds: normal: S1, S2 Abnormal Heart Sounds: no systolic murmur, no diastolic murmur, no rub, no S3 Gallop, no S4 Gallop, no click, no other leg Peripheral Edema: bilateral: None - Gastrointestinal General gastrointestinal: no absent bowel sounds, no decreased bowel sounds, no distended, no hepatomegaly, no hyperactive bowel sounds, normal bowel sounds, no organomegaly, no rigid, no scaphoid, soft, no splenomegaly, no tenderness, no umbilical hernia, no ventral hernia - Integumentary Integumentary: normal - Neurologic Rt sided deficit of the extremities - Musculoskeletal RUE 1/5, RLE 4/5 Musculoskeletal: right sided weakness - Psychiatric Psychiatric: A&O x's 3, appropriate affect, intact judgment & insight Results CBC & Chem 7: 01/17/24 10:27 01/17/24 10:27 Labs: Abnormal Lab Results - Last 24 Hours (Table) 01/16/24 01/16/24 01/16/24 Range/Units 10:54 10:54 10:54 WBC 21.9 H (3.8-10.6) k/uL RBC 3.47 L (4.30-5.90) m/uL Hgb 10.8 L (13.0-17.5) gm/dL Hct 32.6 L (39.0-53.0) % Lymphocytes # (Manual) 16.43 H (1.0-4.8) k/uL Sodium 122 L (137-145) mmol/L Potassium 5.9 H (3.5-5.1) mmol/L Chloride 89 L (98-107) mmol/L BUN 24 H (9-20) mg/dL Glucose 139 H (74-99) mg/dL Plasma Lactic Acid Justin (0.7-2.0) mmol/L AST 61 H (17-59) U/L ALT 82 H (4-49) U/L Alkaline Phosphatase 181 H (38-126) U/L Total Protein 8.8 H (6.3-8.2) g/dL TSH 8.820 H (0.465-4.680) mIU/L Hyaline Casts 4 H (0-2) /lpf Urine Yeast (Budding) Many H (None) /hpf 01/16/24 Range/Units 10:54 WBC (3.8-10.6) k/uL RBC (4.30-5.90) m/uL Hgb (13.0-17.5) gm/dL Hct (39.0-53.0) % Lymphocytes # (Manual) (1.0-4.8) k/uL Sodium (137-145) mmol/L Potassium (3.5-5.1) mmol/L Chloride (98-107) mmol/L BUN (9-20) mg/dL Glucose (74-99) mg/dL Plasma Lactic Acid Justin 2.8 H* (0.7-2.0) mmol/L AST (17-59) U/L ALT (4-49) U/L Alkaline Phosphatase (38-126) U/L Total Protein (6.3-8.2) g/dL TSH (0.465-4.680) mIU/L Hyaline Casts (0-2) /lpf Urine Yeast (Budding) (None) /hpf Chest x-ray: report reviewed CT Scan - head: report reviewed Assessment and Plan (1) Altered mental status Current Visit: Yes Status: Acute Priority: High Code(s): R41.82 - ALTERED MENTAL STATUS, UNSPECIFIED SNOMED Code(s): 646518979 (2) Hyponatremia Current Visit: Yes Status: Acute Priority: High Code(s): E87.1 - HYPO- OSMOLALITY AND HYPONATREMIA SNOMED Code(s): 28678440 (3) Waldenstrom macroglobulinemia Current Visit: Yes Status: Suspected Priority: Medium Code(s): C88.0 - WALDENSTROM MACROGLOBULINEMIA SNOMED Code(s): 124689719 Plan: Altered mental status -On history and physical exam patient was alert and answered questions appropriately. He was not in any distress. -Elevated lactic acid. Hyponatremia -2/2 to recent brain hematoma. Neurology consulted Waldenstrm's macroglobulinemia -Suspect. Patient just recently saw Dr. Duong for the second time. His initial lab workup in Sep did show a paraproteinemia of 1.97 g/dL, IgM 3039, IgA and IgG both low. Patient's hemoglobin baseline has been in the 11-12 range previously. -repeat paraproteinemia work up -Anemia work up ordered -serum viscosity Doctor attests: I performed a history and physical examination of this patient, developed impression and plan of care. Discussed with dictator. I agree with dictators note, documented as a scribe
[2024-01-18 00:10] LABS: Glucose,Whole Blood 82 mg/dL (70-110)
[2024-01-18 06:13] LABS: Glucose,Whole Blood 77 mg/dL (70-110)
--- NOTE | 2024-01-18 09:39 | P.PN ---
Subjective This is a pleasant 78 years old -[place] male with past medical problem of osteoarthritis and pneumonia. And has chronic leukocytosis and non-Hodgkin lymphoma and he follows up with Dr. Duong. Patient somewhat is poor historian and information were obtained from the patient, records and staff. Looks like patient was sent from his cancer center for being diaphoretic with altered mental status This morning patient is awake and alert and follows some commands, he looks mildly confused. He has muffled talking with lack of denture. His right arm is flexed. He has PEG tube in place. Patient is afebrile, blood pressure is stable He has leukocytosis 21.9 which looks his baseline over the last 4 to 5 months since September 2023 baseline is 25-31 Hemoglobin 10.8. Sodium 122, potassium slightly elevated 5.9 but looks hemolyzed sample Liver enzymes mildly elevated. Urinalysis is negative Lactic acid 2.8 came back to reference range and 2.[address] of the brain is negative Chest x-ray is low volume showing atelectasis versus pulmonary edema Patient received 2 L of normal saline in the emergency room and continued on 75 mL/h He was admitted with hematology oncology team consult 01/18/2024 Patient is more awake and alert today, he answers questions appropriately, he has baseline muffled speech. He denies specific complaint He has PEG tube and we consulted dietitian for starting tube feeding. He was getting PEG tube at [facility] prior to send him to oncology clinic who referred him to the hospital yesterday. He remains on normal saline 75 mL/h Yesterday sodium started improving 122 up to 125 Further workup per hematology/oncology team. Possible discharge in 24 to 48 hours if he keeps improving Review of systems CONSTITUTIONAL: No fever, no malaise, no fatigue. HEENT: No recent visual problems or hearing problems. Denied any sore throat. CARDIOVASCULAR: No orthopnea, PND, no palpitations, no syncope. PULMONARY: No shortness of breath, no cough, no hemoptysis. GASTROINTESTINAL: No diarrhea, no nausea, no vomiting, no abdominal pain. Normoactive bowel sounds. NEUROLOGICAL: No headaches, no weakness, no numbness. Active Medications Generic Name Dose Route Start Last Admin Trade Name Freq PRN Reason Stop Dose Admin Heparin Sodium (Porcine) 5,000 unit 01/17/24 09:00 01/18/24 08:22 Heparin Sodium,Porcine 5,000 Unit/Ml 1 Ml Vial SQ 5,000 unit Q12HR RUPA Administration Hydromorphone HCl 0.5 mg 01/16/24 23:26 01/16/24 23:41 Hydromorphone 0.5 Mg/0.5 Ml Syringe IVP 0.5 mg Q6HR PRN Administration Pain Sodium Chloride 1,000 mls @ 75 mls/hr 01/16/24 14:00 01/18/24 05:24 Saline 0.9% IV 75 mls/hr .[id number] RUPA Administration Acetaminophen 1,000 mg/ IV 100 mls @ 400 mls/hr 01/17/24 20:47 01/17/24 20:52 Solution IVPB 01/18/24 18:01 400 mls/hr Q6HR PRN Administration Pain Miscellaneous Information 1 each 01/17/24 14:22 Magnesium Replacement Protocol 1 Each Misc MISCELLANE DAILY PRN Per Protocol Protocol Naloxone HCl 0.2 mg 01/16/24 13:55 Naloxone 0.4 Mg/Ml 1 Ml Vial IV Q2M PRN Opioid Reversal Ondansetron HCl 4 mg 01/16/24 13:55 Ondansetron 4 Mg/2 Ml Vial IVP Q8HR PRN Nausea And Vomiting Pantoprazole Sodium 40 mg 01/17/24 09:00 01/18/24 08:22 Pantoprazole 40 Mg/10 Ml Vial IV 40 mg DAILY RUPA Administration Sertraline HCl 25 mg 01/17/24 09:00 01/18/24 08:22 Sertraline 25 Mg Tab PO 25 mg DAILY RUPA Administration Objective - Vital Signs Vital signs: Vital Signs Temp 98.1 F 01/18/24 08:00 Pulse 86 01/18/24 08:00 Resp 17 01/18/24 08:00 BP 126/61 01/18/24 08:00 Pulse Ox 99 01/18/24 08:00 FiO2 Intake & Output 01/17/24 01/18/24 01/18/24 18:59 06:59 18:59 Intake Total 0 Output Total 750 700 Balance -750 -700 Weight 61.235 kg Intake: Oral 0 Output: Urine 750 700 Other: Voiding Method External Catheter External Catheter - Exam GENERAL: The patient is alert and oriented x3, not in any acute distress. Well developed, well nourished. -HEENT: Pupils are round and equally reacting to light. EOMI. No scleral icterus. No conjunctival pallor. Normocephalic, atraumatic. No pharyngeal erythema. No thyromegaly. Mildly dehydrated and dry mucous membranes CARDIOVASCULAR: S1 and S2 present. No murmurs, rubs, or gallops. PULMONARY: Chest is clear to auscultation, no wheezing , no crackles. -ABDOMEN: Soft, nontender, nondistended, normoactive bowel sounds. No palpable organomegaly. PEG tube in place MUSCULOSKELETAL: No joint swelling or deformity. EXTREMITIES: No cyanosis, clubbing, or pedal edema. NEUROLOGICAL: Gross neurological examination did not reveal any focal deficits. SKIN: No rashes. no petechiae. - Labs CBC & Chem 7: 01/17/24 10:27 01/17/24 10:27 Labs: Abnormal Lab Results - Last 24 Hours (Table) 01/17/24 01/17/24 01/17/24 Range/Units 10:27 10:27 10:27 WBC 22.9 H (3.8-10.6) k/uL RBC 3.18 L (4.30-5.90) m/uL Hgb 9.8 L (13.0-17.5) gm/dL Hct 30.0 L (39.0-53.0) % Neutrophils # (Manual) 7.79 H (1.3-7.7) k/uL Lymphocytes # (Manual) 14.43 H (1.0-4.8) k/uL Sodium 125 L (137-145) mmol/L Chloride 96 L (98-107) mmol/L Carbon Dioxide 19 L (22-30) mmol/L Creatinine 0.46 L (0.66-1.25) mg/dL Magnesium 1.4 L (1.6-2.3) mg/dL ALT 66 H (4-49) U/L Alkaline Phosphatase 192 H (38-126) U/L Procalcitonin 0.22 H (0.02-0.09) ng/mL Assessment and Plan Assessment: Altered mental status most likely metabolic encephalopathy, improving Non-Hodgkin lymphoma with chronic leukocytosis, follow-up with Dr. Duong as an outpatient Hyponatremia, most likely hypovolemic hyponatremia Mild transaminitis Mildly elevated lactic acid came back to reference range Mildly elevated TSH Dehydration Plan: Continue normal saline Monitor sodium level and electrolytes closely Dietary team consult Recheck thyroid function test Hematology/oncology consult Check procalcitonin and proBNP. Repeat labs Labs and medication were reviewed.. Continue same treatment. Continue with symptomatic treatment. Resume home medication. Monitor labs and vitals. DVT and GI prophylaxis. Further recommendations as per clinical course of the patient DVT prophylaxis: Subcutaneous heparin GI Prophylaxis: Ppi Prognosis is guarded
[2024-01-18 11:49] LABS: Glucose,Whole Blood 72 mg/dL (70-110)
[2024-01-18 12:02] LABS: Reticulocyte % 2.1 % (0.5-2.0)
--- NOTE | 2024-01-18 12:21 | CDI ---
Documentation Clarification Form Date: 01/18/2024 12:01:32 PM From: Pam Puckett RN,CCDS Phone: [phone] Admit Date: 01/16/2024 01:57:00 PM Patient Name: Chuy Cohen Visit Number: [id number] Discharge Date: ATTENTION: The Clinical Documentation Specialists (CDI) and [facility] Coding Staff appreciate your assistance in clarifying documentation. Please respond to the clarification below the line at the bottom and electronically sign. The CDI & [facility] Coding staff will review the response and follow-up if needed. Please note: Queries are made part of the Legal Health Record. If you have any questions, please contact the author of this message via ITS. Dr. 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 Based on this information and the findings below, is there an additional diagnosis that is clinically appropriate for this patient? Patient history/risk factors: Hypertension, Left basal ganglia hematoma, Spontaneous brain bleed (11/2023), Waldenstrom's Macroglobulinemia, CVA, Former smoker Clinical Indicators: 78-year-old gentleman with history of brain bleed residual right significant weakness and spasticity, hypertension presented emergency department for shortness of breath diaphoretic and confusion. VS 01/15 120/64 75 20 100% RA 01/16 Lab 01/15 Labs: WBC 21.9 NA+ 122 01/16 Neurology consult: Altered mental status seems due to metabolic encephalopathy Hyponatremia of 122 and unsure cause. One of the possibilities is SIADH previous brain bleed but rule out other causes. Treatment: Monitor I&O Daily Weight Monitor sodium level and electrolytes closely 9NS @ 75 MLs/HR 01/15-01/17 Is there an additional diagnosis that is clinically appropriate for this patient? [ ] Syndrome of inappropriate secretion of antidiuretic hormone (SIADH) [ ] Hyponatremia, most likely hypovolemic hyponatremia, SIADH ruled out. [ x ] Unable to determine [ ] Other, please specify (Template Last Reviewed: September 2022) MTDD
[2024-01-18 12:48] LABS: African American GFR (CKD) >90 (>60 ml/min/1.73 sqM); Anion Gap 13 mmol/L; Blood Urea Nitrogen 13 mg/dL (9-20); Carbon Dioxide 16 mmol/L (22-30); Chloride 96 mmol/L (98-107); Glucose 58 mg/dL (74-99); Magnesium 1.6 mg/dL (1.6-2.3); Non-African American GFR(CKD) >90 (>60 ml/min/1.73 sqM); Potassium 4.5 mmol/L (3.5-5.1); Sodium 125 mmol/L (137-145)
[2024-01-18 12:53] LABS: HCT 31.3 % (39.0-53.0); HGB 10.4 gm/dL (13.0-17.5); MCH 31.3 pg (25.0-35.0); MCHC 33.3 g/dL (31.0-37.0); MCV 93.9 fL (80.0-100.0); Mean Platelet Volume 7.5; Platelet Count 263 k/uL (150-450); RBC 3.33 m/uL (4.30-5.90); RDW 13.8 % (11.5-15.5); WBC 21.2 k/uL (3.8-10.6)
[2024-01-18 12:57] VITALS: BMI 19.3
[2024-01-18 15:20] LABS: Monocytes # (M) 0.42 k/uL (0-1.0); Neutrophils # (M) 3.18 k/uL (1.3-7.7); Neutrophils % (M) 15 %; Nucleated Red Blood Cells 0 /100 WBC (0-0); Total Cells Counted 100
[2024-01-18 15:22] LABS: Free Lambda Lt Chain Qnt, Seru 0.73 mg/dL (0.57-2.63)
[2024-01-18 16:30] LABS: Glucose,Whole Blood 91 mg/dL (70-110)
[2024-01-18 16:52] LABS: % Iron Saturation 23.98 (15.00-50.00)
--- NOTE | 2024-01-18 17:29 | P.PN ---
Subjective Progress Note Date: 01/18/24 Principal diagnosis: Lethargy In follow-up today patient is sitting up in bed, he is watching television, he states that he does occasionally eat food for pleasure, he denies any difficulty swallowing or painful swallowing. He does have the PEG tube, denies any nausea or vomiting. No cough. He is not in any pain. Denies any bleeding. Objective - Vital Signs Vital signs: Vital Signs Temp 97.7 F 01/18/24 15:52 Pulse 75 01/18/24 15:52 Resp 16 01/18/24 15:52 BP 108/59 01/18/24 15:52 Pulse Ox 100 01/18/24 15:52 FiO2 Intake & Output 01/17/24 01/18/24 01/18/24 18:59 06:59 18:59 Intake Total 0 240 Output Total 750 700 450 Balance -750 -700 -210 Weight 61.235 kg 61.235 kg Intake: Oral 0 240 Output: Urine 750 700 450 Other: Voiding Method External Catheter External Catheter - Constitutional General appearance: Present: average body habitus, cooperative, no acute distress - EENT Eyes: Present: anicteric sclerae, EOMI ENT: Present: hearing grossly normal - Respiratory Respiratory: bilateral: CTA - Cardiovascular Rhythm: regular - Gastrointestinal General gastrointestinal: Present: soft - Musculoskeletal Musculoskeletal: Present: right sided weakness - Psychiatric Psychiatric: Present: A&O x's 3, appropriate affect, intact judgment & insight - Labs CBC & Chem 7: 01/18/24 10:51 01/18/24 10:51 Labs: Abnormal Lab Results - Last 24 Hours (Table) 01/17/24 01/18/24 01/18/24 Range/Units 10:27 10:51 10:51 WBC 21.2 H (3.8-10.6) k/uL RBC 3.33 L (4.30-5.90) m/uL Hgb 10.4 L (13.0-17.5) gm/dL Hct 31.3 L (39.0-53.0) % Lymphocytes # (Manual) 17.60 H (1.0-4.8) k/uL Retic Count (0.5-2.0) % Sodium 125 L (137-145) mmol/L Chloride 96 L (98-107) mmol/L Carbon Dioxide 16 L (22-30) mmol/L Creatinine 0.58 L (0.66-1.25) mg/dL Glucose 58 L (74-99) mg/dL Iron (65-175) UG/DL TIBC (228-460) UG/DL Transferrin (204.0-354.0) mg/dL Ferritin (22.0-322.0) ng/mL Vitamin B12 (200.0-944.0) pg/mL Free [place] LC, Quant 4.00 H (0.33-1.94) mg/dL 01/18/24 01/18/24 Range/Units 10:51 10:51 WBC (3.8-10.6) k/uL RBC (4.30-5.90) m/uL Hgb (13.0-17.5) gm/dL Hct (39.0-53.0) % Lymphocytes # (Manual) (1.0-4.8) k/uL Retic Count 2.1 H (0.5-2.0) % Sodium (137-145) mmol/L Chloride (98-107) mmol/L Carbon Dioxide (22-30) mmol/L Creatinine (0.66-1.25) mg/dL Glucose (74-99) mg/dL Iron 53 L (65-175) UG/DL TIBC 221 L (228-460) UG/DL Transferrin 158.0 L (204.0-354.0) mg/dL Ferritin 652.0 H (22.0-322.0) ng/mL Vitamin B12 1293.0 H (200.0-944.0) pg/mL Free [place] LC, Quant (0.33-1.94) mg/dL Assessment and Plan (1) Altered mental status Current Visit: Yes Status: Acute Priority: High Code(s): R41.82 - ALTERED MENTAL STATUS, UNSPECIFIED SNOMED Code(s): 124986918 (2) Hyponatremia Current Visit: Yes Status: Acute Priority: High Code(s): E87.1 - HYPO- OSMOLALITY AND HYPONATREMIA SNOMED Code(s): 66529074 (3) Waldenstrom macroglobulinemia Current Visit: Yes Status: Suspected Priority: Medium Code(s): C88.0 - WALDENSTROM MACROGLOBULINEMIA SNOMED Code(s): 932678834 Plan: Altered mental status -Today pt is alert and answered questions appropriately. . -Elevated lactic acid on admit, this has come down. No fevers. Hyponatremia -? if 2/2 to recent brain hematoma. Neurology consulted Waldenstrm's macroglobulinemia -Suspect. Patient just recently saw Dr. Duong for the second time day of admit. His initial lab workup in Sep did show a paraproteinemia of 1.97 g/dL, IgM 3039, IgA and IgG both low. Patient's hemoglobin baseline has been in the 11-12 range previously. -repeat paraproteinemia work up pending -Anemia work up-anemia of inflammation. No iron supplementation at this time. B12 levels elevated, no supplementation necessary at this time. -Hemolysis labs ordered -serum viscosity pending
--- NOTE | 2024-01-18 18:17 | P.PN ---
Subjective Progress Note Date: 01/18/24 I am following up with the patient and he was watching TV and denies any headache or any new neurological issues. He denies any new new weakness numbness visual disturbance. He feels he is doing well. Objective - Vital Signs Vital signs: Vital Signs Temp 97.7 F 01/18/24 15:52 Pulse 75 01/18/24 15:52 Resp 16 01/18/24 15:52 BP 108/59 01/18/24 15:52 Pulse Ox 100 01/18/24 15:52 FiO2 Intake & Output 01/17/24 01/18/24 01/18/24 18:59 06:59 18:59 Intake Total 0 240 Output Total 750 700 450 Balance -750 -700 -210 Weight 61.235 kg 61.235 kg Intake: Oral 0 240 Output: Urine 750 700 450 Other: Voiding Method External Catheter External Catheter - Exam General: Lying in bed and is not in acute distress. Neuro: The patient is awake alert oriented to self, time and place. He is following simple commands. He is very hypophonic. Pupils are round equal reactive to light. Visual [place] are full to confrontation. Extraocular movements intact. Patient has right lower facial droop. He has moderate to severe dysarthria. Motor is the strength and left side is 5 out of 5 for the right is patient has spasticity more in the upper than the lower and he has minimal movement in the upper but again it is limited because of the spasticity in the lower he has some antigravity. Reflexes is burst over the right Some of the workup during this hospital visit consisted of: Initial white blood cell is about 22,000. Initial sodium on presentation is 122 and the repeat is 125. TSH is 3.63 I reviewed rest of the lab workup. CT of the head is reported as no acute intracranial process. The left basal ganglia hematoma continues to evolve without evidence of recurrent or new hemorrhage. No new or persistent hyperdense acute hemorrhage. Personally reviewed the CT of the head and there is no acute or subacute ischemia. There is no bleed that appreciable. Patient does have hypodensity over the left basal ganglia but again the patient had a history of brain bleed in September 2023. - Labs CBC & Chem 7: 01/18/24 10:51 01/18/24 10:51 Labs: Abnormal Lab Results - Last 24 Hours (Table) 01/17/24 01/18/24 01/18/24 Range/Units 10:27 10:51 10:51 WBC 21.2 H (3.8-10.6) k/uL RBC 3.33 L (4.30-5.90) m/uL Hgb 10.4 L (13.0-17.5) gm/dL Hct 31.3 L (39.0-53.0) % Lymphocytes # (Manual) 17.60 H (1.0-4.8) k/uL Retic Count (0.5-2.0) % Sodium 125 L (137-145) mmol/L Chloride 96 L (98-107) mmol/L Carbon Dioxide 16 L (22-30) mmol/L Creatinine 0.58 L (0.66-1.25) mg/dL Glucose 58 L (74-99) mg/dL Iron (65-175) UG/DL TIBC (228-460) UG/DL Transferrin (204.0-354.0) mg/dL Ferritin (22.0-322.0) ng/mL Vitamin B12 (200.0-944.0) pg/mL Free [place] LC, Quant 4.00 H (0.33-1.94) mg/dL 01/18/24 01/18/24 Range/Units 10:51 10:51 WBC (3.8-10.6) k/uL RBC (4.30-5.90) m/uL Hgb (13.0-17.5) gm/dL Hct (39.0-53.0) % Lymphocytes # (Manual) (1.0-4.8) k/uL Retic Count 2.1 H (0.5-2.0) % Sodium (137-145) mmol/L Chloride (98-107) mmol/L Carbon Dioxide (22-30) mmol/L Creatinine (0.66-1.25) mg/dL Glucose (74-99) mg/dL Iron 53 L (65-175) UG/DL TIBC 221 L (228-460) UG/DL Transferrin 158.0 L (204.0-354.0) mg/dL Ferritin 652.0 H (22.0-322.0) ng/mL Vitamin B12 1293.0 H (200.0-944.0) pg/mL Free [place] LC, Quant (0.33-1.94) mg/dL Assessment and Plan Assessment: This is a 78-year-old gentleman who presented emergency department from his outpatient oncologist of confusion, respiratory distress. His sodium was 122 presentation. Altered mental status seems due to metabolic encephalopathy--mentation improved Hyponatremia of 122-->125 and unsure cause. I cannot rule out SIADH from prior brain bleed but feel less likely. The bleed was on 09/2023 and his sodium in 11/2023 was 134 and mid December was high 129. 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 Plan discussed with the patient. There is no further neurological work-up. Will sign off. Please reconsult if needed. Time with Patient: Less than 30
[2024-01-19 00:25] LABS: Glucose,Whole Blood 115 mg/dL (70-110)
[2024-01-19 05:56] LABS: Glucose,Whole Blood 124 mg/dL (70-110)
[2024-01-19 07:48] LABS: African American GFR (CKD) >90 (>60 ml/min/1.73 sqM); Anion Gap 6 mmol/L; Blood Urea Nitrogen 10 mg/dL (9-20); Calcium 8.6 mg/dL (8.4-10.2); Carbon Dioxide 23 mmol/L (22-30); Chloride 98 mmol/L (98-107); Glucose 94 mg/dL (74-99); Non-African American GFR(CKD) >90 (>60 ml/min/1.73 sqM); Potassium 4.4 mmol/L (3.5-5.1); Sodium 127 mmol/L (137-145)
--- NOTE | 2024-01-19 07:58 | P.PN ---
Subjective This is a pleasant 78 years old -[place] Citizen male with past medical problem of osteoarthritis and pneumonia. And has chronic leukocytosis and non-Hodgkin lymphoma and he follows up with Dr. Duong. Patient somewhat is poor historian and information were obtained from the patient, records and staff. Looks like patient was sent from his cancer center for being diaphoretic with altered mental status This morning patient is awake and alert and follows some commands, he looks mildly confused. He has muffled talking with lack of denture. His right arm is flexed. He has PEG tube in place. Patient is afebrile, blood pressure is stable He has leukocytosis 21.9 which looks his baseline over the last 4 to 5 months since September 2023 baseline is 25-31 Hemoglobin 10.8. Sodium 122, potassium slightly elevated 5.9 but looks hemolyzed sample Liver enzymes mildly elevated. Urinalysis is negative Lactic acid 2.8 came back to reference range and 2.[address] of the brain is negative Chest x-ray is low volume showing atelectasis versus pulmonary edema Patient received 2 L of normal saline in the emergency room and continued on 75 mL/h He was admitted with hematology oncology team consult 01/18/2024 Patient is more awake and alert today, he answers questions appropriately, he has baseline muffled speech. He denies specific complaint He has PEG tube and we consulted dietitian for starting tube feeding. He was getting PEG tube at [facility] prior to send him to oncology clinic who referred him to the hospital yesterday. He remains on normal saline 75 mL/h Yesterday sodium started improving 122 up to 125 Further workup per hematology/oncology team. 01/19/2024 Patient is lethargic and weak. No other new complaints Sodium slowly and gradually improving, 127 today. Keep normal saline 75 mL/h Paraproteinemia workup per hematology team is undergoing. Recheck TSH was 3.6 which is within the reference range Objective - Vital Signs Vital signs: Vital Signs Temp 97.0 F L 01/19/24 03:45 Pulse 78 01/19/24 03:45 Resp 16 01/19/24 03:45 BP 98/54 01/19/24 03:45 Pulse Ox 97 01/19/24 03:45 FiO2 Intake & Output 01/18/24 01/19/24 01/19/24 18:59 06:59 18:59 Intake Total 358 Output Total 450 400 Balance -92 -400 Weight 61.235 kg Intake: Oral 358 Output: Urine 450 400 Other: Voiding Method External Catheter External Catheter # Voids 1 - Exam GENERAL: The patient is alert and oriented x3, not in any acute distress. Well developed, well nourished. -HEENT: Pupils are round and equally reacting to light. EOMI. No scleral icterus. No conjunctival pallor. Normocephalic, atraumatic. No pharyngeal erythema. No thyromegaly. Mildly dehydrated and dry mucous membranes CARDIOVASCULAR: S1 and S2 present. No murmurs, rubs, or gallops. PULMONARY: Chest is clear to auscultation, no wheezing , no crackles. -ABDOMEN: Soft, nontender, nondistended, normoactive bowel sounds. No palpable organomegaly. PEG tube in place MUSCULOSKELETAL: No joint swelling or deformity. EXTREMITIES: No cyanosis, clubbing, or pedal edema. NEUROLOGICAL: Gross neurological examination did not reveal any focal deficits. SKIN: No rashes. no petechiae. - Labs CBC & Chem 7: 01/18/24 10:51 01/19/24 07:05 Labs: Abnormal Lab Results - Last 24 Hours (Table) 01/17/24 01/18/24 01/18/24 Range/Units 10:27 10:51 10:51 WBC 21.2 H (3.8-10.6) k/uL RBC 3.33 L (4.30-5.90) m/uL Hgb 10.4 L (13.0-17.5) gm/dL Hct 31.3 L (39.0-53.0) % Lymphocytes # (Manual) 17.60 H (1.0-4.8) k/uL Retic Count (0.5-2.0) % Sodium 125 L (137-145) mmol/L Chloride 96 L (98-107) mmol/L Carbon Dioxide 16 L (22-30) mmol/L Creatinine 0.58 L (0.66-1.25) mg/dL Glucose 58 L (74-99) mg/dL POC Glucose (mg/dL) (70-110) mg/dL Iron (65-175) UG/DL TIBC (228-460) UG/DL Transferrin (204.0-354.0) mg/dL Ferritin (22.0-322.0) ng/mL Lactate Dehydrogenase (120-246) U/L Vitamin B12 (200.0-944.0) pg/mL Free [place] LC, Quant 4.00 H (0.33-1.94) mg/dL 01/18/24 01/18/24 01/18/24 Range/Units 10:51 10:51 10:51 WBC (3.8-10.6) k/uL RBC (4.30-5.90) m/uL Hgb (13.0-17.5) gm/dL Hct (39.0-53.0) % Lymphocytes # (Manual) (1.0-4.8) k/uL Retic Count 2.1 H (0.5-2.0) % Sodium (137-145) mmol/L Chloride (98-107) mmol/L Carbon Dioxide (22-30) mmol/L Creatinine (0.66-1.25) mg/dL Glucose (74-99) mg/dL POC Glucose (mg/dL) (70-110) mg/dL Iron 53 L (65-175) UG/DL TIBC 221 L (228-460) UG/DL Transferrin 158.0 L (204.0-354.0) mg/dL Ferritin 652.0 H (22.0-322.0) ng/mL Lactate Dehydrogenase 109 L (120-246) U/L Vitamin B12 1293.0 H (200.0-944.0) pg/mL Free [place] LC, Quant (0.33-1.94) mg/dL 01/19/24 01/19/24 01/19/24 Range/Units 00:23 05:54 07:05 WBC (3.8-10.6) k/uL RBC (4.30-5.90) m/uL Hgb (13.0-17.5) gm/dL Hct (39.0-53.0) % Lymphocytes # (Manual) (1.0-4.8) k/uL Retic Count (0.5-2.0) % Sodium 127 L (137-145) mmol/L Chloride (98-107) mmol/L Carbon Dioxide (22-30) mmol/L Creatinine 0.55 L (0.66-1.25) mg/dL Glucose (74-99) mg/dL POC Glucose (mg/dL) 115 H 124 H (70-110) mg/dL Iron (65-175) UG/DL TIBC (228-460) UG/DL Transferrin (204.0-354.0) mg/dL Ferritin (22.0-322.0) ng/mL Lactate Dehydrogenase (120-246) U/L Vitamin B12 (200.0-944.0) pg/mL Free [place] LC, Quant (0.33-1.94) mg/dL Assessment and Plan Assessment: Altered mental status most likely metabolic encephalopathy, improving Non-Hodgkin lymphoma with chronic leukocytosis, follow-up with Dr. Duong as an outpatient Hyponatremia, most likely hypovolemic hyponatremia Mild transaminitis Mildly elevated lactic acid came back to reference range Mildly elevated TSH Dehydration Plan: Continue normal saline Monitor sodium level and electrolytes closely Dietary team consult Hematology/oncology consult Repeat labs Labs and medication were reviewed.. Continue same treatment. Continue with symptomatic treatment. Resume home medication. Monitor labs and vitals. DVT and GI prophylaxis. Further recommendations as per clinical course of the patient DVT prophylaxis: Subcutaneous heparin GI Prophylaxis: Ppi Prognosis is guarded
[2024-01-19 11:33] LABS: Glucose,Whole Blood 109 mg/dL (70-110)
[2024-01-19] MEDS: ZINC OXIDE PASTE (Z-GUARD) 1 APPLIC TOPICAL PRN (11:35)
[2024-01-19 16:43] LABS: Glucose,Whole Blood 130 mg/dL (70-110)
[2024-01-19 19:32] LABS: Glucose,Whole Blood 115 mg/dL (70-110)
[2024-01-20 05:51] LABS: Glucose,Whole Blood 108 mg/dL (70-110)
[2024-01-20 11:32] LABS: Glucose,Whole Blood 127 mg/dL (70-110)
[2024-01-20 12:09] LABS: African American GFR (CKD) >90 (>60 ml/min/1.73 sqM); Anion Gap 6 mmol/L; Blood Urea Nitrogen 9 mg/dL (9-20); Calcium 8.7 mg/dL (8.4-10.2); Carbon Dioxide 26 mmol/L (22-30); Chloride 97 mmol/L (98-107); Glucose 97 mg/dL (74-99); Non-African American GFR(CKD) >90 (>60 ml/min/1.73 sqM); Potassium 4.7 mmol/L (3.5-5.1); Sodium 129 mmol/L (137-145)
[2024-01-20 12:17] LABS: HCT 28.2 % (39.0-53.0); HGB 9.7 gm/dL (13.0-17.5); MCHC 34.2 g/dL (31.0-37.0); MCV 93.5 fL (80.0-100.0); Mean Platelet Volume 7.4; Platelet Count 233 k/uL (150-450); RBC 3.02 m/uL (4.30-5.90); RDW 14.3 % (11.5-15.5); WBC 21.3 k/uL (3.8-10.6)
[2024-01-20 14:02] LABS: Lymphocytes # (M) 18.53 k/uL (1.0-4.8); Monocytes # (M) 0.64 k/uL (0-1.0); Neutrophils # (M) 2.13 k/uL (1.3-7.7); Neutrophils % (M) 10 %; Nucleated Red Blood Cells 0 /100 WBC (0-0); Total Cells Counted 100
[2024-01-20 16:53] LABS: Glucose,Whole Blood 117 mg/dL (70-110)
[2024-01-20 17:26] LABS: Appearance,Urine Clear (Clear); Bilirubin,Urine Negative (Negative); Blood,Urine Negative (Negative); Color,Urine Colorless; Glucose,Urine (UA) Negative (Negative); Ketones,Urine Negative (Negative); Leukocyte Esterase,Urine Negative (Negative); Nitrite,Urine Negative (Negative); Protein,Urine Negative (Negative); Specific Gravity,Urine 1.015 (1.001-1.035)
--- NOTE | 2024-01-20 18:34 | P.PN ---
Subjective Progress Note Date: 01/20/24 In follow-up today patient is sitting up in bed. Reporting feeling well. He is occasionally eating food for pleasure, he denies any difficulty swallowing or painful swallowing. PEG tube in place, denies nausea or vomiting. Denies pain. Denies any episodes of acute bleeding. Objective - Vital Signs Vital signs: Vital Signs Temp 97.9 F 01/20/24 15:41 Pulse 81 01/20/24 15:41 Resp 16 01/20/24 15:41 BP 123/72 01/20/24 15:41 Pulse Ox 100 01/20/24 15:41 FiO2 Intake & Output 01/19/24 01/20/24 01/20/24 18:59 06:59 18:59 Intake Total 118 240 Output Total 429 634 9748 Balance -482 929 -699 Weight 61.235 kg Intake: Oral 118 240 Output: Urine 450 847 8557 Other: Voiding Method External Catheter External Catheter External Catheter # Voids 1 - Constitutional General appearance: Present: average body habitus, no acute distress - EENT Eyes: Present: anicteric sclerae ENT: Present: hearing grossly normal - Respiratory Details: breathing is even and unlabored - Cardiovascular Details: skin warm and dry - Gastrointestinal General gastrointestinal: Present: soft. Absent: tenderness - Integumentary Integumentary: Absent: cyanotic - Musculoskeletal Musculoskeletal: Present: strength equal bilaterally - Psychiatric Psychiatric: Present: A&O x's 3 - Labs CBC & Chem 7: 01/20/24 11:02 01/20/24 11:02 Labs: Abnormal Lab Results - Last 24 Hours (Table) 01/19/24 01/20/24 01/20/24 Range/Units 19:30 11:02 11:02 WBC 21.3 H (3.8-10.6) k/uL RBC 3.02 L (4.30-5.90) m/uL Hgb 9.7 L (13.0-17.5) gm/dL Hct 28.2 L (39.0-53.0) % Lymphocytes # (Manual) 18.53 H (1.0-4.8) k/uL Sodium 129 L (137-145) mmol/L Chloride 97 L (98-107) mmol/L Creatinine 0.44 L (0.66-1.25) mg/dL POC Glucose (mg/dL) 115 H (70-110) mg/dL 01/20/24 01/20/24 Range/Units 11:31 16:51 WBC (3.8-10.6) k/uL RBC (4.30-5.90) m/uL Hgb (13.0-17.5) gm/dL Hct (39.0-53.0) % Lymphocytes # (Manual) (1.0-4.8) k/uL Sodium (137-145) mmol/L Chloride (98-107) mmol/L Creatinine (0.66-1.25) mg/dL POC Glucose (mg/dL) 127 H 117 H (70-110) mg/dL Assessment and Plan (1) Altered mental status Current Visit: Yes Status: Acute Priority: High Code(s): R41.82 - ALTERED MENTAL STATUS, UNSPECIFIED SNOMED Code(s): 508066263 (2) Hyponatremia Current Visit: Yes Status: Acute Priority: High Code(s): E87.1 - HYPO- OSMOLALITY AND HYPONATREMIA SNOMED Code(s): 38861106 (3) Leukocytosis Current Visit: Yes Status: Acute Priority: Medium Code(s): D72.829 - ELEVATED WHITE BLOOD CELL COUNT, UNSPECIFIED SNOMED Code(s): 257974253 (4) Nausea & vomiting Current Visit: Yes Status: Acute Priority: Medium Code(s): R11.2 - NAUSEA WITH VOMITING, UNSPECIFIED SNOMED Code(s): 67174850 (5) Waldenstrom macroglobulinemia Current Visit: Yes Status: Suspected Priority: Medium Code(s): C88.0 - WALDENSTROM MACROGLOBULINEMIA SNOMED Code(s): 937098137 Plan: Altered mental status -Today pt is alert and answered questions appropriately -Elevated lactic acid on admit, this has come down. Pat afebrile Hyponatremia - Possible SIADH r/t recent brain hematoma. Neurology consulted, no intervention planned at this time -Sodium 127 today -Defer management to admitting team and neuro Waldenstrm's macroglobulinemia -WM suspected. Patient just recently saw Dr. Duong for the second time on day of admit. His initial lab workup in Sep did show a paraproteinemia of 1.97 g/dL, IgM 3039, IgA and IgG both low. Patient's hemoglobin baseline has been in the 11-12 range previously. -Repeat paraproteinemia ordered. K/L ratio elevated at 5.47, SPEP pending -Anemia work up consistent with anemia of inflammation. No iron supplementation at this time. B12 levels elevated, no supplementation necessary at this time. -Hemolysis workup negative -Serum viscosity pending Dr attests: I have performed H&P and developed impression and plan of care for patient, discussed with dictator. I agree with dictated note, documented as a scribe
[2024-01-20 20:21] LABS: Glucose,Whole Blood 115 mg/dL (70-110)
--- NOTE | 2024-01-20 23:00 | P.PN ---
Subjective Progress Note Date: 01/20/24 78 years old -[place] male with past medical problem of osteoarthritis and pneumonia. And has chronic leukocytosis and non-Hodgkin lymphoma and he follows up with Dr. Duong. Patient somewhat is poor historian and information were obtained from the patient, records and staff. Looks like patient was sent from his cancer center for being diaphoretic with altered mental status This morning patient is awake and alert and follows some commands, he looks mildly confused. He has muffled talking with lack of denture. His right arm is flexed. He has PEG tube in place. Patient is afebrile, blood pressure is stable He has leukocytosis 21.9 which looks his baseline over the last 4 to 5 months since September 2023 baseline is 25-31 Hemoglobin 10.8. Sodium 122, potassium slightly elevated 5.9 but looks hemolyzed sample Liver enzymes mildly elevated. Urinalysis is negative Lactic acid 2.8 came back to reference range and 2.[address] of the brain is negative Chest x-ray is low volume showing atelectasis versus pulmonary edema Patient received 2 L of normal saline in the emergency room and continued on 75 mL/h He was admitted with hematology oncology team consult Objective - Vital Signs Vital signs: Vital Signs Temp 98.0 F 01/20/24 09:40 Pulse 69 01/20/24 09:41 Resp 16 01/20/24 09:41 BP 115/69 01/20/24 09:40 Pulse Ox 100 01/20/24 09:40 FiO2 Intake & Output 01/19/24 01/20/24 01/20/24 18:59 06:59 18:59 Intake Total 118 0 Output Total 600 925 600 Balance -482 925 -600 Weight 61.235 kg Intake: Oral 118 0 Output: Urine 600 925 600 Other: Voiding Method External Catheter External Catheter External Catheter # Voids 1 - Exam GENERAL: The patient is alert and oriented x3, not in any acute distress. Well developed, well nourished. -HEENT: Pupils are round and equally reacting to light. EOMI. No scleral icterus. No conjunctival pallor. Normocephalic, atraumatic. No pharyngeal erythema. No thyromegaly. Mildly dehydrated and dry mucous membranes CARDIOVASCULAR: S1 and S2 present. No murmurs, rubs, or gallops. PULMONARY: Chest is clear to auscultation, no wheezing , no crackles. -ABDOMEN: Soft, nontender, nondistended, normoactive bowel sounds. No palpable organomegaly. PEG tube in place MUSCULOSKELETAL: No joint swelling or deformity. EXTREMITIES: No cyanosis, clubbing, or pedal edema. NEUROLOGICAL: Gross neurological examination did not reveal any focal deficits. SKIN: No rashes. no petechiae. - Labs CBC & Chem 7: 01/20/24 11:02 01/20/24 11:02 Labs: Abnormal Lab Results - Last 24 Hours (Table) 01/19/24 01/19/24 01/20/24 Range/Units 16:41 19:30 11:31 POC Glucose (mg/dL) 130 H 115 H 127 H (70-110) mg/dL Assessment and Plan Assessment: Altered mental status most likely metabolic encephalopathy, improving Non-Hodgkin lymphoma with chronic leukocytosis, follow-up with Dr. Duong as an outpatient Hyponatremia, most likely hypovolemic hyponatremia Mild transaminitis Mildly elevated lactic acid came back to reference range Mildly elevated TSH Dehydration Plan: Continue normal saline Monitor sodium level and electrolytes closely Dietary team consult Hematology/oncology consult Repeat labs Labs and medication were reviewed.. Continue same treatment. Continue with symptomatic treatment. Resume home medication. Monitor labs and vitals. DVT and GI prophylaxis. Further recommendations as per clinical course of the patient DVT prophylaxis: Subcutaneous heparin GI Prophylaxis: Ppi
[2024-01-21 00:12] LABS: Albumin 3.31 g/dL (3.80-4.90); Gamma Globulin 2.12 g/dL (0.70-1.50)
[2024-01-21 06:19] LABS: Glucose,Whole Blood 109 mg/dL (70-110)
[2024-01-21 08:43] LABS: HCT 27.4 % (39.0-53.0); HGB 8.9 gm/dL (13.0-17.5); MCH 30.4 pg (25.0-35.0); MCHC 32.4 g/dL (31.0-37.0); MCV 93.9 fL (80.0-100.0); Mean Platelet Volume 7.5; Platelet Count 225 k/uL (150-450); RBC 2.92 m/uL (4.30-5.90); RDW 14.3 % (11.5-15.5); WBC 19.1 k/uL (3.8-10.6)
[2024-01-21 09:04] LABS: African American GFR (CKD) >90 (>60 ml/min/1.73 sqM); Anion Gap 3 mmol/L; Blood Urea Nitrogen 10 mg/dL (9-20); Calcium 8.6 mg/dL (8.4-10.2); Carbon Dioxide 26 mmol/L (22-30); Chloride 98 mmol/L (98-107); Glucose 106 mg/dL (74-99); Non-African American GFR(CKD) >90 (>60 ml/min/1.73 sqM); Potassium 4.5 mmol/L (3.5-5.1); Sodium 127 mmol/L (137-145)
[2024-01-21 10:47] LABS: Lymphocytes # (M) 14.71 k/uL (1.0-4.8); Monocytes # (M) 0.76 k/uL (0-1.0); Neutrophils # (M) 3.63 k/uL (1.3-7.7); Neutrophils % (M) 19 %; Nucleated Red Blood Cells 0 /100 WBC (0-0); Total Cells Counted 100
[2024-01-21 10:48] LABS: RBC Morphology Normal
[2024-01-21 11:26] LABS: Glucose,Whole Blood 116 mg/dL (70-110)
[2024-01-21] MEDS: SODIUM CHLORIDE TAB 1 GM TAB PO STA (13:45)
--- NOTE | 2024-01-21 16:06 | P.PN ---
Subjective Progress Note Date: 01/21/24 78 years old -[place]azi male with past medical problem of osteoarthritis and pneumonia. And has chronic leukocytosis and non-Hodgkin lymphoma and he follows up with Dr. Duong. Patient somewhat is poor historian and information were obtained from the patient, records and staff. Looks like patient was sent from his cancer center for being diaphoretic with altered mental status This morning patient is awake and alert and follows some commands, he looks mildly confused. He has muffled talking with lack of denture. His right arm is flexed. He has PEG tube in place. Patient is afebrile, blood pressure is stable He has leukocytosis 21.9 which looks his baseline over the last 4 to 5 months since September 2023 baseline is 25-31 Hemoglobin 10.8. Sodium 122, potassium slightly elevated 5.9 but looks hemolyzed sample Liver enzymes mildly elevated. Urinalysis is negative Lactic acid 2.8 came back to reference range and 2.0 [address] of the brain is negative Chest x-ray is low volume showing atelectasis versus pulmonary edema Patient received 2 L of normal saline in the emergency room and continued on 75 mL/h He was admitted with hematology oncology team consult 01/21/2024 Patient is seen and evaluated in room at bedside; no specific complaints reported Vital signs are reviewed and remained stable Lab review shows sodium level trending down again today to 127 from 129 yesterday; white blood count continues to trend down and is at 19.1 this morning Patient admitted with altered mental status which is resolving --Sodium level trended down to 127 this morning; will consult nephrology for further evaluation Objective - Vital Signs Vital signs: Vital Signs Temp 98.4 F 01/21/24 09:25 Pulse 72 01/21/24 09:25 Resp 18 01/21/24 09:25 BP 122/66 01/21/24 09:25 Pulse Ox 100 01/21/24 09:25 FiO2 Intake & Output 01/20/24 01/21/24 01/21/24 18:59 06:59 18:59 Intake Total 290 20 130 Output Total 1125 400 Balance -835 -380 130 Intake: IV 20 10 Invasive Line 1 20 10 Oral 290 120 Output: Urine 1125 400 Other: Voiding Method External Catheter External Catheter External Catheter # Voids 400 # Bowel Movements 1 - Exam GENERAL: The patient is alert and oriented x3, not in any acute distress. Well developed, well nourished. -HEENT: Pupils are round and equally reacting to light. EOMI. No scleral icterus. No conjunctival pallor. Normocephalic, atraumatic. No pharyngeal erythema. No thyromegaly. Mildly dehydrated and dry mucous membranes CARDIOVASCULAR: S1 and S2 present. No murmurs, rubs, or gallops. PULMONARY: Chest is clear to auscultation, no wheezing , no crackles. -ABDOMEN: Soft, nontender, nondistended, normoactive bowel sounds. No palpable organomegaly. PEG tube in place MUSCULOSKELETAL: No joint swelling or deformity. EXTREMITIES: No cyanosis, clubbing, or pedal edema. NEUROLOGICAL: Gross neurological examination did not reveal any focal deficits. SKIN: No rashes. no petechiae. - Labs CBC & Chem 7: 01/21/24 08:20 01/21/24 08:20 Labs: Abnormal Lab Results - Last 24 Hours (Table) 01/17/24 01/20/24 01/20/24 Range/Units 10:27 11:02 11:02 WBC 21.3 H (3.8-10.6) k/uL RBC 3.02 L (4.30-5.90) m/uL Hgb 9.7 L (13.0-17.5) gm/dL Hct 28.2 L (39.0-53.0) % Lymphocytes # (Manual) 18.53 H (1.0-4.8) k/uL Sodium 129 L (137-145) mmol/L Chloride 97 L (98-107) mmol/L Creatinine 0.44 L (0.66-1.25) mg/dL Glucose (74-99) mg/dL POC Glucose (mg/dL) (70-110) mg/dL Albumin (PEP) 3.31 L (3.80-4.90) g/dL Ugxdw-2-Gazvmqoje 0.50 H (0.10-0.40) g/dL Beta Globulins 0.59 L (0.60-1.30) g/dL Gamma Globulins 2.12 H (0.70-1.50) g/dL 01/20/24 01/20/24 01/21/24 Range/Units 16:51 20:20 08:20 WBC 19.1 H (3.8-10.6) k/uL RBC 2.92 L (4.30-5.90) m/uL Hgb 8.9 L (13.0-17.5) gm/dL Hct 27.4 L (39.0-53.0) % Lymphocytes # (Manual) 14.71 H (1.0-4.8) k/uL Sodium (137-145) mmol/L Chloride (98-107) mmol/L Creatinine (0.66-1.25) mg/dL Glucose (74-99) mg/dL POC Glucose (mg/dL) 117 H 115 H (70-110) mg/dL Albumin (PEP) (3.80-4.90) g/dL Jqeqh-5-Lvyfzdrni (0.10-0.40) g/dL Beta Globulins (0.60-1.30) g/dL Gamma Globulins (0.70-1.50) g/dL 01/21/24 01/21/24 Range/Units 08:20 11:25 WBC (3.8-10.6) k/uL RBC (4.30-5.90) m/uL Hgb (13.0-17.5) gm/dL Hct (39.0-53.0) % Lymphocytes # (Manual) (1.0-4.8) k/uL Sodium 127 L (137-145) mmol/L Chloride (98-107) mmol/L Creatinine 0.46 L (0.66-1.25) mg/dL Glucose 106 H (74-99) mg/dL POC Glucose (mg/dL) 116 H (70-110) mg/dL Albumin (PEP) (3.80-4.90) g/dL Ynpoq-1-Chofuzogy (0.10-0.40) g/dL Beta Globulins (0.60-1.30) g/dL Gamma Globulins (0.70-1.50) g/dL Assessment and Plan Assessment: Altered mental status most likely metabolic encephalopathy, improving Non-Hodgkin lymphoma with chronic leukocytosis, follow-up with Dr. Duong as an outpatient Hyponatremia, most likely hypovolemic hyponatremia Mild transaminitis Mildly elevated lactic acid came back to reference range Mildly elevated TSH Dehydration Plan: Continue normal saline Monitor sodium level and electrolytes closely Dietary team consult Hematology/oncology consult Repeat labs Labs and medication were reviewed.. Continue same treatment. Continue with symptomatic treatment. Resume home medication. Monitor labs and vitals. DVT and GI prophylaxis. Further recommendations as per clinical course of the patient DVT prophylaxis: Subcutaneous heparin GI Prophylaxis: Ppi
[2024-01-21 16:24] LABS: Glucose,Whole Blood 113 mg/dL (70-110)
[2024-01-21 20:13] LABS: Glucose,Whole Blood 118 mg/dL (70-110)
[2024-01-22 05:37] LABS: Glucose,Whole Blood 110 mg/dL (70-110)
[2024-01-22 07:51] LABS: African American GFR (CKD) >90 (>60 ml/min/1.73 sqM); Anion Gap 2 mmol/L; Blood Urea Nitrogen 13 mg/dL (9-20); Calcium 8.8 mg/dL (8.4-10.2); Carbon Dioxide 26 mmol/L (22-30); Chloride 96 mmol/L (98-107); Glucose 103 mg/dL (74-99); Non-African American GFR(CKD) >90 (>60 ml/min/1.73 sqM); Potassium 4.4 mmol/L (3.5-5.1); Sodium 124 mmol/L (137-145)
[2024-01-22 10:49] LABS: HCT 27.5 % (39.0-53.0); HGB 9.1 gm/dL (13.0-17.5); MCH 30.7 pg (25.0-35.0); MCHC 33.1 g/dL (31.0-37.0); MCV 92.9 fL (80.0-100.0); Mean Platelet Volume 7.5; Platelet Count 250 k/uL (150-450); RBC 2.96 m/uL (4.30-5.90); RDW 14.2 % (11.5-15.5); WBC 23.2 k/uL (3.8-10.6)
--- NOTE | 2024-01-22 11:06 | P.NPCON ---
History of Present Illness - Reason for Consult hyponatremia - History of Present Illness Reason for consultation: Hyponatremia History of present illness: Patient is a 78-year-old male seen in renal consultation for hyponatremia. Patient came to the hospital on January 16, 2024 due to altered mental status. Patient was confused. Patient has history of non-Hodgkin's lymphoma and follows with oncology outpatient. Patient is not a very reliable historian. Patient sodium level this admission has been as low as 122 and as high as 129. It is 124 today. Patient has been receiving PEG tube feedings. He is receiving minimal free water flushes. He does eat by mouth but it is limited. Denies vomiting or diarrhea. Denies chest pain or shortness of breath. Hemodynamically stable. Renal function at baseline. UA benign. Not receiving any NSAIDs. Not on any diuretics. Vital signs are stable. General: No acute distress. HEENT: Head exam is unremarkable. LUNGS: No audible rhonchi or wheezes. HEART: Rate and Rhythm are regular. ABDOMEN: PEG tube noted. Nontender. EXTREMITITES: No edema. 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), Osteoarthritis (OA), Pneumonia Additional Past Medical History / Comment(s): nonhodgkins lymphoma History of Any Multi-Drug Resistant Organisms: None Reported Past Surgical History: Orthopedic Surgery, Tonsillectomy Additional Past Surgical History / Comment(s): lt knee sx for torn ligaments Past Anesthesia/Blood Transfusion Reactions: No Reported Reaction Past Psychological History: No Psychological Hx Reported Smoking Status: Former smoker Past Alcohol Use History: None Reported Past Drug Use History: None Reported - Past Family History Mother Family Medical History: CVA/TIA Father History Unknown: Yes Medications and Allergies Home Medications Medication Instructions Recorded Confirmed Type Baclofen [Lyvispah] 10 mg PO TID PRN 01/16/24 01/16/24 History Famotidine [Pepcid] 20 mg PO BID 01/16/24 01/16/24 History Osmolite 1.5 65 ml PEG/G-TUBE DIRECTED 01/16/24 01/16/24 History Sertraline [Zoloft] 25 mg PO DAILY 01/16/24 01/16/24 History Z-Guard 1 applic TOPICAL Q12H 01/16/24 01/16/24 History amLODIPine [Norvasc] 5 mg PO DAILY 01/16/24 01/16/24 History lisinopriL [Zestril] 10 mg PO DAILY 01/16/24 01/16/24 History Allergies Allergy/AdvReac Type Severity Reaction Status Date / Time No Known Allergies Allergy Verified 01/16/24 16:10 Physical Exam Vitals: Vital Signs Temp Pulse Resp BP Pulse Ox 01/22/24 09:52 82 17 01/22/24 08:21 98.3 F 82 17 107/61 99 01/22/24 03:39 98.5 F 82 17 120/63 100 01/22/24 02:00 75 17 01/22/24 00:00 98.6 F 76 17 113/61 99 01/21/24 20:00 98.5 F 77 17 121/67 98 01/21/24 14:58 94.5 F L 01/21/24 12:04 80 15 124/66 99 Intake and Output 01/21/24 01/22/24 01/22/24 22:59 06:59 14:59 Intake Total 128 10 240 Output Total 950 500 Balance -822 -490 240 Intake: IV 10 10 Invasive Line 1 10 10 Oral 118 240 Output: Urine 950 500 Other: Voiding Method External Catheter External Catheter External Catheter Results - Lab Results Most recent lab results Calcium 8.8 mg/dL (8.4-10.2) 01/22/24 07:28 Phosphorus 3.5 mg/dL (2.5-4.5) 01/17/24 10:27 Magnesium 1.6 mg/dL (1.6-2.3) 01/18/24 10:51 01/21/24 08:20 01/22/24 07:28 Assessment and Plan Plan: Assessment: 1. Hyponatremia. Appears euvolemic. 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 Also on sertraline which can induce SIADH. Urine osmolality 601. TSH normal. 2. Waldenstrm's macroglobulinemia. Oncology following. 3. History of basal ganglia hematoma. Plan: Samsca 7.5 mg once today. Check a.m. cortisol level. Receiving PEG tube feeds. Minimize water flushes. Maintain oral 1200 cc fluid restriction. Repeat labs in the morning. Thank you for the consultation. I will continue to follow the patient with you during his hospital stay.
[2024-01-22 11:15] LABS: Glucose,Whole Blood 105 mg/dL (70-110)
[2024-01-22] MEDS: TOLVAPTAN 15 MG TABLET PO ONE (12:12)
[2024-01-22 12:41] LABS: Lymphocytes # (M) 19.49 k/uL (1.0-4.8); Neutrophils # (M) 3.02 k/uL (1.3-7.7); Neutrophils % (M) 13 %; Nucleated Red Blood Cells 0 /100 WBC (0-0); RBC Morphology Normal; Total Cells Counted 100
[2024-01-22 16:34] LABS: Glucose,Whole Blood 99 mg/dL (70-110)
[2024-01-22 20:26] LABS: Glucose,Whole Blood 100 mg/dL (70-110)
[2024-01-23 06:18] LABS: Glucose,Whole Blood 100 mg/dL (70-110)
[2024-01-23 07:47] LABS: HCT 29.5 % (39.0-53.0); HGB 9.5 gm/dL (13.0-17.5); MCH 30.7 pg (25.0-35.0); MCHC 32.2 g/dL (31.0-37.0); MCV 95.3 fL (80.0-100.0); Mean Platelet Volume 7.1; Platelet Count 250 k/uL (150-450); RDW 14.3 % (11.5-15.5); WBC 22.9 k/uL (3.8-10.6)
[2024-01-23 08:15] LABS: African American GFR (CKD) >90 (>60 ml/min/1.73 sqM); Anion Gap 5 mmol/L; Blood Urea Nitrogen 18 mg/dL (9-20); Carbon Dioxide 28 mmol/L (22-30); Chloride 99 mmol/L (98-107); Glucose 109 mg/dL (74-99); Magnesium 1.6 mg/dL (1.6-2.3); Non-African American GFR(CKD) >90 (>60 ml/min/1.73 sqM); Potassium 4.6 mmol/L (3.5-5.1); Sodium 132 mmol/L (137-145)
--- NOTE | 2024-01-23 09:00 | P.PN ---
Subjective Progress Note Date: 01/22/24 78 years old -Burm[place] male with past medical problem of osteoarthritis and pneumonia. And has chronic leukocytosis and non-Hodgkin lymphoma and he follows up with Dr. Duong. Patient somewhat is poor historian and information were obtained from the patient, records and staff. Looks like patient was sent from his cancer center for being diaphoretic with altered mental status This morning patient is awake and alert and follows some commands, he looks mildly confused. He has muffled talking with lack of denture. His right arm is flexed. He has PEG tube in place. Patient is afebrile, blood pressure is stable He has leukocytosis 21.9 which looks his baseline over the last 4 to 5 months since September 2023 baseline is 25-31 Hemoglobin 10.8. Sodium 122, potassium slightly elevated 5.9 but looks hemolyzed sample Liver enzymes mildly elevated. Urinalysis is negative Lactic acid 2.8 came back to reference range and 2.[address] of the brain is negative Chest x-ray is low volume showing atelectasis versus pulmonary edema Patient received 2 L of normal saline in the emergency room and continued on 75 mL/h He was admitted with hematology oncology team consult 01/21/2024 Patient is seen and evaluated in room at bedside; no specific complaints reported Vital signs are reviewed and remained stable Lab review shows sodium level trending down again today to 127 from 129 yesterday; white blood count continues to trend down and is at 19.1 this morning Patient admitted with altered mental status which is resolving --Sodium level trended down to 127 this morning; will consult nephrology for further evaluation 01/22/2024 Patient is seen and evaluated sitting up in bed; remains awake and alert; denies any complaints Vital signs are reviewed and remained stable with temperature of 97.8, pulse 74, respirations 17 and blood pressure of 123/84, O2 saturation 99% on room air Labs are reviewed and reveal WBC trending up to 23.2 from 19.1 yesterday(chronic leukocytosis), hemoglobin remained stable at 9.1, potassium stable at 4.4 how er sodium continues to trend down and is at 124 this morning Patient has been evaluated by nephrology hyponatremia likely 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 as well as history of basal ganglia; concern about Zoloft inducing SIADH --Patient has been initiated on Samsca 7.5 mg daily; water flushes for tube feeding recommended to be minimized to maintain daily fluid restriction of 1200 cc We will continue to monitor electrolytes closely Objective - Vital Signs Vital signs: Vital Signs Temp 98.3 F 01/22/24 08:21 Pulse 82 01/22/24 09:52 Resp 17 01/22/24 09:52 BP 107/61 01/22/24 08:21 Pulse Ox 99 01/22/24 08:21 FiO2 Intake & Output 01/21/24 01/22/24 01/22/24 18:59 06:59 18:59 Intake Total 376 20 Output Total 700 750 Balance -324 -730 Intake: IV 20 20 Invasive Line 1 20 20 Oral 356 Output: Urine 700 750 Other: Voiding Method External Catheter External Catheter External Catheter # Voids 400 # Bowel Movements 1 - Exam GENERAL: The patient is alert and oriented x3, not in any acute distress. Well developed, well nourished. -HEENT: Pupils are round and equally reacting to light. EOMI. No scleral icterus. No conjunctival pallor. Normocephalic, atraumatic. No pharyngeal erythema. No thyromegaly. Mildly dehydrated and dry mucous membranes CARDIOVASCULAR: S1 and S2 present. No murmurs, rubs, or gallops. PULMONARY: Chest is clear to auscultation, no wheezing , no crackles. -ABDOMEN: Soft, nontender, nondistended, normoactive bowel sounds. No palpable organomegaly. PEG tube in place MUSCULOSKELETAL: No joint swelling or deformity. EXTREMITIES: No cyanosis, clubbing, or pedal edema. NEUROLOGICAL: Gross neurological examination did not reveal any focal deficits. SKIN: No rashes. no petechiae. - Labs CBC & Chem 7: 01/23/24 06:58 01/23/24 06:58 Labs: Abnormal Lab Results - Last 24 Hours (Table) 01/21/24 01/21/24 01/21/24 Range/Units 08:20 11:25 16:23 Lymphocytes # (Manual) 14.71 H (1.0-4.8) k/uL Sodium (137-145) mmol/L Chloride (98-107) mmol/L Creatinine (0.66-1.25) mg/dL Glucose (74-99) mg/dL POC Glucose (mg/dL) 116 H 113 H (70-110) mg/dL 01/21/24 01/22/24 Range/Units 20:12 07:28 Lymphocytes # (Manual) (1.0-4.8) k/uL Sodium 124 L (137-145) mmol/L Chloride 96 L (98-107) mmol/L Creatinine 0.50 L (0.66-1.25) mg/dL Glucose 103 H (74-99) mg/dL POC Glucose (mg/dL) 118 H (70-110) mg/dL Assessment and Plan Assessment: Altered mental status most likely metabolic encephalopathy, improving Non-Hodgkin lymphoma with chronic leukocytosis, follow-up with Dr. Duong as an outpatient Hyponatremia, most likely hypovolemic hyponatremia Mild transaminitis Mildly elevated lactic acid came back to reference range Mildly elevated TSH Dehydration Plan: Continue normal saline Monitor sodium level and electrolytes closely Dietary team consult Hematology/oncology consult Repeat labs Labs and medication were reviewed.. Continue same treatment. Continue with symptomatic treatment. Resume home medication. Monitor labs and vitals. DVT and GI prophylaxis. Further recommendations as per clinical course of the patient DVT prophylaxis: Subcutaneous heparin GI Prophylaxis: Ppi
[2024-01-23 09:29] LABS: Lymphocytes # (M) 19.47 k/uL (1.0-4.8); Monocytes # (M) 1.15 k/uL (0-1.0); Neutrophils # (M) 2.29 k/uL (1.3-7.7); Neutrophils % (M) 10 %; Nucleated Red Blood Cells 0 /100 WBC (0-0); Total Cells Counted 100
[2024-01-23 11:17] LABS: Glucose,Whole Blood 134 mg/dL (70-110)
--- NOTE | 2024-01-23 14:42 | P.PN ---
Subjective patient is seen for follow-up for hyponatremia secondary to SIADH.. Status post Samsca last night. Serum sodium improved to 132 today. No significant complaints. Objective - Vital Signs Vital signs: Vital Signs Temp 98.4 F 01/23/24 08:27 Pulse 74 01/23/24 11:35 Resp 16 01/23/24 11:35 BP 107/56 01/23/24 11:35 Pulse Ox 98 01/23/24 11:35 FiO2 Intake & Output 01/22/24 01/23/24 01/23/24 18:59 06:59 18:59 Intake Total 350 20 Output Total 900 1150 Balance -550 -1130 Intake: IV 10 20 Invasive Line 2 10 20 Oral 340 Output: Urine 900 1150 Other: Voiding Method External Catheter External Catheter # Bowel Movements 1 1 - Exam patient is awake, comfortable, no acute distress. Next and examination of the heart S1 and S2 Examination of the lungs bilateral breath sounds are heard Abdomen is soft nontender Examination of lower extremities shows no significant edema - Labs CBC & Chem 7: 01/23/24 06:58 01/23/24 12:39 Labs: Abnormal Lab Results - Last 24 Hours (Table) 01/23/24 01/23/24 01/23/24 Range/Units 06:58 06:58 11:16 WBC 22.9 H (3.8-10.6) k/uL RBC 3.10 L (4.30-5.90) m/uL Hgb 9.5 L (13.0-17.5) gm/dL Hct 29.5 L (39.0-53.0) % Lymphocytes # (Manual) 19.47 H (1.0-4.8) k/uL Monocytes # (Manual) 1.15 H (0-1.0) k/uL Sodium 132 L (137-145) mmol/L Creatinine 0.63 L (0.66-1.25) mg/dL Glucose 109 H (74-99) mg/dL POC Glucose (mg/dL) 134 H (70-110) mg/dL 01/23/24 Range/Units 12:39 WBC (3.8-10.6) k/uL RBC (4.30-5.90) m/uL Hgb (13.0-17.5) gm/dL Hct (39.0-53.0) % Lymphocytes # (Manual) (1.0-4.8) k/uL Monocytes # (Manual) (0-1.0) k/uL Sodium 132 L (137-145) mmol/L Creatinine (0.66-1.25) mg/dL Glucose (74-99) mg/dL POC Glucose (mg/dL) (70-110) mg/dL Assessment and Plan Assessment: 1. 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 Serum sodium in increased by about 10 points however if there is no further increase we can hold off on D5W. 2. 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 History of basal ganglia hematoma Plan: repeat sodium this afternoon. If there is no further increase in serum sodium we can hold off on D5W and repeat labs in a.m.
--- NOTE | 2024-01-23 15:02 | P.PN ---
Subjective Progress Note Date: 01/23/24 Principal diagnosis: Lethargy In follow-up today patient is sitting up in bed, he is watching television, he states that he does occasionally eat food for pleasure, he denies any difficulty swallowing or painful swallowing. He does have the PEG tube, denies any nausea or vomiting. No cough. He is not in any pain. Denies any bleeding. Objective - Vital Signs Vital signs: Vital Signs Temp 98.4 F 01/23/24 08:27 Pulse 74 01/23/24 11:35 Resp 16 01/23/24 11:35 BP 107/56 01/23/24 11:35 Pulse Ox 98 01/23/24 11:35 FiO2 Intake & Output 01/22/24 01/23/24 01/23/24 18:59 06:59 18:59 Intake Total 350 20 Output Total 900 1150 Balance -550 -1130 Intake: IV 10 20 Invasive Line 2 10 20 Oral 340 Output: Urine 900 1150 Other: Voiding Method External Catheter External Catheter # Bowel Movements 1 - Constitutional General appearance: Present: average body habitus, cooperative, no acute distress - EENT Eyes: Present: anicteric sclerae, EOMI ENT: Present: hearing grossly normal - Respiratory Details: resp even and unlabored - Cardiovascular Details: radial pulse 2+, regular - Gastrointestinal General gastrointestinal: Present: soft - Musculoskeletal Musculoskeletal: Present: generalized weakness - Psychiatric Psychiatric: Present: appropriate affect - Labs CBC & Chem 7: 01/23/24 06:58 01/23/24 12:39 Labs: Abnormal Lab Results - Last 24 Hours (Table) 01/22/24 01/23/24 01/23/24 Range/Units 10:28 06:58 06:58 WBC 22.9 H (3.8-10.6) k/uL RBC 3.10 L (4.30-5.90) m/uL Hgb 9.5 L (13.0-17.5) gm/dL Hct 29.5 L (39.0-53.0) % Lymphocytes # (Manual) 19.49 H 19.47 H (1.0-4.8) k/uL Monocytes # (Manual) 1.15 H (0-1.0) k/uL Sodium 132 L (137-145) mmol/L Creatinine 0.63 L (0.66-1.25) mg/dL Glucose 109 H (74-99) mg/dL POC Glucose (mg/dL) (70-110) mg/dL 01/23/24 Range/Units 11:16 WBC (3.8-10.6) k/uL RBC (4.30-5.90) m/uL Hgb (13.0-17.5) gm/dL Hct (39.0-53.0) % Lymphocytes # (Manual) (1.0-4.8) k/uL Monocytes # (Manual) (0-1.0) k/uL Sodium (137-145) mmol/L Creatinine (0.66-1.25) mg/dL Glucose (74-99) mg/dL POC Glucose (mg/dL) 134 H (70-110) mg/dL Assessment and Plan (1) Altered mental status Current Visit: Yes Status: Acute Priority: High Code(s): R41.82 - ALTERED MENTAL STATUS, UNSPECIFIED SNOMED Code(s): 519647778 (2) Hyponatremia Current Visit: Yes Status: Acute Priority: High Code(s): E87.1 - HYPO-OSMOLALITY AND HYPONATREMIA SNOMED Code(s): 57501621 (3) Waldenstrom macroglobulinemia Current Visit: Yes Status: Suspected Priority: Medium Code(s): C88.0 - W ALDENSTROM MACROGLOBULINEMIA SNOMED Code(s): 112585491 Plan: Altered mental status -Pt back to baseline Hyponatremia -? if 2/2 to recent brain hematoma. Neurology has seen pt. -Nephrology has seen pt. Fluid restrictions in place -Na+ 132 today Waldenstrm's macroglobulinemia -Suspect. Patient just recently saw Dr. Duong for the second time, day of admit. His initial lab workup in Sep did show a paraproteinemia of 1.97 g/dL, IgM 3039, IgA and IgG both low. Patient's hemoglobin baseline has been in the 11-12 range previously. -Paraproteinemia now measuring 1.81g/dl currently. Hgb 9.5. Stable overall. -Anemia work up-anemia of inflammation. No iron supplementation at this time. B12 levels elevated, no supplementation necessary at this time. -Subclinical hemolysis suspected. Hgb is stable at this time. -serum viscosity pending
[2024-01-23 16:18] LABS: Glucose,Whole Blood 121 mg/dL (70-110)
[2024-01-23 19:43] LABS: Glucose,Whole Blood 116 mg/dL (70-110)
[2024-01-24] MEDS ORDERED: ACETAMINOPHEN TAB 325 MG TAB PO PRN (04:58)
--- NOTE | 2024-01-24 06:12 | P.PN ---
Subjective Progress Note Date: 01/23/24 78 years old -[place] male with past medical problem of osteoarthritis and pneumonia. And has chronic leukocytosis and non-Hodgkin lymphoma and he follows up with Dr. Duong. Patient somewhat is poor historian and information were obtained from the patient, records and staff. Looks like patient was sent from his cancer center for being diaphoretic with altered mental status This morning patient is awake and alert and follows some commands, he looks mildly confused. He has muffled talking with lack of denture. His right arm is flexed. He has PEG tube in place. Patient is afebrile, blood pressure is stable He has leukocytosis 21.9 which looks his baseline over the last 4 to 5 months s geraldo September 2023 baseline is 25-31 Hemoglobin 10.8. Sodium 122, potassium slightly elevated 5.9 but looks hemolyzed sample Liver enzymes mildly elevated. Urinalysis is negative Lactic acid 2.8 came back to reference range and 2.[address] 8[address] of the brain is negative Chest x-ray is low volume showing atelectasis versus pulmonary edema Patient received 2 L of normal saline in the emergency room and continued on 75 mL/h He was admitted with hematology oncology team consult 01/21/2024 Patient is seen and evaluated in room at bedside; no specific complaints reported Vital signs are reviewed and remained stable Lab review shows sodium level trending down again today to 127 from 129 yesterday; white blood count continues to trend down and is at 19.1 this morning Patient admitted with altered mental status which is resolving --Sodium level trended down to 127 this morning; will consult nephrology for further evaluation 01/22/2024 Patient is seen and evaluated sitting up in bed; remains awake and alert; denies any complaints Vital signs are reviewed and remained stable with temperature of 97.8, pulse 74, respirations 17 and blood pressure of 123/84, O2 saturation 99% on room air Labs are reviewed and reveal WBC trending up to 23.2 from 19.1 yesterday(chronic leukocytosis), hemoglobin remained stable at 9.1, potassium stable at 4.4 how ever sodium continues to trend down and is at 124 this morning Patient has been evaluated by nephrology 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 Sodium levels improved we will follow-up on repeat labs. Continue with fluid restrictions. Dietary following as well is speech and patient is maintained on dysphagia diet. Continue with aspiration precautions. White count remains elevated and this is reported as chronic. Patient is afebrile with no reports of chest pain or shortness of breath. Review of systems: Constitutional: No reports of fatigue, fever, or chills Cardiovascular: No reports of chest pain or palpitations Respiratory: No reports of shortness of breath or cough GI: No reports of nausea, vomiting, or diarrhea : No reports of dysuria or retention Neurovascular: No reports of weakness or numbness All medications have been reviewed Physical exam: Gen: This is a 78-year-old male who is awake, alert and oriented x 2-3, well- developed, elderly appearing, thin built HEENT: Head is atraumatic, normocephalic. Pupils equal, round. Sclerae is anicteric. NECK: Supple. No JVD. No lymphadenopathy. No thyromegaly. LUNGS: Diminished breath sounds bilaterally otherwise clear to auscultation. No wheezes or rhonchi. No intercostal retractions. HEART: S1, S2 are muffled ABDOMEN: Soft. Bowel sounds are present. No masses. No tenderness. PEG tube noted EXTREMITIES: No pedal edema. No calf tenderness. NEUROLOGICAL: Patient is awake, alert and oriented x3. Cranial nerves 2 through 12 are grossly intact. Assessment: Altered mental status most likely metabolic encephalopathy secondary to hyponatremia, improving Non-Hodgkin lymphoma with chronic leukocytosis, follow-up with Dr. Duong as an outpatient Hyponatremia, most likely hypovolemic hyponatremia Mild transaminitis Mildly elevated lactic acid came back to reference range Mildly elevated TSH Dehydration Mild protein calorie malnutrition with a BMI of 19.4 GI prophylaxis DVT prophylaxis Full code Plan: Continue normal saline with nephrology following and sodium level above 130. Recommend follow-up on repeat lab Dietary team following as well as speech and patient is maintained on dysphagia diet recommend aspiration precautions and supervision with meals Hematology/oncology following as patient follows with Dr. Duong outpatient Will discuss further with consultations with case management/social work regarding discharge planning. Patient will be returning to [facility] where he resides Due to multiple complex medical issues, prognosis is guarded Possible discharge in 24 hours The impression and plan of care has been dictated by Bronwyn Flores, Nurse Practitioner as directed. Dr. Ethel MD I have performed a history and examination and MDM of this patient, discussed the same with the dictator, and agree with the dictator's assessment and plan as written ,documented as a scribe. Based on total visit time, I have performed more than 50% of the visit. Objective - Vital Signs Vital signs: Vital Signs Temp 98.4 F 01/23/24 08:27 Pulse 75 01/23/24 08:27 Resp 16 01/23/24 08:27 BP 102/62 01/23/24 08:27 Pulse Ox 99 01/23/24 08:27 FiO2 Intake & Output 01/22/24 01/23/24 01/23/24 18:59 06:59 18:59 Intake Total 350 20 Output Total 900 1150 Balance -550 -1130 Intake: IV 10 20 Invasive Line 2 10 20 Oral 340 Output: Urine 900 1150 Other: Voiding Method External Catheter External Catheter # Bowel Movements 1 - Labs CBC & Chem 7: 01/23/24 06:58 01/23/24 20:21 Labs: Abnormal Lab Results - Last 24 Hours (Table) 01/22/24 01/23/24 01/23/24 Range/Units 10:28 06:58 06:58 WBC 23.2 H 22.9 H (3.8-10.6) k/uL RBC 2.96 L 3.10 L (4.30-5.90) m/uL Hgb 9.1 L 9.5 L (13.0-17.5) gm/dL Hct 27.5 L 29.5 L (39.0-53.0) % Lymphocytes # (Manual) 19.49 H 19.47 H (1.0-4.8) k/uL Monocytes # (Manual) 1.15 H (0-1.0) k/uL Sodium 132 L (137-145) mmol/L Creatinine 0.63 L (0.66-1.25) mg/dL Glucose 109 H (74-99) mg/dL
[2024-01-24 06:14] LABS: Glucose,Whole Blood 110 mg/dL (70-110)
[2024-01-24 07:32] LABS: HCT 28.8 % (39.0-53.0); HGB 9.2 gm/dL (13.0-17.5); MCH 30.7 pg (25.0-35.0); MCHC 32.1 g/dL (31.0-37.0); MCV 95.6 fL (80.0-100.0); Mean Platelet Volume 7.7; Platelet Count 270 k/uL (150-450); RBC 3.01 m/uL (4.30-5.90); RDW 14.3 % (11.5-15.5); WBC 26.8 k/uL (3.8-10.6)
[2024-01-24 07:56] LABS: African American GFR (CKD) >90 (>60 ml/min/1.73 sqM); Anion Gap 7 mmol/L; Blood Urea Nitrogen 21 mg/dL (9-20); Calcium 9.1 mg/dL (8.4-10.2); Carbon Dioxide 27 mmol/L (22-30); Chloride 99 mmol/L (98-107); Glucose 110 mg/dL (74-99); Magnesium 1.6 mg/dL (1.6-2.3); Non-African American GFR(CKD) >90 (>60 ml/min/1.73 sqM); Potassium 4.7 mmol/L (3.5-5.1); Sodium 133 mmol/L (137-145)
[2024-01-24 11:39] LABS: Glucose,Whole Blood 117 mg/dL (70-110)
[2024-01-24 12:14] LABS: Lymphocytes # (M) 21.98 k/uL (1.0-4.8); Monocytes # (M) 1.07 k/uL (0-1.0); Neutrophils # (M) 3.75 k/uL (1.3-7.7); Neutrophils % (M) 14 %; Nucleated Red Blood Cells 0 /100 WBC (0-0); Total Cells Counted 200
--- NOTE | 2024-01-24 12:57 | P.PN ---
Subjective patient is seen for follow-up for hyponatremia secondary to SIADH.. Status post Samsca. Serum sodium improved to 132 and it is 133 today. No significant complaints. Objective - Vital Signs Vital signs: Vital Signs Temp 98.0 F 01/24/24 07:30 Pulse 79 01/24/24 11:39 Resp 16 01/24/24 11:39 BP 113/75 01/24/24 11:39 Pulse Ox 98 01/24/24 11:39 FiO2 Intake & Output 01/23/24 01/24/24 01/24/24 18:59 06:59 18:59 Intake Total 50 Output Total 400 400 Balance -350 -400 Intake: Oral 50 Output: Urine 400 400 Other: Voiding Method External Catheter External Catheter # Bowel Movements 1 - Exam patient is awake, comfortable, no acute distress. examination of the heart S1 and S2 Examination of the lungs bilateral breath sounds are heard Abdomen is soft nontender Examination of lower extremities shows no significant edema - Labs CBC & Chem 7: 01/24/24 06:20 01/24/24 06:20 Labs: Abnormal Lab Results - Last 24 Hours (Table) 01/17/24 01/23/24 01/23/24 Range/Units 10:27 12:39 16:17 WBC (3.8-10.6) k/uL RBC (4.30-5.90) m/uL Hgb (13.0-17.5) gm/dL Hct (39.0-53.0) % Lymphocytes # (Manual) (1.0-4.8) k/uL Monocytes # (Manual) (0-1.0) k/uL Serum Viscosity 2.0 H (1.5-1.9) Sodium 132 L (137-145) mmol/L BUN (9-20) mg/dL Creatinine (0.66-1.25) mg/dL Glucose (74-99) mg/dL POC Glucose (mg/dL) 121 H (70-110) mg/dL 01/23/24 01/23/24 01/24/24 Range/Units 19:42 20:21 06:20 WBC (3.8-10.6) k/uL RBC (4.30-5.90) m/uL Hgb (13.0-17.5) gm/dL Hct (39.0-53.0) % Lymphocytes # (Manual) (1.0-4.8) k/uL Monocytes # (Manual) (0-1.0) k/uL Serum Viscosity (1.5-1.9) Sodium 131 L 133 L (137-145) mmol/L BUN 21 H (9-20) mg/dL Creatinine 0.60 L (0.66-1.25) mg/dL Glucose 110 H (74-99) mg/dL POC Glucose (mg/dL) 116 H (70-110) mg/dL 01/24/24 01/24/24 Range/Units 06:20 11:36 WBC 26.8 H (3.8-10.6) k/uL RBC 3.01 L (4.30-5.90) m/uL Hgb 9.2 L (13.0-17.5) gm/dL Hct 28.8 L (39.0-53.0) % Lymphocytes # (Manual) 21.98 H (1.0-4.8) k/uL Monocytes # (Manual) 1.07 H (0-1.0) k/uL Serum Viscosity (1.5-1.9) Sodium (137-145) mmol/L BUN (9-20) mg/dL Creatinine (0.66-1.25) mg/dL Glucose (74-99) mg/dL POC Glucose (mg/dL) 117 H (70-110) mg/dL Assessment and Plan Assessment: 1. 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 Serum sodium in increased by about 10 points however if there is no further increase we can hold off on D5W. Increase free water through the PEG tube. 2. 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 History of basal ganglia hematoma Plan: increase free water to 60 mL every 4 hours via PEG tube. Repeat sodium in a.m.
--- NOTE | 2024-01-24 15:32 | P.PN ---
Subjective Progress Note Date: 01/24/24 Principal diagnosis: Lethargy In follow-up today patient has no new c/o, he is pleasant, no N, he just had a BM, staff do not report any black or bloody stool. Objective - Vital Signs Vital signs: Vital Signs Temp 98.0 F 01/24/24 07:30 Pulse 79 01/24/24 11:39 Resp 16 01/24/24 11:39 BP 113/75 01/24/24 11:39 Pulse Ox 98 01/24/24 11:39 FiO2 Intake & Output 01/23/24 01/24/24 01/24/24 18:59 06:59 18:59 Intake Total 50 Output Total 400 400 Balance -350 -400 Weight 61.235 kg Intake: Oral 50 Output: Urine 400 400 Other: Voiding Method External Catheter External Catheter External Catheter # Bowel Movements 1 - Constitutional General appearance: Present: cooperative, no acute distress, thin - EENT Eyes: Present: anicteric sclerae, EOMI ENT: Present: hearing grossly normal - Respiratory Details: resp even and unlabored - Peripheral edema leg Peripheral Edema: bilateral: None - Neurologic Neurologic: Present: CNII-XII intact - Musculoskeletal Musculoskeletal: Present: generalized weakness - Psychiatric Psychiatric Comment(s): Alert, pleasant, answers questions appropriately - Labs CBC & Chem 7: 01/24/24 06:20 01/24/24 06:20 Labs: Abnormal Lab Results - Last 24 Hours (Table) 01/17/24 01/23/24 01/23/24 Range/Units 10:27 16:17 19:42 WBC (3.8-10.6) k/uL RBC (4.30-5.90) m/uL Hgb (13.0-17.5) gm/dL Hct (39.0-53.0) % Lymphocytes # (Manual) (1.0-4.8) k/uL Monocytes # (Manual) (0-1.0) k/uL Serum Viscosity 2.0 H (1.5-1.9) Sodium (137-145) mmol/L BUN (9-20) mg/dL Creatinine (0.66-1.25) mg/dL Glucose (74-99) mg/dL POC Glucose (mg/dL) 121 H 116 H (70-110) mg/dL 0601/24/24 01/24/24 Range/Units 20:21 06:20 06:20 WBC 26.8 H (3.8-10.6) k/uL RBC 3.01 L (4.30-5.90) m/uL Hgb 9.2 L (13.0-17.5) gm/dL Hct 28.8 L (39.0-53.0) % Lymphocytes # (Manual) 21.98 H (1.0-4.8) k/uL Monocytes # (Manual) 1.07 H (0-1.0) k/uL Serum Viscosity (1.5-1.9) Sodium 131 L 133 L (137-145) mmol/L BUN 21 H (9-20) mg/dL Creatinine 0.60 L (0.66-1.25) mg/dL Glucose 110 H (74-99) mg/dL POC Glucose (mg/dL) (70-110) mg/dL 01/24/24 Range/Units 11:36 WBC (3.8-10.6) k/uL RBC (4.30-5.90) m/uL Hgb (13.0-17.5) gm/dL Hct (39.0-53.0) % Lymphocytes # (Manual) (1.0-4.8) k/uL Monocytes # (Manual) (0-1.0) k/uL Serum Viscosity (1.5-1.9) Sodium (137-145) mmol/L BUN (9-20) mg/dL Creatinine (0.66-1.25) mg/dL Glucose (74-99) mg/dL POC Glucose (mg/dL) 117 H (70-110) mg/dL Assessment and Plan (1) Altered mental status Current Visit: Yes Status: Acute Priority: High Code(s): R41.82 - ALTERED MENTAL STATUS, UNSPECIFIED SNOMED Code(s): 943568405 (2) Hyponatremia Current Visit: Yes Status: Acute Priority: High Code(s): E87.1 - HYPO- OSMOLALITY AND HYPONATREMIA SNOMED Code(s): 78470523 (3) Waldenstrom macroglobulinemia Current Visit: Yes Status: Suspected Priority: Medium Code(s): C88.0 - WALDENSTROM MACROGLOBULINEMIA SNOMED Code(s): 574779860 Plan: Altered mental status -Pt back to baseline Hyponatremia -? if 2/2 to recent brain hematoma. Neurology has seen pt. -Nephrology has seen pt. Fluid restrictions in place -Na+ 133 today Waldenstrm's macroglobulinemia -Suspect. Patient just recently saw Dr. Duong for the second time, day of this hospital admit. His initial lab workup in Sep did show a paraproteinemia of 1.97 g/dL, IgM 3039, IgA and IgG both low. Patient's hemoglobin baseline has been in the 11-12 range previously. -Paraproteinemia now measuring 1.81g/dl currently. Hgb 9.5. Stable overall. -Anemia work up-anemia of inflammation. No iron supplementation at this time. B12 levels elevated, no supplementation necessary at this time. -Subclinical hemolysis suspected. Hgb is stable at this time. -serum viscosity pending -F/U in DC plan. Plan for cont monitoring at this time
[2024-01-24 17:07] LABS: Glucose,Whole Blood 149 mg/dL (70-110)
[2024-01-24 20:09] LABS: Glucose,Whole Blood 117 mg/dL (70-110)
[2024-01-25 05:33] LABS: Glucose,Whole Blood 111 mg/dL (70-110)
--- NOTE | 2024-01-25 06:26 | P.PN ---
Subjective Progress Note Date: 01/24/24 78 years old -[place] male with past medical problem of osteoarthritis and pneumonia. And has chronic leukocytosis and non-Hodgkin lymphoma and he follows up with Dr. Duong. Patient somewhat is poor historian and information were obtained from the patient, records and staff. Looks like patient was sent from his cancer center for being diaphoretic with altered mental status This morning patient is awake and alert and follows some commands, he looks mildly confused. He has muffled talking with lack of denture. His right arm is flexed. He has PEG tube in place. Patient is afebrile, blood pressure is stable He has leukocytosis 21.9 which looks his baseline over the last 4 to 5 months s geraldo September 2023 baseline is 25-31 Hemoglobin 10.8. Sodium 122, potassium slightly elevated 5.9 but looks hemolyzed sample Liver enzymes mildly elevated. Urinalysis is negative Lactic acid 2.8 came back to reference range and 2.[address] of the brain is negative Chest x-ray is low volume showing atelectasis versus pulmonary edema Patient received 2 L of normal saline in the emergency room and continued on 75 mL/h He was admitted with hematology oncology team consult 01/21/2024 Patient is seen and evaluated in room at bedside; no specific complaints reported Vital signs are reviewed and remained stable Lab review shows sodium level trending down again today to 127 from 129 yesterday; white blood count continues to trend down and is at 19.1 this morning Patient admitted with altered mental status which is resolving --Sodium level trended down to 127 this morning; will consult nephrology for further evaluation 01/22/2024 Patient is seen and evaluated sitting up in bed; remains awake and alert; denies any complaints Vital signs are reviewed and remained stable with temperature of 97.8, pulse 74, respirations 17 and blood pressure of 123/84, O2 saturation 99% on room air Labs are reviewed and reveal WBC trending up to 23.2 from 19.1 yesterday(chronic leukocytosis), hemoglobin remained stable at 9.1, potassium stable at 4.4 how ever sodium continues to trend down and is at 124 this morning Patient has been evaluated by nephrology 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 Sodium levels improved we will follow-up on repeat labs. Continue with fluid restrictions. Dietary following as well is speech and patient is maintained on dysphagia diet. Continue with aspiration precautions. White count remains elevated and this is reported as chronic. Patient is afebrile with no reports of chest pain or shortness of breath. 01/24/2024 Patient seen in follow-up today with no acute overnight issues noted. Nephrology following recommending increasing free water flushes and continuing with fluid restrictions and follow-up on repeat labs in the a.m. Patient denies any chest pain or shortness of breath. Patient reports to tolerating diet. Plan is to return to [facility] where he resides on discharge. Will follow-up with case management/social work regarding discharge planning. Hematology/oncology following as well and will follow-up in the outpatient setting. Review of systems: Constitutional: No reports of fatigue, fever, or chills Cardiovascular: No reports of chest pain or palpitations Respiratory: No reports of shortness of breath or cough GI: No reports of nausea, vomiting, or diarrhea : No reports of dysuria or retention Neurovascular: No reports of weakness or numbness All medications have been reviewed Physical exam: Gen: This is a 78-year-old male who is awake, alert and oriented x 2-3, well- developed, elderly appearing, thin built HEENT: Head is atraumatic, normocephalic. Pupils equal, round. Sclerae is a nicteric. NECK: Supple. No JVD. No lymphadenopathy. No thyromegaly. LUNGS: Diminished breath sounds bilaterally otherwise clear to auscultation. No wheezes or rhonchi. No intercostal retractions. HEART: S1, S2 are muffled ABDOMEN: Soft. Bowel sounds are present. No masses. No tenderness. PEG tube noted EXTREMITIES: No pedal edema. No calf tenderness. NEUROLOGICAL: Patient is awake, alert and oriented x3. Cranial nerves 2 through 12 are grossly intact. Assessment: Altered mental status most likely metabolic encephalopathy secondary to hyponatremia, improving Non-Hodgkin lymphoma with chronic leukocytosis, follow-up with Dr. Duong as an outpatient Hyponatremia, most likely hypovolemic hyponatremia Mild transaminitis Mildly elevated lactic acid came back to reference range Mildly elevated TSH Dehydration Mild protein calorie malnutrition with a BMI of 19.4 GI prophylaxis DVT prophylaxis Full code Plan: Continue normal saline with nephrology following and sodium level improving. Continue with fluid restrictions and per nephrology increasing free water flushes. Recommend follow-up on repeat lab Dietary team following as well as speech and patient is maintained on dysphagia diet recommend aspiration precautions and supervision with meals Hematology/oncology following as patient follows with Dr. Duong outpatient Will discuss further with consultations with case management/social work regarding discharge planning. Patient will be returning to [facility] where he resides Due to multiple complex medical issues, prognosis is guarded Possible discharge in 24 hours The impression and plan of care has been dictated by Bronwyn Flores, Nurse Practitioner as directed. Dr. Ethel MD I have performed a history and examination and MDM of this patient, discussed the same with the dictator, and agree with the dictator's assessment and plan as written ,documented as a scribe. Based on total visit time, I have performed more than 50% of the visit. Objective - Vital Signs Vital signs: Vital Signs Temp 98 F 01/25/24 04:00 Pulse 81 01/25/24 04:00 Resp 16 01/25/24 04:00 BP 120/67 01/25/24 04:00 Pulse Ox 97 01/25/24 04:00 FiO2 Intake & Output 01/24/24 01/24/24 01/25/24 06:59 18:59 06:59 Output Total 400 250 300 Balance -400 -250 -300 Weight 61.235 kg Output: Urine 400 250 300 Other: Voiding Method External Catheter External Catheter External Catheter # Bowel Movements 1 1 - Labs CBC & Chem 7: 01/24/24 06:20 01/24/24 06:20 Labs: Abnormal Lab Results - Last 24 Hours (Table) 01/17/24 01/24/24 01/24/24 Range/Units 10:27 06:20 06:20 WBC 26.8 H (3.8-10.6) k/uL RBC 3.01 L (4.30-5.90) m/uL Hgb 9.2 L (13.0-17.5) gm/dL Hct 28.8 L (39.0-53.0) % Lymphocytes # (Manual) 21.98 H (1.0-4.8) k/uL Monocytes # (Manual) 1.07 H (0-1.0) k/uL Serum Viscosity 2.0 H (1.5-1.9) Sodium 133 L (137-145) mmol/L BUN 21 H (9-20) mg/dL Creatinine 0.60 L (0.66-1.25) mg/dL Glucose 110 H (74-99) mg/dL POC Glucose (mg/dL) (70-110) mg/dL 01/24/24 01/24/24 01/24/24 Range/Units 11:36 17:05 20:07 WBC (3.8-10.6) k/uL RBC (4.30-5.90) m/uL Hgb (13.0-17.5) gm/dL Hct (39.0-53.0) % Lymphocytes # (Manual) (1.0-4.8) k/uL Monocytes # (Manual) (0-1.0) k/uL Serum Viscosity (1.5-1.9) Sodium (137-145) mmol/L BUN (9-20) mg/dL Creatinine (0.66-1.25) mg/dL Glucose (74-99) mg/dL POC Glucose (mg/dL) 117 H 149 H 117 H (70-110) mg/dL 01/25/24 Range/Units 05:32 WBC (3.8-10.6) k/uL RBC (4.30-5.90) m/uL Hgb (13.0-17.5) gm/dL Hct (39.0-53.0) % Lymphocytes # (Manual) (1.0-4.8) k/uL Monocytes # (Manual) (0-1.0) k/uL Serum Viscosity (1.5-1.9) Sodium (137-145) mmol/L BUN (9-20) mg/dL Creatinine (0.66-1.25) mg/dL Glucose (74-99) mg/dL POC Glucose (mg/dL) 111 H (70-110) mg/dL
[2024-01-25 09:10] LABS: African American GFR (CKD) >90 (>60 ml/min/1.73 sqM); Anion Gap 9 mmol/L; Blood Urea Nitrogen 20 mg/dL (9-20); Calcium 9.3 mg/dL (8.4-10.2); Carbon Dioxide 26 mmol/L (22-30); Chloride 98 mmol/L (98-107); Glucose 103 mg/dL (74-99); Magnesium 1.6 mg/dL (1.6-2.3); Non-African American GFR(CKD) >90 (>60 ml/min/1.73 sqM); Potassium 4.3 mmol/L (3.5-5.1); Sodium 133 mmol/L (137-145)
[2024-01-25 11:45] LABS: Glucose,Whole Blood 113 mg/dL (70-110)
--- NOTE | 2024-01-25 13:18 | P.PN ---
Subjective patient is seen for follow-up for hyponatremia secondary to SIADH.. Status post Samsca. Serum sodium improved to 132 and it is staying at133 today. No significant complaints. Objective - Vital Signs Vital signs: Vital Signs Temp 98.0 F 01/25/24 11:20 Pulse 74 01/25/24 11:20 Resp 16 01/25/24 11:20 BP 109/66 01/25/24 11:20 Pulse Ox 99 01/25/24 11:20 FiO2 Intake & Output 01/24/24 01/25/24 01/25/24 18:59 06:59 18:59 Intake Total 0 Output Total 250 300 Balance -250 -300 0 Weight 61.235 kg 55.1 kg Intake: Oral 0 Output: Urine 250 300 Other: Voiding Method External Catheter External Catheter External Catheter # Bowel Movements 1 1 - Exam patient is awake, comfortable, no acute distress. examination of the heart S1 and S2 Examination of the lungs bilateral breath sounds are heard Abdomen is soft nontender Examination of lower extremities shows no significant edema - Labs CBC & Chem 7: 01/24/24 06:20 01/25/24 07:35 Labs: Abnormal Lab Results - Last 24 Hours (Table) 01/24/24 01/24/24 01/25/24 Range/Units 17:05 20:07 05:32 Sodium (137-145) mmol/L Creatinine (0.66-1.25) mg/dL Glucose (74-99) mg/dL POC Glucose (mg/dL) 149 H 117 H 111 H (70-110) mg/dL 01/25/24 01/25/24 Range/Units 07:35 11:43 Sodium 133 L (137-145) mmol/L Creatinine 0.57 L (0.66-1.25) mg/dL Glucose 103 H (74-99) mg/dL POC Glucose (mg/dL) 113 H (70-110) mg/dL Assessment and Plan Assessment: 1. 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 Serum sodium had increased by about 10 points however , there was no further increase. Free water flushes were increased through the PEG tube. 2. 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 History of basal ganglia hematoma Plan: continue current free water flushes monitor sodium as outpatient if discharged.
--- NOTE | 2024-01-25 15:42 | P.DS ---
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 Duong as an outpatient Hyponatremia, most likely hypovolemic hyponatremia Mild transaminitis Mildly elevated lactic acid came back to reference range Mildly elevated TSH Dehydration Mild protein calorie malnutrition with a BMI of 19.4 GI prophylaxis DVT prophylaxis Full code Discharge disposition Patient is being discharged in a stable condition with guarded prognosis to [facility]. Patient will follow-up with Dr. Pettit in the outpatient setting upon discharge. Patient is to continue with current medications and tube feedings with increase in water flushes as well as fluid restrictions. Patient to follow-up with nephrology outpatient as scheduled. Total time taken is greater than 35 minutes. Hospital course This is a 78-year-old male who was recently admitted with altered mental status with metabolic encephalopathy with low sodium being closely monitored. Patient being followed by nephrology with concerns of hypovolemic hyponatremia. Patient is on tube feedings and was evaluated by dietary continued at goal as mentioned below and tolerating. Patient sodium is improved at 133 and recommending to follow-up with nephrology outpatient. Free water flushes of the PEG tube have been increased to 60 mL every 4 hours. Patient to continue on aspiration precautions and pured diet with supervision with meals and head of the bed elevated 30 to 45 degrees at all times. Currently no reports of chest pain, shortness of breath, or palpitations. Patient is afebrile. No reports of nausea or vomiting and patient is tolerating diet. Patient will be going to [facility] today. Guarded prognosis Physical exam: Gen: This is a 78-year-old male who is awake, alert and oriented x 2, baseline, well-developed, elderly appearing, thin built HEENT: Head is atraumatic, normocephalic. Pupils equal, round. Sclerae is anicteric. NECK: Supple. No JVD. No lymphadenopathy. No thyromegaly. LUNGS: Diminished breath sounds bilaterally otherwise clear to auscultation. No wheezes or rhonchi. No intercostal retractions. HEART: S1, S2 are muffled ABDOMEN: Soft. PEG tube noted, functioning bowel sounds are present. No masses. No tenderness. EXTREMITIES: No pedal edema. No calf tenderness. NEUROLOGICAL: Patient is awake, alert and oriented x2. Cranial nerves 2 through 12 are grossly intact. Diffusely weak Please refer to medication reconciliation sheet for a list of medications. The impression and plan of care has been dictated by Bronwyn Flores, Nurse Practitioner as directed. Dr. Ethel MD I have performed a history and examination and MDM of this patient, discussed the same with the dictator, and agree with the dictator's assessment and plan as written ,documented as a scribe. Based on total visit time, I have performed more than 50% of the visit. Patient Condition at Discharge: Fair Plan - Discharge Summary Discharge Rx Participant: Yes New Discharge Prescriptions: New Acetaminophen Tab [Tylenol] 650 mg PO Q6HR PRN tab PRN Reason: Fever And/ Or Pain Heparin Sodium,Porcine (1 ml) [Heparin Sodium] 5,000 unit SQ Q12HR each Continue Osmolite 1.5 65 ml PEG/G-TUBE DIRECTED Baclofen [Lyvispah] 10 mg PO TID PRN PRN Reason: hiccups Z-Guard 1 applic TOPICAL Q12H Famotidine [Pepcid] 20 mg PO BID Sertraline [Zoloft] 25 mg PO DAILY Discontinued amLODIPine [Norvasc] 5 mg PO DAILY lisinopriL [Zestril] 10 mg PO DAILY Discharge Medication List Baclofen [Lyvispah] 10 mg PO TID PRN 01/16/24 [History] Famotidine [Pepcid] 20 mg PO BID 01/16/24 [History] Osmolite 1.5 65 ml PEG/G-TUBE DIRECTED 01/16/24 [History] Sertraline [Zoloft] 25 mg PO DAILY 01/16/24 [History] Z-Guard 1 applic TOPICAL Q12H 01/16/24 [History] Acetaminophen Tab [Tylenol] 650 mg PO Q6HR PRN tab 01/25/24 [Rx] Heparin Sodium,Porcine (1 ml) [Heparin Sodium] 5,000 unit SQ Q12HR each 01/25/24 [Rx] Follow up Appointment(s)/Referral(s): Tad Pettit MD [Primary Care Provider] - 1-2 days Domenic Duong MD [STAFF PHYSICIAN] - 04/10/24 11:30 am
[2024-01-25 16:49] LABS: Glucose,Whole Blood 105 mg/dL (70-110)
[2024-01-25 20:16] LABS: Glucose,Whole Blood 95 mg/dL (70-110)
[2024-01-25 22:12] VITALS: BP 124/69; PULSE 75; RESP 18; TEMP 98.2
== END 2024-01-25 22:41 | DRG 643 ==
LOC: EC 10:20 → 3SCARD 13:57
PROVIDERS: ADMIT Hospitalist; ATTEND Hospitalist
DX: E22.2 Syndrome of inappropriate secretion of antidiuretic hormone (principal); G93.41 Metabolic encephalopathy; E44.1 Mild protein-calorie malnutrition; C85.90 Non-Hodgkin lymphoma, unspecified, unspecified site; Z68.1 Body mass index [BMI] 19.9 or less, adult; I69.251 Hemiplegia and hemiparesis following other nontraumatic intracranial hemorrhage affecting right dominant side; Z43.1 Encounter for attention to gastrostomy; C88.0 Waldenstrom macroglobulinemia; E86.0 Dehydration; I10 Essential (primary) hypertension; I69.222 Dysarthria following other nontraumatic intracranial hemorrhage; I69.291 Dysphagia following other nontraumatic intracranial hemorrhage; R13.10 Dysphagia, unspecified; E86.1 Hypovolemia; M19.90 Unspecified osteoarthritis, unspecified site; R74.01 Elevation of levels of liver transaminase levels; R94.6 Abnormal results of thyroid function studies; Z79.899 Other long term (current) drug therapy; Z87.891 Personal history of nicotine dependence; Z71.3 Dietary counseling and surveillance
CPT/HCPCS: 36415; 70450; 71045; 80048; 80053; 81001; 81003; 82533; 82607; 82728; 82746; 83010; 83540; 83550; 83605; 83615; 83735; 83880; 83883; 83921; 83935; 84100; 84145; 84165; 84295; 84443; 84484; 85025; 85045; 85610; 85730; 85810; 93005; 96361; 96372; 96374; 96375; 99291

== ENCOUNTER → 2024-02-06 | Outpatient (CLI) | payer MEDICARE ==
--- NOTE | 2024-02-06 08:45 | CT ---
EXAMINATION TYPE: CT brain wo con CT DLP: 1156 mGycm, Automated exposure control for dose reduction was used. DATE OF EXAM: 02/06/2024 7:05 AM COMPARISON: 01/15/2024, 11/15/2023, 09/20/2023.. 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 Contrast used: None. Oral contrast used: None. FINDINGS: Brain: Extra-axial spaces: Similar appearance of soft tissue lesion near the left cranium 40 Hounsfield unit s and 4 x 1.4 cm. No high density blood products are identified to suggest extra-axial hemorrhage. Cerebral parenchyma: Minimal Linear hyperdensity within the area of prior hemorrhage on 09/20/2023. No new acute hemorrhage identified. The rojas-white junction is well differentiated. Cerebellum: Unremarkable. Mass effect: No evidence of midline shift. Intracranial vasculature: unremarkable Soft tissues: Normal. Calvarium/osseous structures: No depressed skull fracture. Paranasal sinuses and mastoid air cells: Mild scattered paranasal sinus disease. Visualized orbits: Orbital contents are intact. IMPRESSION: 1. Resolution of prior left frontal lobe/dolan radiata hemorrhage. 2. Stable left extra-axial parietal lobe lesion possibly representing a meningioma. Consider MRI for evaluation.
== END | disposition home or self-care (01) ==
LOC: RADCTMAIN 06:40
PROVIDERS: ATTEND Neurological Surgery
DX: C71.3 Malignant neoplasm of parietal lobe (principal); I61.8 Other nontraumatic intracerebral hemorrhage
CPT/HCPCS: 70450

== ENCOUNTER → 2024-04-23 | Outpatient (CLI) | payer MEDICARE ==
--- NOTE | 2024-04-23 11:27 | MR ---
EXAMINATION TYPE: MR brain wo/w con DATE OF EXAM: 04/23/2024 11:00 AM CLINICAL INDICATION: Male, 78 years old with history of D49.6 BRAIN NEOPLASM C85.90 LYMPHOMA; PHH, No n-Hodgkins lymphoma, neoplasm of brain. COMPARISON: CTs dating back to 09/20/2023. TECHNIQUE: Multi planar, multi sequence imaging was performed through the brain including: T1, T2, In version recovery, susceptibility weighted imaging and gradient echo imaging and Diffusion weighted im aging. The patient was then given intravenous contrast and multi planar, T1 fat-saturation images wer e obtained. IV Contrast: 6 cc Gadavist FINDINGS: Left posterior dural based lesion measuring 34 x 19 x 38 mm with homogenous postcontrast en hancement and dural tail noted. Sequela prior left intraparenchymal hemorrhage in the Left dolan rad iata. Right thalamus blooming artifact and susceptibility weighted imaging possibly representing prio r hemorrhage versus vascular malformation. No abnormal postcontrast enhancement otherwise visualized parenchymal 8. Scattered white matter changes which are nonspecific. No evidence for ventricular dila tion. The bone marrow signal is within normal limits. Paranasal sinuses and mastoid air cells: No significant paranasal sinus disease. Visualized orbits: Orbital contents are intact. IMPRESSION: 1. Dural based lesion with homogenous enhancement and dural tail. Findings favor meningioma. Finding s similar to 09/20/2023 CT. Consider continued surveillance of this lesion. 2. Sequela of prior intracranial hemorrhage within the left dolan radiata with susceptibility artif act on today's exam. 3. Right thalamus prior hemorrhage or vascular malformation. No abnormal postcontrast enhancement. 4. No evidence for restricted diffusion to suggest acute/subacute CVA. 5. Nonspecific white matter changes, likely related to small vessel ischemic disease.
== END | disposition home or self-care (01) ==
LOC: RADMRIMAIN 09:55
PROVIDERS: ATTEND Neurological Surgery
DX: D49.6 Neoplasm of unspecified behavior of brain (principal); C85.90 Non-Hodgkin lymphoma, unspecified, unspecified site; I62.9 Nontraumatic intracranial hemorrhage, unspecified
CPT/HCPCS: 70553

== ENCOUNTER → 2024-07-20 | Outpatient (CLI) | payer MEDICARE ==
--- NOTE | 2024-07-20 12:30 | MR ---
EXAMINATION TYPE: MR brain wo/w con DATE OF EXAM: 07/20/2024 11:39 AM COMPARISON: 05/03/2024. CLINICAL INDICATION: Male, 78 years old with history of D49.6 NEOPLASM OF UNSP C85.90 NONHODGKINS LYM PHOMA; PHH, Neoplasm of brain, hx non-Hodgkins lymphoma. TECHNIQUE: Multi planar, multi sequence imaging was performed through the brain including: T1, T2, In version recovery, susceptibility weighted imaging and gradient echo imaging and Diffusion weighted im aging. The patient was then given intravenous contrast and multi planar, T1 fat-saturation images wer e obtained. IV Contrast: 6 mL Gadobutrol FINDINGS: Punctate focus of restricted diffusion in the left jennifer without enhancement. Series 303 mele ge 88 similar to prior imaging on 04/23/2024 measuring 2 mm. Left posterior scalp pleural-based mass measuring 38 x 31 x 18 mm AMS similar in size given differenc es in slice selection and technique. There is somewhat homogenous postcontrast and enhancement. Sequela prior left intraparenchymal hemorrhage in the Left dolan radiata. Right thalamus blooming ar tifact and susceptibility weighted imaging possibly representing prior hemorrhage versus vascular mal formation. No abnormal postcontrast enhancement otherwise visualized. Scattered white matter changes which are n onspecific. No evidence for ventricular dilation. The bone marrow signal is within normal limits. Paranasal sinuses and mastoid air cells: Left maxillary sinus mucosal thickening. Visualized orbits: Orbital contents are intact. IMPRESSION: 1. Stable size of dural based lesion with homogenous enhancement and dural tail. Findings favor meni ngioma. Findings similar to 09/20/2023 CT. Consider continued surveillance of this lesion. 2. Sequela of prior intracranial hemorrhage within the left dolan radiata with susceptibility artif act on today's exam. 3. Right thalamus prior hemorrhage or vascular malformation. No abnormal postcontrast enhancement. 4. Similar focus of restricted diffusion in the left left jennifer compared to prior on 04/23/2024. Etiolo gy uncertain. No enhancement is seen within this region. 5. Nonspecific white matter changes, likely related to small vessel ischemic disease. [facility], , 07/20/2024 12:28 PM
== END | disposition home or self-care (01) ==
LOC: RADMRIMAIN 10:10
PROVIDERS: ATTEND Neurological Surgery
DX: D49.6 Neoplasm of unspecified behavior of brain (principal); C85.90 Non-Hodgkin lymphoma, unspecified, unspecified site
CPT/HCPCS: 70553; A9585